=== PATIENT | male | born 1970 | race Caucasian/White ===

== ENCOUNTER 2019-04-22 11:35 | Outpatient (CLI) | payer MEDICAID, SELFPAY ==
[2019-04-22 11:55] LABS: Basophils # 3.5 10^3/uL (0.0-0.1); Eosinophils # 0.6 10^3/uL (0.0-0.8); Hematocrit 41.3 % (42.0-52.0); Hemoglobin 12.6 g/dL (11.7-16.6); Mean Corpuscular HGB Conc 30.5 g/dL (30.0-36.0); Mean Corpuscular Hemoglobin 29.1 pg (28.0-34.0); Mean Corpuscular Volume 95.4 fL (80-94); Mean Platelet Volume 9.7 fL (7.4-10.4); Monocytes # 1.9 10^3/uL (0.2-0.9); Monocytes % 3.3 %; Neutrophils # 28.6 10^3/uL (1.8-7.7); Neutrophils % 49.6 %; Nucleated Red Blood Cells # 0.4 /100WBC; Nucleated Red Blood Cells % 0.7 %; Platelet Count 467 10^3/cmm (130-400); Red Blood Count 4.33 10^6/uL (4.1-5.3); Red Cell Distribution Width 19.1 % (12.1-15.1)
[2019-04-22 12:18] LABS: Slide Review Slide Review Perform
[2019-04-22 12:24] LABS: White Blood Count 57.7 10^3/uL (4.0-10.0)
[2019-04-22 12:26] LABS: Absolute Eosinophils 0.5 10^3/cmm (0.0-0.7); Basophils Absolute 0.6 10^3/cmm (0.0-0.2); Eosinophils 1 %; Lymphocytes 4 %; Monocytes Absolute 0.6 10^3/cmm (0.1-0.6); Segmented Neutrophils 33 %; Total Cells Counted 100 (0-100)
[2019-04-22 12:27] LABS: Platelet Estimate Increased (Normal)
== END 2019-04-22 11:36 | disposition home or self-care (01) ==
LOC: LAB 11:37
PROVIDERS: Family Provider Internal Medicine; PCP Internal Medicine; Visit Provider Nurse Practitioner Family
DX: D72.829 Elevated white blood cell count, unspecified (principal)
CPT/HCPCS: 85007; 85025

== ENCOUNTER 2019-04-27 14:59 | Outpatient (CLI) | payer MEDICAID, SELFPAY ==
--- NOTE | 2019-04-27 21:30 | ONC CON_ITS ---
Dr. Zamora New Patient Note Patient: Pradip Obrien Unit #: [id number]: 1970 Dicatated By: Fabricio Zamora M.D.Date of Visit: Apr 27, 2019 Onc MED New Patient/Consult Referring Physician: Dr. GAL SINGH M.D. Chief Complaint: Leukocytosis and suspected chronic myeloid leukemia. History of Present Illness: This is a 48 year-old man with suspected chronic myeloid leukemia. He has multiple medical illnesses including obesity, hypertension, hyperlipidemia, and type 2 diabetes. He has not required medication for the diabetes since undergoing a gastric sleeve procedure in 2014. He also has coronary artery disease, and he suffered an acute non-ST elevation myocardial infarction in April 2018. He has been treated medically. He had undergone radioactive iodine ablation for Graves' disease at age 18, and he has had subsequent hypothyroidism. He was treated for pancreatitis in 2012, and he also has a history of gout. He had recently been to Dr. Singh's office to establish primary care. His initial laboratory studies, from 04/20/2019, showed significantly elevated white blood cell count at 60,000 with hemoglobin 13.5 g and platelet count 520,000. He then had a repeat CBC here on 04/22/2019. It showed similar findings with hemoglobin 12.6 g, white blood cell count 57,700, and platelet count 467,000. The differential included 33% segs, 26% bands, 15% metamyelocytes, 19% myelocytes, 4% lymphocytes, 1% monocytes, 1% eosinophils, and 1% basophils. I reviewed that blood smear, and it did not appear to show any blasts. 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 His ECOG score is 1. His appetite is not particularly good, but his weight is stable. He has not had fever. He has had occasionally night sweating. He sometimes has shortness of breath. He has had a nonproductive cough for years. He has not been having chest pain. He loose stools most of the time. He has no other GI or complaints. He has pain in his right knee, significant enough to limit his activity. He has had episodes of gout in his left foot. He does not complain of headache. He sometimes has dizziness. He has some tingling in his feet, consistent with neuropathy. Past Medical History: His medical history includes chronic obstructive pulmonary disease, coronary artery disease, depression, gout, hyperlipidemia, hypertension, hypothyroidism, obesity, peripheral neuropathy, and type II diabetes. He had an acute non-ST elevation myocardial infarction in April 2018. He was treated for pancreatitis in 2012, and he underwent radioactive iodine ablation for Graves Disease in 1989. Past Surgical History: His surgical/procedural history includes cholecystectomy, arthroscopic right knee surgery in 2017, and gastric sleeve procedure in 2014. Medications: Allopurinol 1 Tablet (of 300 mg) Oral daily, amLODIPine Besylate 1 Tablet (of 10 mg) Oral daily, Clopidogrel Bisulfate 1 Tablet (of 75 mg) Oral daily, Gabapentin 1 Tablet (of 600 mg) Oral t.i.d., Levothyroxine Sodium 1 Tablet (of 200 mcg) Oral daily, Lisinopril 1 Tablet (of 40 mg) Oral daily, Metoprolol Tartrate 1 Tablet (of 50 mg) Oral b.i.d., Multivitamin 1 Tablet Oral daily, Nitroglycerin Tablet, sublingual Sublingual PRN, Sertraline HCl 1 Tablet (of 50 mg) Oral daily, Simvastatin 1 Tablet (of 40 mg) Oral daily Allergies: No Known Allergies. Social History: Mr. Obrien is single and he is unemployed. He has a history of smoking since age 18, previously in the range of 1 pack of cigarettes daily. He is now smoking less than a pack per day. He does not drink alcohol. Family History: He does not know anything about his father. Mother is still living at age 78. She has dementia, and she has had a stroke. he has 1 sister who is in good health. His maternal grandmother had some type of leukemia or bone cancer. Three maternal aunts had cancer, one with lung cancer, one with colon cancer, and one with breast cancer. Review Of Symptoms: Constitutional - Patient energy level is overall pretty good. He is able to perform all daily activities. He takes care of this mother. Appetite comes and goes and weight is stable. No fever, chills, hot flashes. He has occasional night sweats. ECOG score is 1, Eyes - He has some visual difficulties, ENMT - He has chronic sinus congestion/drainage. No mouth sores. No sore throat or difficulty swallowing, Endocrine - Patient had previous radioactive iodine ablation for Graves Disease with subsequent hypothyroidism, Hematologic/Lymphatic - No abnormal bruising or bleeding, Respiratory - He sometimes has shortness of breath. No cough. No pleuritic pain or hemoptysis, Cardiovascular - No angina pain. No palpitations, Gastrointestinal - No nausea or vomiting. No heartburn or acid reflux. No constipation and no diarrhea, but he does tend to have loose stools. No blood in the stool or black stools, Genitourinary (M) - No dysuria or hematuria. No urinary frequency. No urgency or incontinence, Musculoskeletal - He has pain in his right knee which limits his activity. He has had gout in his left foot, Integumentary - No skin complications, Neurologic - No headache. He has occasional dizziness. He has neuropathy in his feet, Psychiatric - He has some anxiety and depression which is well controlled with medications. He wakes up 1-2 times a night. Vital Signs: Performed on Apr 27, 2019 15:39: 0, 53.65 (HIGH), 2.42 sq.m, 65.00 in, 97 %, 60 /min, 24 /min, 146/74 mm(hg) (HIGH), 97.8 F (LOW), and 322.4 lbs (HIGH). Physical Examination: Constitutional - He is very obese, and he has limited mobility. He does not appear acutely ill, Eyes - Sclerae nonicteric. Conjunctivae clear, ENMT - No lesions noted in the oral cavity, Neck - No mass or thyromegaly, Hematologic/Lymphatic - No cervical, clavicular, or axillary adenopathy, Respiratory - Lungs are clear with somewhat limited air movement bilaterally, Cardiovascular - Heart rhythm is regular. There is no murmur, gallop, or rub noted, Abdomen - Soft and non-tender. Exam is limited due to his body habitus. There were does not appear enlarged. I am not able to palpate the spleen. There is no abdominal mass or ascites noted and there is no inguinal adenopathy, Back/Spine - No spine or CVA tenderness noted, Extremities - No edema. Dorsalis pedis pulses are palpable bilaterally, Integumentary - No rashes. No suspicious skin lesions noted, Neurologic - No focal neurologic deficits noted. Impression: 1. Patient with leukocytosis, predominantly granulocytes with left shift, but without apparent blasts. He also has mildly elevated platelet count. The findings are consistent with chronic myeloid leukemia. He does not appear to be overtly symptomatic. 2. He had undergone radioactive iodine ablation for Graves' disease at age 18 with subsequent hypothyroidism. His recent TSH level was found to be markedly elevated. His other medical illnesses include: 3. Obesity, for which he underwent a gastric sleeve procedure in 2014. 4. Hypertension. 5. Hyperlipidemia. 6. Type 2 diabetes, not requiring medication since the gastric sleeve procedure. 7. Coronary artery disease with acute non-ST elevation myocardial infarction in April 2018. 8. COPD. 9. He has mild peripheral neuropathy. 10. History of gout. 11. He has a history of pancreatitis in 2012. Plan: The laboratory findings were reviewed with the patient. We discussed the clinical implications. The probability is very high that he has chronic myeloid leukemia, which is now very treatable. He will need additional laboratory studies, which I will schedule to be done early next week. These will include CBC, comprehensive metabolic profile, LDH level, uric acid level, a FISH study for BCR/abl, and comprehensive hepatitis profile (per NCCN guidelines). Assuming the FISH study is positive, he will then need a quantitative PCR for BCR/abl and he will need to undergo bone marrow aspiration/biopsy. He would then start treatment with a tyrosine kinase inhibitor, most likely nilotinib. Signed By: Fabricio Zamora M.D. <<Signature on File>>
== END 2019-04-27 15:00 | disposition home or self-care (01) ==
PROVIDERS: Family Provider Internal Medicine; PCP Internal Medicine; Referring Provider Internal Medicine; Visit Provider Internal Medicine Medical Oncology
DX: D72.829 Elevated white blood cell count, unspecified (principal); E66.9 Obesity, unspecified; I10 Essential (primary) hypertension; E78.5 Hyperlipidemia, unspecified; I25.10 Atherosclerotic heart disease of native coronary artery without angina pectoris; I25.2 Old myocardial infarction; E89.0 Postprocedural hypothyroidism; E11.42 Type 2 diabetes mellitus with diabetic polyneuropathy; J44.9 Chronic obstructive pulmonary disease, unspecified; F17.210 Nicotine dependence, cigarettes, uncomplicated; Z79.02 Long term (current) use of antithrombotics/antiplatelets; Z79.899 Other long term (current) drug therapy; Z98.84 Bariatric surgery status; Z92.3 Personal history of irradiation
CPT/HCPCS: 99205

== ENCOUNTER 2019-05-01 12:31 | Outpatient (CLI) | payer MEDICAID, SELFPAY ==
[2019-05-01 13:24] LABS: Basophils # 3.3 10^3/uL (0.0-0.1); Basophils % 5.6 %; Eosinophils # 0.5 10^3/uL (0.0-0.8); Eosinophils % 0.9 %; Hematocrit 38.9 % (42.0-52.0); Lymphocytes # 4.5 10^3/uL (0.8-4.8); Lymphocytes % 7.7 %; Mean Corpuscular HGB Conc 30.8 g/dL (30.0-36.0); Mean Corpuscular Hemoglobin 30.6 pg (28.0-34.0); Mean Corpuscular Volume 99.2 fL (80-94); Mean Platelet Volume 10.1 fL (7.4-10.4); Monocytes % 3.5 %; Neutrophils # 29.6 10^3/uL (1.8-7.7); Neutrophils % 50.4 %; Nucleated Red Blood Cells # 0.8 /100WBC; Nucleated Red Blood Cells % 1.3 %; Platelet Count 416 10^3/cmm (130-400); Red Blood Count 3.92 10^6/uL (4.1-5.3); Red Cell Distribution Width 19.2 % (12.1-15.1)
[2019-05-01 13:42] LABS: Alanine Aminotransferase 27 U/L (0-41); Albumin Level 4.4 g/dL (3.5-5.2); Alkaline Phosphatase 124 IU/L (40-130); Anion Gap 12.6 (5-19); Aspartate Amino Transferase 26 U/L (0-40); Blood Urea Nitrogen 16 mg/dL (6-20); Calcium 9.4 mg/dL (8.5-10.5); Carbon Dioxide 26 mmol/L (22-29); Chloride 106 mmol/L (98-107); Globulin 3.8 g/dL (1.3-4.6); Glomerular Filtration Rate 49.7 mL/min (90-130); Glucose 111 mg/dL (65-115); Lactate Dehydrogenase 368 U/L (135-225); Osmolality Calculated 287 mOsm/kg (285-295); Potassium 4.6 mmol/L (3.5-5.1); Sodium 140 mmol/L (136-145); Total Bilirubin 0.4 mg/dL (0.15-1.2); Total Protein 8.2 g/dL (6.6-8.7); Uric Acid 7.5 mg/dL (3.4-7.0)
[2019-05-01 13:58] LABS: Hepatitis A Antibody IgM. Non-Reactive (Nonreactive); Hepatitis B Surface AB. 3.5 (0-8.5); Hepatitis B Surface Antigen. Non-Reactive (Nonreactive); Hepatitis C Virus Antibody Non-Reactive (Nonreactive)
[2019-05-01 14:28] LABS: White Blood Count 58.7 10^3/uL (4.0-10.0)
[2019-05-01 14:30] LABS: Slide Review Slide Review Perform
[2019-05-01 14:51] LABS: Absolute Eosinophils 1.1 10^3/cmm (0.0-0.7); Absolute Segmented Neutrophil 42.2 10/cmm (1.6-7.1); Eosinophils 2 %; Lymphocytes 16 %; Platelet Estimate Increased (Normal); Segmented Neutrophils 72 %; Total Cells Counted 100 (0-100)
[2019-05-01 14:52] LABS: Poikilocytosis Trace
[2019-05-01 14:53] LABS: Anisocytosis Trace; LAB Peripheral Smear Sent for Review; Toxic Granulation 1+
[2019-06-02 12:03] LABS: Miscellaneous Test See Scanned Lab Rpt
== END 2019-05-01 12:32 | disposition home or self-care (01) ==
LOC: ONCMED 12:32
PROVIDERS: Family Provider Internal Medicine; PCP Internal Medicine; Visit Provider Internal Medicine Medical Oncology
DX: C92.10 Chronic myeloid leukemia, BCR/ABL-positive, not having achieved remission (principal)
CPT/HCPCS: 80053; 83615; 84550; 85007; 85025; 86705; 86706; 86709; 86803; 87340

== ENCOUNTER 2019-06-23 09:28 | Outpatient (CLI) | payer MEDICAID, SELFPAY ==
[2019-06-23 09:58] LABS: Hematocrit 37.4 % (42.0-52.0); Hemoglobin 11.3 g/dL (11.7-16.6); Mean Corpuscular HGB Conc 30.2 g/dL (30.0-36.0); Mean Corpuscular Hemoglobin 28.3 pg (28.0-34.0); Mean Corpuscular Volume 93.5 fL (80-94); Mean Platelet Volume 9.4 fL (7.4-10.4); Nucleated Red Blood Cells # 0.3 /100WBC; Nucleated Red Blood Cells % 0.7 %; Platelet Count 287 10^3/cmm (130-400); Red Cell Distribution Width 19.5 % (12.1-15.1)
[2019-06-23 10:38] LABS: Thyroid Stimulating Hormone 8.39 uIU/mL (0.27-4.20)
[2019-06-23 11:22] LABS: Free T4 Free Thyroxine 1.22 ng/dL (0.82-1.77)
[2019-06-23 11:53] LABS: Slide Review Slide Review Perform; White Blood Count 45.3 10^3/uL (4.0-10.0)
[2019-06-23 11:55] LABS: Absolute Eosinophils 0.4 10^3/cmm (0.0-0.7); Absolute Segmented Neutrophil 17.2 10/cmm (1.6-7.1); Band Neutrophils Absolute 13.6 10^3/cmm (0.0-1.2); Basophils Absolute 1.4 10^3/cmm (0.0-0.2); Eosinophils 1 %; Lymphocytes 18 %; Monocytes Absolute 0.5 10^3/cmm (0.1-0.6); Segmented Neutrophils 38 %; Total Cells Counted 100 (0-100)
[2019-06-23 11:56] LABS: Anisocytosis Trace; Platelet Estimate Normal (Normal); Polychromasia Trace
== END 2019-06-23 09:29 | disposition home or self-care (01) ==
LOC: ONCMED 09:28
PROVIDERS: PCP Internal Medicine; Visit Provider Internal Medicine Medical Oncology
DX: D72.829 Elevated white blood cell count, unspecified (principal); E03.9 Hypothyroidism, unspecified
CPT/HCPCS: 36415; 84439; 84443; 85007; 85025; 93005

== ENCOUNTER 2019-06-30 08:56 | Outpatient (CLI) | payer MEDICAID, SELFPAY ==
[2019-06-30 09:46] LABS: Hematocrit 34.9 % (42.0-52.0); Hemoglobin 10.6 g/dL (11.7-16.6); Mean Corpuscular HGB Conc 30.4 g/dL (30.0-36.0); Mean Corpuscular Hemoglobin 28.3 pg (28.0-34.0); Mean Corpuscular Volume 93.1 fL (80-94); Mean Platelet Volume 9.8 fL (7.4-10.4); Nucleated Red Blood Cells # 0.2 /100WBC; Nucleated Red Blood Cells % 1.4 %; Platelet Count 278 10^3/cmm (130-400); Red Blood Count 3.75 10^6/uL (4.1-5.3); Red Cell Distribution Width 19.4 % (12.1-15.1); White Blood Count 17.1 10^3/uL (4.0-10.0)
[2019-06-30 10:08] LABS: Alanine Aminotransferase 16 U/L (0-41); Albumin Level 3.5 g/dL (3.5-5.2); Alkaline Phosphatase 117 IU/L (40-130); Anion Gap 15.5 (5-19); Aspartate Amino Transferase 14 U/L (0-40); Blood Urea Nitrogen 9 mg/dL (6-20); Carbon Dioxide 20 mmol/L (22-29); Chloride 107 mmol/L (98-107); Globulin 3.7 g/dL (1.3-4.6); Glomerular Filtration Rate 58.7 mL/min (90-130); Glucose 157 mg/dL (65-115); Lipase 61 U/L (13-60); Osmolality Calculated 285 mOsm/kg (285-295); Potassium 4.5 mmol/L (3.5-5.1); Sodium 138 mmol/L (136-145); Total Bilirubin 0.4 mg/dL (0.15-1.2); Total Protein 7.2 g/dL (6.6-8.7)
[2019-06-30 10:43] LABS: Slide Review Slide Review Perform
[2019-06-30 10:45] LABS: Absolute Eosinophils 0.1 10^3/cmm (0.0-0.7); Absolute Segmented Neutrophil 8.3 10/cmm (1.6-7.1); Band Neutrophils Absolute 1.7 10^3/cmm (0.0-1.2); Eosinophils 1 %; Lymphocytes 18 %; Monocytes Absolute 1.2 10^3/cmm (0.1-0.6); Platelet Estimate Normal (Normal); Segmented Neutrophils 49 %; Total Cells Counted 100 (0-100)
[2019-06-30 10:46] LABS: Polychromasia 1+
--- NOTE | 2019-07-01 17:11 | ONC FU_ITS ---
[facility] Patient Note Patient: Pradip Obrien Unit #: [id number]: 1970 Dictated By: Iva CopeDate of Visit: June 30, 2019 Onc MED Follow-Up/Prog Note Chief Complaint: Leukocytosis and suspected chronic myeloid leukemia. History of Present Illness: Mr Obrien is a 48 year-old man with suspected chronic myeloid leukemia. He has multiple medical illnesses including obesity, hypertension, hyperlipidemia, and type 2 diabetes. He has not required medication for the diabetes since undergoing a gastric sleeve procedure in 2014. He also has coronary artery disease, and he suffered an acute non-ST elevation myocardial infarction in April 2018. He has been treated medically. He had undergone radioactive iodine ablation for Graves' disease at age 18, and he has had subsequent hypothyroidism. He was treated for pancreatitis in 2012, and he also has a history of gout. Mr Obrien presented to Dr. Singh's office to establish primary care in early April 2019. His initial laboratory studies, from 04/20/2019, showed significantly elevated white blood cell count at 60,000 with hemoglobin 13.5 g and platelet count 520,000. He then had a repeat CBC here on 04/22/2019. It showed similar findings with hemoglobin 12.6 g, white blood cell count 57,700, and platelet count 467,000. The differential included 33% segs, 26% bands, 15% metamyelocytes, 19% myelocytes, 4% lymphocytes, 1% monocytes, 1% eosinophils, and 1% basophils. Dr Zamora reviewed that blood smear, and reported it did not appear to show any blasts. Mr. Obrien was seen by Dr. Zamora in mid April 2019. At that time additional laboratory tests were requested to include CBC, CMP LDH, hepatitis profile, CML panel???BCR/ABL, quant PCR, baseline EKG along with a bone marrow biopsy aspiration of flow cytometry. It was requested at that time that we pursue insurance coverage/patient assistance for Tasigna 300 mg orally twice daily. Mr. Arteaga had BCR/ABL per FISH on 05/01/2019. It was reported as positive for BCR/ABL 1 fusion. The report also stated there was translocation of the ABL 1 gene on the chromosome 9 with the BCR gene on chromosome 22 and this was detected 94% of nuclei counted. This translocation is usually considered diagnostic for chronic myeloid leukemia. Mr. Arteaga was informed of his laboratory results and instructed that he could proceed to the Tasigna. It was still in the process of being worked with insurance approval. He follow a did get approval and coverage for the Tasigna.. He did start the medication on 06/16/2019. He is tolerating it well at this trime. Mr. Arteaga is here today for follow-up. He has now been on the nilotinib (Tasigna). He states he feels good. He is appetite is fair. He denies have occasional queasiness after taking the medication on empty stomach and has not been taking any antiemetics as he does not think he has any. He states is really not been bad enough that he wants to take any medication for the nausea/queasiness. He denies any fever or chills. He denies any shortness of breath orthopnea. He has had no vomiting. He denies any diarrhea or constipation. He continues to do all of his ADLs without assistance. He does help care for his elderly mother. He denies any chest pain or palpitations.. He denies any neuropathy symptoms. He denies any lower extremity edema or leg cramps. He states he really does feel good. His ECOG is 0. Past Medical History: Chronic obstructive pulmonary disease Coronary artery disease Depression Gout Hyperlipidemia Hypertension Hypothyroidism Obesity Peripheral neuropathy Type II diabetes Non-ST elevation myocardial infarction in 2018 Pancreatitis in 2012 Graves Disease in 1989 Past Surgical History: Cholecystectomy Arthroscopic right knee surgery in 2018 Gastric sleeve procedure in 2014 Allergies: No Known Allergies. Medications: Allopurinol 1 Tablet (of 300 mg) Oral daily amLODIPine Besylate 1 Tablet (of 10 mg) Oral daily Clopidogrel Bisulfate 1 Tablet (of 75 mg) Oral daily Gabapentin 1 Tablet (of 600 mg) Oral t.i.d. Levothyroxine Sodium 1 Tablet (of 200 mcg) Oral daily Lisinopril 1 Tablet (of 40 mg) Oral daily Metoprolol Tartrate 1 Tablet (of 50 mg) Oral b.i.d. Multivitamin 1 Tablet Oral daily Nitroglycerin Tablet, sublingual Sublingual PRN Sertraline HCl 1 Tablet (of 50 mg) Oral daily Simvastatin 1 Tablet (of 40 mg) Oral daily Family History: Mr. Obrien's mother is alive: heart disease, and hyperlipidemia, and hypertension, and kidney disease. He does not know anything about his father. Mother is still living at age 78. She has dementia, and she has had a stroke. he has 1 sister who is in good health. His maternal grandmother had some type of leukemia or bone cancer. Three maternal aunts had cancer, one with lung cancer, one with colon cancer, and one with breast cancer. Social History: Mr. Obrien is single and he is unemployed. He is a daily smoker who has smoked 0.5 packs/day for 31 years. He has no history of drinking. He has indicated exposure to the following products: cigarettes. He has a history of smoking since age 18, previously in the range of 1 pack of cigarettes daily. He is now smoking less than a pack per day. He does not drink alcohol. Review Of Symptoms: Constitutional Denies fevers, chills, night sweats, excessive fatigue or weight loss. Allergic/Immunologic No reactions. Eyes Denies significant visual changes. No diplopia. No amaurosis. ENMT Denies changes in hearing, sore throat, mouth sores, difficulty or changes in swallowing ability, and/or sinus drainage. Hematologic/Lymphatic Denies easy bruising or bleeding. The patient denies any tender or palpable lymph nodes. Respiratory Denies dyspnea on exertion, chest pain, cough or hemoptysis. Denies orthopnea. Cardiovascular Denies anginal chest pain, palpitations or orthopnea. Gastrointestinal Denies nausea, vomiting, diarrhea, GI bleeding, or constipation. Denies change in bowel habits and/or stool color, no heartburn or early satiety. Genitourinary (M) Denies hematuria, dysuria, increased frequency, urgency, hesitancy or incontinence. Musculoskeletal Denies joint pain, swelling or redness. No decreased range of motion. Integumentary Denies chronic rashes, inflammation, ulcerations or skin changes. Neurologic Denies headache, blurred vision, and no areas of focal weakness or numbness. Normal gait. No sensory problems. Psychiatric Denies insomnia, depression, reji or mood swings. Vital Signs: Performed on June 30, 2019 10:58 Height - 65.00 in Weight - 315.4 lbs (LOW) BSA - 2.40 sq.m BMI - 52.49 (HIGH) Temperature - 97.4 F (LOW) Pulse - 76 /min Respiration - 17 /min BP - 134/78 mm(hg) O2 Sat - 97 % Pain - 0,1 - No physically strenuous activity, but ambulatory and able to carry out light or sedentary work (e.g. office work, light house work). (ECOG) Physical Examination: Constitutional Alert, oriented, no acute distress. Skin pink, warm and dry. Head Normocephalic; atraumatic. Eyes Conjunctivae and sclerae are clear and without icterus. Pupils are reactive and equal. ENMT No oral exudates, ulcers, masses, thrush or mucositis. Oropharynx clear. Tongue normal. Respiratory Lungs are clear to auscultation without rhonchi or wheezing. Cardiovascular Regular rate and rhythm of heart without murmurs,clicks, gallops or rubs. Abdomen Non-tender, non-distended, no masses or ascites. Good bowel sounds noted in all quads. No guarding or rebound tenderness. No pulsatile masses. Back/Spine Non-tender to palpation. Extremities No visible deformities, no cyanosis, clubbing or edema. Musculoskeletal No tenderness or swelling, normal range of motion without obvious weakness. Integumentary No rashes or lesions. Neurologic No sensory or motor deficits, normal cerebellar function, normal gait. Psychiatric Alert and oriented times three. Coherent speech. Verbalizes understanding of our discussions today. Laboratory:Test performed on June 30, 2019 09:33 Sodium 138 mmol/L Potassium 4.5 mmol/L Chloride 107 mmol/L CO2 20 mmol/L Anion Gap 15.5 BUN 9 mg/dL Creatinine 1.3 mg/dL Cr Clearance (Est) 139.09 mL/min eGFR 58.7 mL/min Glucose 157 mg/dL Calcium 9.0 mg/dL Protein, Total 7.2 g/dL Albumin 3.5 g/dL Globulin 3.7 g/dL Bilirubin, Total 0.4 mg/dL ALT (SGPT) 16 U/L AST (SGOT) 14 U/L Alkaline Phosphatase 117 IU/L WBC 17.1 10 3/uL Manual Bands % 10.0 % RBC 3.75 10 6/uL HGB 10.6 g/dL Manual Lymphs % 18 % HCT 34.9 % Manual Monos % 7.0 % MCV 93.1 fL MCH 28.3 pg MCHC 30.4 g/dL Metamyelocytes % 14.0 % RDW 19.4 % Myelocytes % 1.0 % Platelet Count 278 10 3/cmm MPV 9.8 fL CBC Slide Review Slide Review Perform Polychromasia 1+ Manual Bands Abs 1.7 10 3/cmm Manual Monocytes Abs 1.2 10 3/cmm Manual Eosinophils Abs 0.1 10 3/cmm Test performed on June 23, 2019 09:45 T4, Free 1.22 ng/dL TSH 8.39 uIU/mL Manual Basos % 3.0 % Anisocytosis Trace Manual Basophils Abs 1.4 10 3/cmm Test performed on May 01, 2019 13:00 LDH (Total) 368 U/L Uric Acid 7.5 mg/dL Neutrophils 29.6 10 3/uL Promyelocytes % 1.0 % Lymphocytes 4.5 10 3/uL Monocytes 2.0 10 3/uL Eosinophils 0.5 10 3/uL Basophils 3.3 10 3/uL Neutrophil % 50.4 % Lymphocyte % 7.7 % Monocyte % 3.5 % Toxic Granulation 1+ Eosinophil % 0.9 % Basophils % 5.6 % Poikilocytosis Trace Impression: 1. Patient with leukocytosis, predominantly granulocytes with left shift, but without apparent blasts. He also has mildly elevated platelet count. The findings are consistent with chronic myeloid leukemia. He does not appear to be overtly symptomatic. 2. He had undergone radioactive iodine ablation for Graves' disease at age 18 with subsequent hypothyroidism. His recent TSH level was found to be markedly elevated. His other medical illnesses include: 3. Obesity, for which he underwent a gastric sleeve procedure in 2014. 4. Hypertension. 5. Hyperlipidemia. 6. Type 2 diabetes, not requiring medication since the gastric sleeve procedure. 7. Coronary artery disease with acute non-ST elevation myocardial infarction in April 2018. 8. COPD. 9. He has mild peripheral neuropathy. 10. History of gout. 11. He has a history of pancreatitis in 2013. Dr Zamora discussed the laboratory findings with the patient at his visit in April 2019. He discussed the clinical implications. At that time Dr Zamora felt that the probability was very high that he has chronic myeloid leukemia, which is very treatable. Additional laboratory studies, included CBC, comprehensive metabolic profile, LDH level, uric acid level, a FISH study for BCR/abl, and comprehensive hepatitis profile (per NCCN guidelines). Assuming the FISH study is positive, he will then need a quantitative PCR for BCR/abl and he will need to undergo bone marrow aspiration/biopsy. He would then start treatment with a tyrosine kinase inhibitor, most likely nilotinib. Mr. Obrien did have positive BCR ABL per FISH. He was advised to pursue nilotinib. His current dose is 150 mg 2 tablets twice daily. He began the nilotinib on June 16, 2019.. Plan: 1. Proceed with to [employer] 300 mg twice daily. 2. We may add Compazine or ondansetron if he would like to help with the queasiness that he has intermittently . He states he does not want to try it just yet but will try taking it with just a small snack and see if that helps with the queasiness. 3. June 30, 2019 labs were reviewed in detail and discussed with Mr. Arteaga and a copy was given to him. WBC is 17.1 hemoglobin 10.5 platelets 278,000. His white count on May 01, 2019 was 58.7. Last week it was 45.3. 4. His baseline EKG from June 23, 2019 reported a QTC of 439 ms. Per today's EKG his QTC is 420 ms. according to the nilotinib package insert, the goal is to keep the QTC less than 480 ms. 5. Plan to continue weekly CBC with a CMP. Have asked for magnesium and follow-up. We will plan to see him back in 2 weeks with labs as above. 6. Mr. Obrien was instructed to contact us in the interim should questions or problems arise. Signed By: Iva Cope-, AOCNP Fabricio Zamora MD <<Signature on File>>
== END 2019-06-30 08:57 | disposition home or self-care (01) ==
LOC: ONCMED 08:57
PROVIDERS: Internal Medicine Medical Oncology; PCP Internal Medicine; Visit Provider Nurse Practitioner
DX: C92.10 Chronic myeloid leukemia, BCR/ABL-positive, not having achieved remission (principal); E05.00 Thyrotoxicosis with diffuse goiter without thyrotoxic crisis or storm; E89.0 Postprocedural hypothyroidism; E66.9 Obesity, unspecified; I10 Essential (primary) hypertension; E78.5 Hyperlipidemia, unspecified; E11.9 Type 2 diabetes mellitus without complications; I25.10 Atherosclerotic heart disease of native coronary artery without angina pectoris; I25.2 Old myocardial infarction; F17.210 Nicotine dependence, cigarettes, uncomplicated; J44.9 Chronic obstructive pulmonary disease, unspecified; G62.9 Polyneuropathy, unspecified; Z51.81 Encounter for therapeutic drug level monitoring; Z79.899 Other long term (current) drug therapy; Z68.43 Body mass index [BMI] 50.0-59.9, adult; Z98.84 Bariatric surgery status
CPT/HCPCS: 80053; 83690; 85007; 85025; 93005; 99214

== ENCOUNTER 2019-07-17 11:46 | Outpatient (CLI) | payer MEDICAID, SELFPAY ==
[2019-07-17 12:21] LABS: Basophils # 0.1 10^3/uL (0.0-0.1); Basophils % 1.4 %; Eosinophils # 0.1 10^3/uL (0.0-0.8); Eosinophils % 1.4 %; Hematocrit 39.3 % (42.0-52.0); Hemoglobin 11.6 g/dL (11.7-16.6); Lymphocytes # 1.5 10^3/uL (0.8-4.8); Lymphocytes % 23.2 %; Mean Corpuscular HGB Conc 29.5 g/dL (30.0-36.0); Mean Corpuscular Hemoglobin 27.9 pg (28.0-34.0); Mean Corpuscular Volume 94.5 fL (80-94); Mean Platelet Volume 9.5 fL (7.4-10.4); Monocytes # 0.3 10^3/uL (0.2-0.9); Monocytes % 4.6 %; Neutrophils # 4.3 10^3/uL (1.8-7.7); Neutrophils % 68.9 %; Nucleated Red Blood Cells % 0 %; Platelet Count 255 10^3/cmm (130-400); Red Blood Count 4.16 10^6/uL (4.1-5.3); White Blood Count 6.3 10^3/uL (4.0-10.0)
[2019-07-17 12:34] LABS: Alanine Aminotransferase 15 U/L (0-41); Albumin Level 3.7 g/dL (3.5-5.2); Alkaline Phosphatase 124 IU/L (40-130); Anion Gap 12.4 (5-19); Aspartate Amino Transferase 14 U/L (0-40); Blood Urea Nitrogen 10 mg/dL (6-20); Calcium 8.6 mg/dL (8.5-10.5); Carbon Dioxide 21 mmol/L (22-29); Chloride 105 mmol/L (98-107); Globulin 3.3 g/dL (1.3-4.6); Glomerular Filtration Rate 71.1 mL/min (90-130); Glucose 192 mg/dL (65-115); Magnesium 2.1 mg/dL (1.7-2.3); Osmolality Calculated 279 mOsm/kg (285-295); Potassium 4.4 mmol/L (3.5-5.1); Sodium 134 mmol/L (136-145); Total Bilirubin 0.6 mg/dL (0.15-1.2)
[2019-07-17 14:28] LABS: Lactate Dehydrogenase 121 U/L (135-225)
--- NOTE | 2019-07-21 17:39 | ONC FU_ITS ---
Dr. Zamora Patient Follow-Up Note Patient: Pradip Obrien Unit #: [id number]: 1970 Dicatated By: Fabricio Zamora M.D.Date of Visit:Jul 17, 2019 Onc Med Follow-up/Prog Note Chief Complaint: Chronic myeloid leukemia. History of Present Illness: This is a 48 year-old man with suspected chronic myeloid leukemia. He has multiple medical illnesses including obesity, hypertension, hyperlipidemia, and type 2 diabetes. He has not required medication for the diabetes since undergoing a gastric sleeve procedure in 2014. He also has coronary artery disease, and he suffered an acute non-ST elevation myocardial infarction in April 2018. He has been treated medically. He had undergone radioactive iodine ablation for Graves' disease at age 18, and he has had subsequent hypothyroidism. He was treated for pancreatitis in 2012, and he also has a history of gout. He had seen Dr. Singh to establish primary care. His initial laboratory studies, from 04/20/2019, showed significantly elevated white blood cell count at 60,000 with hemoglobin 13.5 g and platelet count 520,000. He then had a repeat CBC here on 04/22/2019. It showed similar findings with hemoglobin 12.6 g, white blood cell count 57,700, and platelet count 467,000. The differential included 33% segs, 26% bands, 15% metamyelocytes, 19% myelocytes, 4% lymphocytes, 1% monocytes, 1% eosinophils, and 1% basophils. I reviewed that blood smear, and it did not appear to show any blasts. A FISH study on 05/01/2019 confirmed the presence of the BCR/abl translocation and 94% of the nuclei counted, consistent with chronic myeloid leukemia. There was a delay in getting treatment started due to insurance issues. He eventually did begin treatment with nilotinib 300 mg twice daily on 06/16/2019. He is seen for a follow-up visit. He is feeling good generally. He says he sometimes feels sluggish, but he pretty much has normal activity. ECOG score is 0. He is not very hungry, and he generally eats just 1 meal a day. His weight, though, is stable. He has not had fever. He does have some night sweating. He sometimes has shortness of breath. He has just occasional cough. He does not complain of chest pain. He has no GI or complaints. He has some pain in his feet, attributed to chronic gout pain. He has tingling in his feet, consistent with neuropathy. Medications: Allopurinol 1 Tablet (of 300 mg) Oral daily, amLODIPine Besylate 1 Tablet (of 10 mg) Oral daily, Clopidogrel Bisulfate 1 Tablet (of 75 mg) Oral daily, Gabapentin 1 Tablet (of 600 mg) Oral t.i.d., Levothyroxine Sodium 1 Tablet (of 200 mcg) Oral daily, Lisinopril 1 Tablet (of 40 mg) Oral daily, Metoprolol Tartrate 1 Tablet (of 50 mg) Oral b.i.d., Multivitamin 1 Tablet Oral daily, Nitroglycerin Tablet, sublingual Sublingual PRN, Sertraline HCl 1 Tablet (of 50 mg) Oral daily, Simvastatin 1 Tablet (of 40 mg) Oral daily Allergies: No Known Allergies. Review of Systems: Constitutional - He generally feels good. His energy varies day to day. He continues to do all his normal activity. His appetite is has decreased and weight is stable. No fever or chills. He has occasional night sweats, this is chronic for him. No hot flashes. ECOG score is 0, ENMT - No sinus congestion/drainage. No mouth sores. No sore throat or difficulty swallowing, Hematologic/Lymphatic - No abnormal bruising or bleeding, Respiratory - He has intermittent shortness of breath with activity. This is not new. He has an occasional cough. No pleuritic pain or hemoptysis, Cardiovascular - No angina pain. No palpitations, Gastrointestinal - No nausea or vomiting. No heartburn or acid reflux. No diarrhea or constipation. No blood in the stool or black stools, Genitourinary (M) - No dysuria or hematuria. No urinary frequency. No urgency or incontinence, Musculoskeletal - He has unchanged gout pain in his feet, Integumentary - No skin complications, Neurologic - No headache or dizziness. He has has neuropathy in his feet. No other focal neurologic symptoms, Psychiatric - His anxiety is adequately managed with sertraline. He sometimes has difficulty sleeping. Vital Signs: Performed on Jul 17, 2019 13:33 Height - 65.00 in Weight - 316.2 lbs (HIGH) BSA - 2.40 sq.m BMI - 52.62 (HIGH) Temperature - 97.9 F (LOW) Pulse - 65 /min Respiration - 24 /min BP - 124/76 mm(hg) O2 Sat - 99 % Pain - 0 Physical Examination: Constitutional - He looks pretty good generally, Eyes - Sclerae nonicteric. Conjunctivae clear, ENMT - No lesions noted in the oral cavity, Hematologic/Lymphatic - No cervical, clavicular, or axillary adenopathy, Respiratory - Lungs are clear with somewhat limited air movement bilaterally, Cardiovascular - Heart rhythm is regular. There is no murmur, gallop, or rub noted, Abdomen - Distended. Liver and spleen do not appear enlarged. There is no abdominal mass or ascites noted and there is no inguinal adenopathy, Extremities - No edema, Integumentary - No skin eruption, Neurologic - No focal neurologic deficits noted. Lab/Imaging: Test performed on Jul 17, 2019 11:57 LDH (Total) 121 U/L Magnesium 2.1 mg/dL Sodium 134 mmol/L Potassium 4.4 mmol/L Chloride 105 mmol/L CO2 21 mmol/L Anion Gap 12.4 BUN 10 mg/dL Creatinine 1.1 mg/dL Cr Clearance (Est) 164.80 mL/min eGFR 71.1 mL/min Glucose 192 mg/dL Calcium 8.6 mg/dL Protein, Total 7.0 g/dL Albumin 3.7 g/dL Globulin 3.3 g/dL Bilirubin, Total 0.6 mg/dL ALT (SGPT) 15 U/L AST (SGOT) 14 U/L Alkaline Phosphatase 124 IU/L WBC 6.3 10 3/uL RBC 4.16 10 6/uL HGB 11.6 g/dL HCT 39.3 % MCV 94.5 fL MCH 27.9 pg MCHC 29.5 g/dL RDW 19.0 % Platelet Count 255 10 3/cmm MPV 9.5 fL Neutrophils 4.3 10 3/uL Lymphocytes 1.5 10 3/uL Monocytes 0.3 10 3/uL Eosinophils 0.1 10 3/uL Basophils 0.1 10 3/uL Neutrophil % 68.9 % Lymphocyte % 23.2 % Monocyte % 4.6 % Eosinophil % 1.4 % Basophils % 1.4 % Impression: 1. Patient with leukocytosis, predominantly granulocytes with left shift, but without apparent blasts. He also had mildly elevated platelet count. A FISH study on 05/01/2019 confirmed the presence of the BCR/abl translocation and 94% of the nuclei counted, consistent with chronic myeloid leukemia. 2. He had undergone radioactive iodine ablation for Graves' disease at age 18 with subsequent hypothyroidism. His recent TSH level was found to be markedly elevated. His other medical illnesses include: 3. Obesity, for which he underwent a gastric sleeve procedure in 2014. 4. Hypertension. 5. Hyperlipidemia. 6. Type 2 diabetes, not requiring medication since the gastric sleeve procedure. 7. Coronary artery disease with acute non-ST elevation myocardial infarction in April 2018. 8. COPD. 9. He has mild peripheral neuropathy. 10. History of gout. 11. He has a history of pancreatitis in 2012. He began treatment with nilotinib 300 mg bid on 06/16/2019. Thus far he has tolerated it well, and he appears to be showing a good response. Plan: He will continue nilotinib 300 mg twice daily. I will need to continue to monitor his EKG, as he had a borderline prolonged QT interval. He will be scheduled for a followup visit with a quantitative PCR in 2 months. Signed By: Fabricio Zamora M.D. <<Signature on File>>
== END 2019-07-17 11:47 | disposition home or self-care (01) ==
LOC: ONCMED 11:49
PROVIDERS: PCP Internal Medicine; Visit Provider Internal Medicine Medical Oncology
DX: C92.10 Chronic myeloid leukemia, BCR/ABL-positive, not having achieved remission (principal); R94.31 Abnormal electrocardiogram [ECG] [EKG]; E66.9 Obesity, unspecified; I10 Essential (primary) hypertension; E78.5 Hyperlipidemia, unspecified; I25.10 Atherosclerotic heart disease of native coronary artery without angina pectoris; I25.2 Old myocardial infarction; J44.9 Chronic obstructive pulmonary disease, unspecified; E11.42 Type 2 diabetes mellitus with diabetic polyneuropathy; E89.0 Postprocedural hypothyroidism; Z79.899 Other long term (current) drug therapy
CPT/HCPCS: 36415; 80053; 83615; 83735; 85025; 99214

== ENCOUNTER 2019-08-17 09:53 | Outpatient (CLI) | payer MEDICAID, SELFPAY ==
[2019-08-17 10:53] LABS: Alanine Aminotransferase 19 U/L (0-41); Albumin Level 3.9 g/dL (3.5-5.2); Alkaline Phosphatase 105 IU/L (40-130); Anion Gap 13.6 (5-19); Aspartate Amino Transferase 20 U/L (0-40); Blood Urea Nitrogen 9 mg/dL (6-20); Calcium 9.2 mg/dL (8.5-10.5); Carbon Dioxide 25 mmol/L (22-29); Chloride 103 mmol/L (98-107); Globulin 3.2 g/dL (1.3-4.6); Glomerular Filtration Rate 71.1 mL/min (90-130); Glucose 141 mg/dL (65-115); Osmolality Calculated 282 mOsm/kg (285-295); Potassium 4.6 mmol/L (3.5-5.1); Sodium 137 mmol/L (136-145); Total Bilirubin 0.4 mg/dL (0.15-1.2); Total Protein 7.1 g/dL (6.6-8.7)
[2019-08-17 10:55] LABS: Basophils # 0.1 10^3/uL (0.0-0.1); Basophils % 2.3 %; Eosinophils # 0.5 10^3/uL (0.0-0.8); Eosinophils % 7.5 %; Hematocrit 42.1 % (42.0-52.0); Hemoglobin 12.8 g/dL (11.7-16.6); Lymphocytes # 1.2 10^3/uL (0.8-4.8); Lymphocytes % 19.2 %; Mean Corpuscular HGB Conc 30.4 g/dL (30.0-36.0); Mean Corpuscular Hemoglobin 26.7 pg (28.0-34.0); Mean Corpuscular Volume 87.7 fL (80-94); Mean Platelet Volume 10.2 fL (7.4-10.4); Monocytes # 0.4 10^3/uL (0.2-0.9); Neutrophils # 3.8 10^3/uL (1.8-7.7); Neutrophils % 63.7 %; Nucleated Red Blood Cells % 0 %; Platelet Count 192 10^3/cmm (130-400); Red Cell Distribution Width 15.9 % (12.1-15.1)
== END 2019-08-17 09:54 | disposition home or self-care (01) ==
LOC: ONCMED 09:56
PROVIDERS: PCP Internal Medicine; Visit Provider Internal Medicine Medical Oncology
DX: C92.10 Chronic myeloid leukemia, BCR/ABL-positive, not having achieved remission (principal); D72.829 Elevated white blood cell count, unspecified
CPT/HCPCS: 80053; 85025

== ENCOUNTER 2019-09-18 10:12 | Outpatient (CLI) | payer MEDICAID, SELFPAY ==
[2019-09-18 10:55] LABS: Basophils # 0.1 10^3/uL (0.0-0.1); Basophils % 1.4 %; Eosinophils # 0.3 10^3/uL (0.0-0.8); Eosinophils % 4.1 %; Hematocrit 43.6 % (42.0-52.0); Hemoglobin 13.2 g/dL (11.7-16.6); Lymphocytes # 1.6 10^3/uL (0.8-4.8); Lymphocytes % 25.9 %; Mean Corpuscular HGB Conc 30.3 g/dL (30.0-36.0); Mean Corpuscular Hemoglobin 25.2 pg (28.0-34.0); Mean Corpuscular Volume 83.2 fL (80-94); Mean Platelet Volume 10.5 fL (7.4-10.4); Monocytes # 0.5 10^3/uL (0.2-0.9); Monocytes % 7.1 %; Neutrophils # 3.85 10^3/uL (1.8-7.7); Neutrophils % 61.2 %; Nucleated Red Blood Cells % 0 %; Platelet Count 186 10^3/cmm (130-400); Red Blood Count 5.24 10^6/uL (4.1-5.3); Red Cell Distribution Width 15.3 % (12.1-15.1); White Blood Count 6.3 10^3/uL (4.0-10.0)
[2019-09-18 11:18] LABS: Estmated Average Glucose 197; Hemoglobin A1C 8.5 % (4.0-6.0)
[2019-09-18 11:28] LABS: Alanine Aminotransferase 26 U/L (0-41); Alkaline Phosphatase 134 IU/L (40-130); Anion Gap 10.6 (5-19); Aspartate Amino Transferase 20 U/L (0-40); Blood Urea Nitrogen 8 mg/dL (6-20); Calcium 8.9 mg/dL (8.5-10.5); Carbon Dioxide 25 mmol/L (22-29); Chloride 102 mmol/L (98-107); Free T4 Free Thyroxine 1.21 ng/dL (0.82-1.77); Globulin 3.6 g/dL (1.3-4.6); Glomerular Filtration Rate 71.1 mL/min (90-130); Glucose 247 mg/dL (65-115); Lactate Dehydrogenase 113 U/L (135-225); Osmolality Calculated 280 mOsm/kg (285-295); Potassium 4.6 mmol/L (3.5-5.1); Sodium 133 mmol/L (136-145); Thyroid Stimulating Hormone 1.04 uIU/mL (0.27-4.20); Total Bilirubin 0.4 mg/dL (0.15-1.2); Total Protein 7.6 g/dL (6.6-8.7)
[2019-09-28 11:40] LABS: BCR ABL1 (IS) 1.116 %; P190 BCR ALB1 Not Detected; P210 BCR ALB1 Detected; Prior Results Not Given
== END 2019-09-18 10:13 | disposition home or self-care (01) ==
PROVIDERS: Absent Provider Internal Medicine; PCP Internal Medicine; Visit Provider Internal Medicine Medical Oncology
DX: E03.9 Hypothyroidism, unspecified (principal); R73.09 Other abnormal glucose; C92.10 Chronic myeloid leukemia, BCR/ABL-positive, not having achieved remission; D72.829 Elevated white blood cell count, unspecified
CPT/HCPCS: 80053; 81206; 83036; 83615; 84439; 84443; 85025

== ENCOUNTER 2019-09-25 15:43 | Outpatient (CLI) | payer MEDICAID, SELFPAY ==
--- NOTE | 2019-09-29 16:51 | ONC FU_ITS ---
Dr. Zamora Patient Follow-Up Note Patient: Pradip Obrien Unit #: [id number]: [id number] Dicatated By: Fabricio Zamora M.D.Date of Visit:Sep 25, 2019 Onc Med Follow-up/Prog Note Chief Complaint: Chronic myeloid leukemia. History of Present Illness: This is a 48 year-old man with suspected chronic myeloid leukemia. He has multiple medical illnesses including obesity, hypertension, hyperlipidemia, and type 2 diabetes. He has not required medication for the diabetes since undergoing a gastric sleeve procedure in 2014. He also has coronary artery disease, and he suffered an acute non-ST elevation myocardial infarction in April 2018. He has been treated medically. He had undergone radioactive iodine ablation for Graves' disease at age 18, and he has had subsequent hypothyroidism. He was treated for pancreatitis in 2012, and he also has a history of gout. He had seen Dr. Singh to establish primary care. His initial laboratory studies, from 04/20/2019, showed significantly elevated white blood cell count at 60,000 with hemoglobin 13.5 g and platelet count 520,000. He then had a repeat CBC here on 04/22/2019. It showed similar findings with hemoglobin 12.6 g, white blood cell count 57,700, and platelet count 467,000. The differential included 33% segs, 26% bands, 15% metamyelocytes, 19% myelocytes, 4% lymphocytes, 1% monocytes, 1% eosinophils, and 1% basophils. I reviewed that blood smear, and it did not appear to show any blasts. A FISH study on 05/01/2019 confirmed the presence of the BCR/abl translocation and 94% of the nuclei counted, consistent with chronic myeloid leukemia. There was a delay in getting treatment started due to insurance issues. He eventually did begin treatment with nilotinib 300 mg twice daily on 06/16/2019. He is seen for a follow-up visit. He has been feeling pretty good generally, though he says he has been more tired than normal. Appetite is not very good. He is eating just 1 meal a day, but his weight is stable. He has not had fever. He is now having just occasional episodes of night sweating. He has had no mouth sores. He sometimes has shortness of breath. He says he always has cough. It is sometimes productive. He says his chest always feels rattly. He recently started using a pro-air inhaler. He has not had chest pain. He has no GI or complaints other than he has noticed that his urine has a different color. He has been having pain occasionally in the upper back between the shoulder blades. He says it feels like a little prick, and it does not last long. He also has some pain through his knuckles. He does not complain of headache or dizziness. He says he has tingling in his feet all the time. Medications: Allopurinol 1 Tablet (of 300 mg) Oral daily, amLODIPine Besylate 1 Tablet (of 10 mg) Oral daily, Clopidogrel Bisulfate 1 Tablet (of 75 mg) Oral daily, Gabapentin 1 Tablet (of 600 mg) Oral t.i.d., Levothyroxine Sodium 1 Tablet (of 200 mcg) Oral daily, Lisinopril 1 Tablet (of 40 mg) Oral daily, Metoprolol Tartrate 1 Tablet (of 50 mg) Oral b.i.d., Multivitamin 1 Tablet Oral daily, Nitroglycerin Tablet, sublingual Sublingual PRN, ProAir HFA 1 Puff(s) (of 108 (90 base) mcg/act) Aerosol, solution Inhalation daily PRN, Sertraline HCl 1 Tablet (of 50 mg) Oral daily, Simvastatin 1 Tablet (of 40 mg) Oral daily Allergies: No Known Allergies. Review of Systems: Constitutional - He has been playing more tired than normal. Appetite is now good. He is eating only 1 meal a day, but his weight is the same. He has not had fever. He now is having just occasional episodes of sweating at night. ECOG score is 1, ENMT - No sinus congestion/drainage. No mouth sores. No sore throat or difficulty swallowing, Hematologic/Lymphatic - No abnormal bruising or bleeding, Respiratory - He has some shortness of breath. No cough. He always has cough. It is sometimes productive. He says his chest always sounds rattly. No pleuritic pain or hemoptysis, Cardiovascular - No angina pain. No palpitations, Gastrointestinal - No nausea or vomiting. No heartburn or acid reflux. No diarrhea or constipation. No blood in the stool or black stools, Genitourinary (M) - No dysuria or hematuria. No urinary frequency. No urgency or incontinence, Musculoskeletal - He has been having some pain in his knuckles. He has no other joint or bone pain, Integumentary - No skin rash, Neurologic - No headache or dizziness. He has tingling in his feet all the time. He has no other focal neurologic symptoms, Psychiatric - No anxiety. He sometimes has depression, but it is adequately managed with his medication. No insomnia. Vital Signs: Performed on Sep 25, 2019 15:49 Height - 65.00 in Weight - 318.0 lbs (HIGH) BSA - 2.41 sq.m BMI - 52.92 (HIGH) Temperature - 98.8 F Pulse - 78 /min Respiration - 24 /min BP - 170/78 mm(hg) (HIGH) O2 Sat - 99 % Pain - 4 Physical Examination: Constitutional - He looks pretty good generally, Eyes - Sclerae nonicteric. Conjunctivae clear, ENMT - No lesions noted in the oral cavity, Hematologic/Lymphatic - No cervical, clavicular, or axillary adenopathy, Respiratory - Lungs are clear with some decrease in air movement bilaterally, Cardiovascular - Heart rhythm is regular. There is no murmur, gallop, or rub noted, Abdomen - Distended. Liver and spleen do not appear enlarged. There is no abdominal mass or ascites noted and there is no inguinal adenopathy, Extremities - No edema, Integumentary - No skin eruption, Neurologic - No focal neurologic deficits noted. Lab/Imaging: Test performed on Sep 18, 2019 10:28 LDH (Total) 113 U/L Sodium 133 mmol/L T4, Free 1.21 ng/dL TSH 1.04 uIU/mL Potassium 4.6 mmol/L Chloride 102 mmol/L CO2 25 mmol/L Anion Gap 10.6 BUN 8 mg/dL Creatinine 1.1 mg/dL Cr Clearance (Est) 164.8000 mL/min eGFR 71.1 mL/min Glucose 247 mg/dL Calcium 8.9 mg/dL Protein, Total 7.6 g/dL Albumin 4.0 g/dL Globulin 3.6 g/dL Bilirubin, Total 0.4 mg/dL ALT (SGPT) 26 U/L AST (SGOT) 20 U/L Alkaline Phosphatase 134 IU/L Hemoglobin A1C % 8.5 % WBC 6.3 10 3/uL RBC 5.24 10 6/uL HGB 13.2 g/dL HCT 43.6 % MCV 83.2 fL MCH 25.2 pg MCHC 30.3 g/dL RDW 15.3 % Platelet Count 186 10 3/cmm MPV 10.5 fL Neutrophils 3.85 10 3/uL Lymphocytes 1.6 10 3/uL Monocytes 0.5 10 3/uL Eosinophils 0.3 10 3/uL Basophils 0.1 10 3/uL Neutrophil % 61.2 % Lymphocyte % 25.9 % Monocyte % 7.1 % Eosinophil % 4.1 % Basophils % 1.4 % NRBC % 0 % Impression: 1. Patient with leukocytosis, predominantly granulocytes with left shift, but without apparent blasts. He also had mildly elevated platelet count. A FISH study on 05/01/2019 confirmed the presence of the BCR/abl translocation and 94% of the nuclei counted, consistent with chronic myeloid leukemia. 2. He had undergone radioactive iodine ablation for Graves' disease at age 18 with subsequent hypothyroidism. His recent TSH level was found to be markedly elevated. His other medical illnesses include: 3. Obesity, for which he underwent a gastric sleeve procedure in 2014. 4. Hypertension. 5. Hyperlipidemia. 6. Type 2 diabetes, not requiring medication since the gastric sleeve procedure. 7. Coronary artery disease with acute non-ST elevation myocardial infarction in April 2018. 8. COPD. 9. He has mild peripheral neuropathy. 10. History of gout. 11. He has a history of pancreatitis in 2012. He began treatment with nilotinib 300 mg bid on 06/16/2019. The result of his 3-month quantitative PCR study is pending, but he has been showing a very good clinical response. He is having some fatigue on the medication. He is also having some mild musculoskeletal pain and other minor symptoms. Overall, he does appear to be tolerating it with acceptable toxicity. His repeat EKG does not show any prolongation of the QT interval. Plan: He will continue nilotinib 300 mg twice daily. As long as he is showing adequate response on his PSR study, I will just plan a follow-up visit in 3 months. In the meantime he will be scheduled for pulmonary function studies for further evaluation of his respiratory symptoms. He will have further evaluation as indicated. Signed By: Fabricio Zamora M.D. <<Signature on File>>
== END 2019-09-25 15:44 | disposition home or self-care (01) ==
LOC: ONCMED 15:45
PROVIDERS: PCP Internal Medicine; Visit Provider Internal Medicine Medical Oncology
DX: C92.10 Chronic myeloid leukemia, BCR/ABL-positive, not having achieved remission (principal); D72.829 Elevated white blood cell count, unspecified; E66.9 Obesity, unspecified; I10 Essential (primary) hypertension; E78.5 Hyperlipidemia, unspecified; E11.9 Type 2 diabetes mellitus without complications; I25.10 Atherosclerotic heart disease of native coronary artery without angina pectoris; J44.9 Chronic obstructive pulmonary disease, unspecified; G62.9 Polyneuropathy, unspecified; M10.9 Gout, unspecified
CPT/HCPCS: 99214

== ENCOUNTER → 2019-10-13 09:54 | Outpatient (BNVA) | payer MEDICAID, SELFPAY | PROVIDERS: PCP Internal Medicine; Visit Provider Internal Medicine | DX: Z20.828 Contact with and (suspected) exposure to other viral communicable diseases (principal) | CPT/HCPCS: 87635 ==

== ENCOUNTER 2019-10-17 06:46 | Outpatient (CLI) | payer MEDICAID, SELFPAY ==
--- NOTE | 2019-10-17 11:26 | PFTS_ITS ---
Date of Study:10/17/19 Date of Dictation: MECHANICS: Forced vital capacity (FVC) is reduced. Forced expiratory volume in one second (FEV1) is reduced. FEV1/FVC is normal. FLOW VOLUME LOOP: Narrow. LUNG VOLUMES: Total lung capacity (TLC) is reduced. Residual volume (RV) is normal. DIFFUSING CAPACITY FOR CARBON MONOXIDE: Normal. INTERPRETATION: The pulmonary function tests are consistent with mild restriction. There is no significant postbronchodilator response. Reduced total lung capacity support the diagnosis of restrictive lung disease. The patient has preserved inspiratory capacity with severely reduced expiratory reserve volume. This is consistent with extrapulmonary restriction likely secondary to obesity. Gas exchange (DLCO) is normal. MTDD
== END 2019-10-17 06:47 | disposition home or self-care (01) ==
LOC: RT 06:47
PROVIDERS: PCP Internal Medicine; Visit Provider Internal Medicine Medical Oncology
DX: R06.02 Shortness of breath (principal)
CPT/HCPCS: 94060; 94726; 94729; J7611

== ENCOUNTER 2019-11-20 10:14 | Outpatient (CLI) | payer OTHER, SELFPAY ==
--- NOTE | 2019-11-20 10:19 | XR_ITS ---
WS: [id number] XR knee RT 1-2V [id number] REASON FOR EXAM: RIGHT KNEE PAIN FINDINGS: Narrowing of the patellofemoral joint space with marginal osteophytes from the patella. The lateral knee joint space is within normal limits. There is moderate narrowing of the medial knee joint space. There is complex subchondral abnormality in the articular medial femoral condyle with an area of lucency and sclerosis. There are marginal ost eophytes from the medial femoral condyle and medial tibial plateau. 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 Changes in the medial knee joint space as above. The abnormalities in the media l femoral condyle are chronic in appearance and likely due to previous osteocho ndral lesion or fracture. Less likely aseptic necrosis. Probably resultant high -grade chondromalacia. No definite acute abnormality identified.
== END 2019-11-20 10:15 | disposition home or self-care (01) ==
LOC: RAD 10:16
PROVIDERS: PCP Internal Medicine; Visit Provider Dermatology
DX: M25.561 Pain in right knee (principal); M22.41 Chondromalacia patellae, right knee; M12.861 Other specific arthropathies, not elsewhere classified, right knee
CPT/HCPCS: 73560

== ENCOUNTER 2020-01-24 14:27 | Outpatient (CLI) | payer MEDICAID, SELFPAY ==
[2020-01-24 15:21] LABS: Basophils # 0.1 10^3/uL (0.0-0.1); Basophils % 1.2 %; Eosinophils # 0.3 10^3/uL (0.0-0.8); Eosinophils % 3.2 %; Hematocrit 39.6 % (42.0-52.0); Hemoglobin 12.8 g/dL (11.7-16.6); Lymphocytes # 2.5 10^3/uL (0.8-4.8); Lymphocytes % 25.8 %; Mean Corpuscular HGB Conc 32.3 g/dL (30.0-36.0); Mean Corpuscular Hemoglobin 26.8 pg (28.0-34.0); Mean Platelet Volume 10.6 fL (7.4-10.4); Monocytes # 0.6 10^3/uL (0.2-0.9); Monocytes % 5.9 %; Neutrophils # 6.02 10^3/uL (1.8-7.7); Neutrophils % 63.5 %; Nucleated Red Blood Cells % 0 %; Platelet Count 169 10^3/cmm (130-400); Red Blood Count 4.77 10^6/uL (4.1-5.3); Red Cell Distribution Width 17.9 % (12.1-15.1); White Blood Count 9.5 10^3/uL (4.0-10.0)
[2020-01-24 15:51] LABS: Alanine Aminotransferase 37 U/L (0-41); Albumin Level 3.9 g/dL (3.5-5.2); Alkaline Phosphatase 141 IU/L (40-130); Anion Gap 14.7 (5-19); Aspartate Amino Transferase 27 U/L (0-40); Blood Urea Nitrogen 15 mg/dL (6-20); Calcium 8.9 mg/dL (8.5-10.5); Carbon Dioxide 21 mmol/L (22-29); Chloride 101 mmol/L (98-107); Globulin 3.4 g/dL (1.3-4.6); Glomerular Filtration Rate 64.1 mL/min (90-130); Glucose 231 mg/dL (65-115); Lactate Dehydrogenase 117 U/L (135-225); Osmolality Calculated 282 mOsm/kg (285-295); Potassium 4.7 mmol/L (3.5-5.1); Sodium 132 mmol/L (136-145); Total Bilirubin 0.5 mg/dL (0.15-1.2); Total Protein 7.3 g/dL (6.6-8.7)
--- NOTE | 2020-01-27 13:36 | ONC FU_ITS ---
Dr. Zamora Patient Follow-Up Note Patient: Pradip Obrien Unit #: [id number]: [id number] Dicatated By: Fabricio Zamora M.D.Date of Visit:Jan 24, 2020 Onc Med Follow-up/Prog Note Chief Complaint: Chronic myeloid leukemia. History of Present Illness: This is a 49 year-old man with [place] chromosome positive chronic myeloid leukemia. He had seen Dr. Singh to establish primary care. His initial laboratory studies, from 04/20/2019, showed significantly elevated white blood cell count at 60,000 with hemoglobin 13.5 g and platelet count 520,000. He then had a repeat CBC here on 04/22/2019. It showed similar findings with hemoglobin 12.6 g, white blood cell count 57,700, and platelet count 467,000. The differential included 33% segs, 26% bands, 15% metamyelocytes, 19% myelocytes, 4% lymphocytes, 1% monocytes, 1% eosinophils, and 1% basophils. I reviewed that blood smear, and it did not appear to show any blasts. A FISH study on 05/01/2019 confirmed the presence of the BCR/abl translocation and 94% of the nuclei counted, consistent with chronic myeloid leukemia. There was a delay in getting treatment started due to insurance issues. He eventually did begin treatment with nilotinib 300 mg twice daily on 06/16/2019. His other medical illnesses include obesity, hypertension, hyperlipidemia, and type 2 diabetes. He has not required medication for the diabetes since undergoing a gastric sleeve procedure in 2014. He also has coronary artery disease, and he suffered an acute non-ST elevation myocardial infarction in April 2018. He has been treated medically. He had undergone radioactive iodine ablation for Graves' disease at age 18, and he has had subsequent hypothyroidism. He was treated for pancreatitis in 2012, and he also has a history of gout. INTERIM HISTORY: As of his follow-up visit in September 2019 his quantitative PCR had decreased to 1.116. He continued nilotinib 300 mg twice daily. He is seen for a follow-up visit. He has been feeling pretty good generally. Lately has been somewhat sluggish, but he is able to do light work. His ECOG score is 1. He has good appetite. He has lost some weight. He does not have fever. He indicates that his night sweating had stopped for a while, but it is now back again. He has some sinus drainage and he has cough productive of white sputum. He is short of breath at times. He does not complain of chest pain. He has no GI or complaints. He has pain in his right knee, but that has been going on for a long time. He has neuropathy in his feet, and recently it has been starting in his hands. Medications: Allopurinol 1 Tablet (of 300 mg) Oral daily, amLODIPine Besylate 1 Tablet (of 10 mg) Oral daily, Clopidogrel Bisulfate 1 Tablet (of 75 mg) Oral daily, Gabapentin 1 Tablet (of 600 mg) Oral t.i.d., Levothyroxine Sodium 1 Tablet (of 200 mcg) Oral daily, Lisinopril 1 Tablet (of 40 mg) Oral daily, Metoprolol Tartrate 1 Tablet (of 50 mg) Oral b.i.d., Multivitamin 1 Tablet Oral daily, Nitroglycerin Tablet, sublingual Sublingual PRN, ProAir HFA 1 Puff(s) (of 108 (90 base) mcg/act) Aerosol, solution Inhalation daily PRN, Sertraline HCl 1 Tablet (of 50 mg) Oral daily, Simvastatin 1 Tablet (of 40 mg) Oral daily Allergies: No Known Allergies. Review of Systems: Constitutional - He has been feeling sluggish, but he is able to do light work. His appetite is good. He has lost a little weight. He has not had fever. He is again having night sweating most of the time. ECOG score is 1, ENMT - He has some sinus drainage. No mouth sores. No sore throat or difficulty swallowing, Hematologic/Lymphatic - No abnormal bruising or bleeding, Respiratory - He is short of breath at times. He has cough productive of white sputum. No pleuritic pain or hemoptysis, Cardiovascular - No angina pain. No palpitations, Gastrointestinal - No nausea or vomiting. No heartburn or acid reflux. No diarrhea or constipation. No blood in the stool or black stools, Genitourinary (M) - No dysuria or hematuria. No urinary frequency. No urgency or incontinence, Musculoskeletal - He has pain in his right knee, but that has been going on for a long time, Integumentary - No skin rash, Neurologic - No headache. He occasionally has dizziness. He has neuropathy in his feet, and he says it is now starting in his hands, Psychiatric - He has depression, but is managed adequately with medication. No insomnia. Vital Signs: His weight is 300 pounds. Blood pressure 142/64, pulse 76, respirations 19, temp 97.5 degrees, oxygen saturation 97%. Physical Examination: Constitutional - He looks pretty good generally, Eyes - Sclerae nonicteric. Conjunctivae clear, ENMT - No lesions noted in the oral cavity, Hematologic/Lymphatic - No cervical, clavicular, or axillary adenopathy, Respiratory - Lungs are clear with some decrease in air movement bilaterally, Cardiovascular - Heart rhythm is regular. There is no murmur, gallop, or rub noted, Abdomen - Distended. Liver and spleen do not appear enlarged. There is no abdominal mass or ascites noted and there is no inguinal adenopathy, Extremities - No edema, Neurologic - No focal neurologic deficits noted. Lab/Imaging: Test performed on Jan 24, 2020 15:05 LDH (Total) 117 U/L Sodium 132 mmol/L Potassium 4.7 mmol/L Chloride 101 mmol/L CO2 21 mmol/L Anion Gap 14.7 BUN 15 mg/dL Creatinine 1.2 mg/dL Cr Clearance (Est) 150.2600 mL/min eGFR 64.1 mL/min Glucose 231 mg/dL Osmolality - Calculated 282 mOsm/kg Calcium 8.9 mg/dL Protein, Total 7.3 g/dL Albumin 3.9 g/dL Globulin 3.4 g/dL Bilirubin, Total 0.5 mg/dL ALT (SGPT) 37 U/L AST (SGOT) 27 U/L Alkaline Phosphatase 141 IU/L Test performed on Jan 24, 2020 13:03 WBC 9.5 10 3/uL RBC 4.77 10 6/uL HGB 12.8 g/dL HCT 39.6 % MCV 83.0 fL MCH 26.8 pg MCHC 32.3 g/dL RDW 17.9 % Platelet Count 169 10 3/cmm MPV 10.6 fL Neutrophils 6.02 10 3/uL Lymphocytes 2.5 10 3/uL Monocytes 0.6 10 3/uL Eosinophils 0.3 10 3/uL Basophils 0.1 10 3/uL Neutrophil % 63.5 % Lymphocyte % 25.8 % Monocyte % 5.9 % Eosinophil % 3.2 % Basophils % 1.2 % NRBC % 0 % Impression: 1. Patient with leukocytosis, predominantly granulocytes with left shift, but without apparent blasts. He also had mildly elevated platelet count. A FISH study on 05/01/2019 confirmed the presence of the BCR/abl translocation and 94% of the nuclei counted, consistent with chronic myeloid leukemia. 2. He had undergone radioactive iodine ablation for Graves' disease at age 18 with subsequent hypothyroidism. His recent TSH level was found to be markedly elevated. His other medical illnesses include: 3. Obesity, for which he underwent a gastric sleeve procedure in 2014. 4. Hypertension. 5. Hyperlipidemia. 6. Type 2 diabetes, not requiring medication since the gastric sleeve procedure. 7. Coronary artery disease with acute non-ST elevation myocardial infarction in April 2018. 8. COPD. 9. He has mild peripheral neuropathy. 10. History of gout. 11. He has a history of pancreatitis in 2012. He began treatment with nilotinib 300 mg bid on 06/16/2019. The result of his 3-month quantitative PCR study is pending, but he has been showing a very good clinical response. He is having some fatigue on the medication. He is also having some mild musculoskeletal pain and other minor symptoms. Overall, he does appear to be tolerating it with acceptable toxicity. His repeat EKG did not show any prolongation of the QT interval. As of his follow-up visit in September 2019 his quantitative PCR was down to 1.116 and he continued naloxone of 300 mg twice daily. He has since then been having some fatigue and he has some ongoing problems with neuropathy. However, he does seem to tolerate the nilotinib with no significant adverse effects. His current PCR results are pending.. Plan: If his current quantitative PCR is showing adequate response, he will continue the nilotinib at 300 mg twice daily. I will tentatively plan a follow-up visit in 3 months. Signed By: Fabricio Zamora M.D. <<Signature on File>>
[2020-01-31 14:18] LABS: P210 BCR ALB1 Detected; Prior Results See Report
== END 2020-01-24 14:28 | disposition home or self-care (01) ==
LOC: ONCMED 14:31
PROVIDERS: PCP Internal Medicine; Visit Provider Internal Medicine Medical Oncology
DX: C92.10 Chronic myeloid leukemia, BCR/ABL-positive, not having achieved remission (principal); D72.829 Elevated white blood cell count, unspecified; E03.9 Hypothyroidism, unspecified; E66.9 Obesity, unspecified; E78.5 Hyperlipidemia, unspecified; E11.59 Type 2 diabetes mellitus with other circulatory complications; I25.10 Atherosclerotic heart disease of native coronary artery without angina pectoris; J44.9 Chronic obstructive pulmonary disease, unspecified; E11.42 Type 2 diabetes mellitus with diabetic polyneuropathy; M10.9 Gout, unspecified; Z86.39 Personal history of other endocrine, nutritional and metabolic disease; Z79.899 Other long term (current) drug therapy
CPT/HCPCS: 36415; 80053; 81206; 83615; 85025; 99214

== ENCOUNTER → 2020-01-29 11:04 | Outpatient (BNVA) | payer MEDICAID, SELFPAY | PROVIDERS: PCP Internal Medicine; Referring Provider Internal Medicine; Visit Provider Specialist | DX: R20.0 Anesthesia of skin (principal); R20.2 Paresthesia of skin; G56.22 Lesion of ulnar nerve, left upper limb | CPT/HCPCS: 95910 ==

== ENCOUNTER → 2020-03-06 17:24 | Outpatient (BNVA) | payer MEDICAID, SELFPAY | PROVIDERS: PCP Internal Medicine; Visit Provider Surgery | DX: Z20.822 Contact with and (suspected) exposure to COVID-19 (principal) | CPT/HCPCS: 87635 ==

== ENCOUNTER 2020-03-12 08:19 | Day surgery (SDC) | payer MEDICAID, SELFPAY ==
[2020-03-08 13:39] VITALS: BMI 49.1
[2020-03-12 08:40] VITALS: BP 133/95; PULSE 80; RESP 18; TEMP 36; O2SAT 100
[2020-03-12 08:40] LABS: Glucose Point of Care 130 mg/dL (70-110)
[2020-03-12] MEDS: sodium chloride 0.9% 1,000 ML 30 ML IV (08:44)
--- NOTE | 2020-03-12 08:50 | ANES.PREANE2 ---
Pre-Anesthetic Assessment Pre-Anesthetic Assessment: Height/Weight: Height 1.65 m Weight 133.81 kg Temp Pulse Resp BP Pulse Ox 96.8 F L 80 18 133/95 100 03/12/20 08:40 03/12/20 08:40 03/12/20 08:40 03/12/20 08:40 03/12/20 08:40 Preop Diagnosis: screening colonoscopy Proposed Procedure: Operation Date: 03/12/20 09:30 Proposed Procedures p Colonoscopy 18943 Z12.11(Not Applicable) - Jose Sarkar MD Was Beta Donna taken within 24 hours: N/A Last intake: Intake Last Liquid Date 03/11/20 Last Liquid Time 23:59 Last Solid Date 03/10/20 Last Solid Time 09:00 Social: Social History: Tobacco and No alcohol Exam: Pre-Anes Outpt Exam: alert, oriented x 3 and regular rate & rhythm Airway: Submandibular: WNL Cervical ROM: WNL MP: 2 Dentition: Full Pulmonary: Pulmonary: COPD and Sleep apnea CV/HEM: CV/HEM: CAD, HTN and MS GI: GI: GERD Metabolic: Metabolic: Morbid obesity and Thyroid Musc/skel: Comments: Gout Neuropsych: Neuropsych: Neuropathy Anesthetic Plan: ASA status: 3 Anesthesia: MAC Risk of > 500 ml blood loss (7ml/kg in children): No Meds/Allergies Current Medications: Current Medications Generic Name Dose Route Start Last Admin Trade Name Freq PRN Reason Stop Dose Admin Sodium Chloride 1,000 mls @ 30 ml s/hr 03/12/20 08:15 03/12/20 08:44 Sodium Chloride 0.9% IV 03/13/20 08:14 30 mls/hr .Q24H WILVER Administration PFSH Anesthesia PFSH: Medical History (Updated 02/26/20 @ 10:03 by Jose Sarkar MD) CML (chronic myeloid leukemia) Diabetes Dyslipidemia Gout History of myocardial infarction in adulthood Hypertension Surgical History (Updated 02/26/20 @ 10:00 by Jose Sarkar MD) History of knee surgery History of laparoscopic cholecystectomy S/P laparoscopic sleeve gastrectomy Family History (Updated 02/26/20 @ 09:55 by Emily Spivey RN) Family/Other Cancer colon cancer Denies family history of Anesthesia complication Bleeding disorder Data Anesthesia Other Labs: Laboratory Results - last 48 hr 03/12/20 08:38 POC Glucose 130 H Cardiac Studies: No Data to Display
--- NOTE | 2020-03-12 09:48 | W.PM.OPSUD ---
Surgery/Procedure H&P Update DATE OF PROCEDURE: March 12, 2020 DATE H&P PERFORMED: 02/26/20 H&P UPDATE INFORMATION: I have reviewed H&P completed within last 30 days, I have examined patient prior to procedure and No changes to prior documentation PREOP DIAGNOSIS: screening colonoscopy PLANNED PROCEDURE: Operation Date: 03/12/20 09:30 Proposed Procedures p Colonoscopy 29739 Z12.11(Not Applicable) - Jose Sarkar MD
[2020-03-12 10:16] VITALS: BP 129/69; PULSE 61; RESP 16; TEMP 36.8; O2SAT 98
[2020-03-12 10:30] VITALS: BP 126/85; PULSE 71; RESP 16; O2SAT 98
--- NOTE | 2020-03-12 11:02 | ANE.PACU2 ---
Inpatient post-anesthesia follow up: Airway intact: Yes Vital signs: Temperature 98.2 F Pulse Rate 71 Respiratory Rate 16 Blood Pressure 126/85 Pulse Oximetry 98 Oxygen Delivery Me thod Room Air Oxygen Flow Rate Fraction of Inspir ed Oxygen Hydration adequate: Yes Mental status: Baseline
--- NOTE | 2020-03-12 13:30 | ANE.PACU2 ---
Inpatient post-anesthesia follow up: Airway intact: Yes Vital signs: Temperature 98.2 F Pulse Rate 71 Respiratory Rate 16 Blood Pressure 126/85 Pulse Oximetry 98 Oxygen Delivery Me thod Room Air Oxygen Flow Rate Fraction of Inspir ed Oxygen Hydration adequate: Yes Nausea and vomiting: No Pain level: 1 Mental status: Baseline
== END 2020-03-12 10:46 | disposition home or self-care (01) ==
PROVIDERS: PCP Internal Medicine; Visit Provider Surgery
PROC: 0DJD8ZZ Inspection of Lower Intestinal Tract, Via Natural or Artificial Opening Endoscopic (ICD-10-PCS; CPT 45378; principal; 2020-03-12 09:30)
DX: Z12.11 Encounter for screening for malignant neoplasm of colon (principal); Z79.84 Long term (current) use of oral hypoglycemic drugs; E78.5 Hyperlipidemia, unspecified; I10 Essential (primary) hypertension; I25.2 Old myocardial infarction; K64.8 Other hemorrhoids; D12.5 Benign neoplasm of sigmoid colon; J44.9 Chronic obstructive pulmonary disease, unspecified; G47.30 Sleep apnea, unspecified; I25.10 Atherosclerotic heart disease of native coronary artery without angina pectoris; K21.9 Gastro-esophageal reflux disease without esophagitis; E66.01 Morbid (severe) obesity due to excess calories; Z68.42 Body mass index [BMI] 45.0-49.9, adult; E11.40 Type 2 diabetes mellitus with diabetic neuropathy, unspecified
CPT/HCPCS: 12345; 36416; 45380; 82962; 88305; J2704; J7030

== ENCOUNTER 2020-04-23 13:35 | Outpatient (CLI) | payer MEDICAID, SELFPAY ==
[2020-04-23 14:32] LABS: Basophils # 0.1 10^3/uL (0.0-0.1); Eosinophils # 0.3 10^3/uL (0.0-0.8); Eosinophils % 3.7 %; Hematocrit 38.6 % (42.0-52.0); Hemoglobin 12.1 g/dL (11.7-16.6); Mean Corpuscular HGB Conc 31.3 g/dL (30.0-36.0); Mean Corpuscular Hemoglobin 28.5 pg (28.0-34.0); Mean Corpuscular Volume 90.8 fL (80-94); Mean Platelet Volume 10.4 fL (7.4-10.4); Monocytes # 0.5 10^3/uL (0.2-0.9); Monocytes % 5.2 %; Neutrophils # 5.83 10^3/uL (1.8-7.7); Neutrophils % 66.1 %; Nucleated Red Blood Cells % 0 %; Platelet Count 191 10^3/cmm (130-400); Red Blood Count 4.25 10^6/uL (4.1-5.3); Red Cell Distribution Width 16.5 % (12.1-15.1); White Blood Count 8.8 10^3/uL (4.0-10.0)
[2020-04-23 14:58] LABS: Alanine Aminotransferase 20 U/L (0-41); Albumin Level 3.8 g/dL (3.5-5.2); Alkaline Phosphatase 125 IU/L (40-130); Anion Gap 13.5 (5-19); Aspartate Amino Transferase 19 U/L (0-40); Blood Urea Nitrogen 10 mg/dL (6-20); Calcium 9.1 mg/dL (8.5-10.5); Carbon Dioxide 22 mmol/L (22-29); Chloride 103 mmol/L (98-107); Globulin 3.4 g/dL (1.3-4.6); Glomerular Filtration Rate 79.1 mL/min (90-130); Glucose 287 mg/dL (65-115); Lactate Dehydrogenase 119 U/L (135-225); Osmolality Calculated 288 mOsm/kg (285-295); Potassium 4.5 mmol/L (3.5-5.1); Sodium 134 mmol/L (136-145); Total Bilirubin 0.5 mg/dL (0.15-1.2); Total Protein 7.2 g/dL (6.6-8.7)
--- NOTE | 2020-04-24 07:01 | ONC FU_ITS ---
Dr. Zamora Patient Follow-Up Note Patient: Pradip Obrien Unit #: [id number]: [id number] Dicatated By: Fabricio Zamora M.D.Date of Visit:Apr 23, 2020 Onc Med Follow-up/Prog Note Chief Complaint: Chronic myeloid leukemia. History of Present Illness: This is a 49 year-old man with [place] chromosome positive chronic myeloid leukemia. He had seen Dr. Singh to establish primary care. His initial laboratory studies, from 04/20/2019, showed significantly elevated white blood cell count at 60,000 with hemoglobin 13.5 g and platelet count 520,000. He then had a repeat CBC here on 04/22/2019. It showed similar findings with hemoglobin 12.6 g, white blood cell count 57,700, and platelet count 467,000. The differential included 33% segs, 26% bands, 15% metamyelocytes, 19% myelocytes, 4% lymphocytes, 1% monocytes, 1% eosinophils, and 1% basophils. I reviewed that blood smear, and it did not appear to show any blasts. A FISH study on 05/01/2019 confirmed the presence of the BCR/abl translocation and 94% of the nuclei counted, consistent with chronic myeloid leukemia. There was a delay in getting treatment started due to insurance issues. He eventually did begin treatment with nilotinib 300 mg twice daily on 06/16/2019. His other medical illnesses include obesity, hypertension, hyperlipidemia, and type 2 diabetes. He has not required medication for the diabetes since undergoing a gastric sleeve procedure in 2014. He also has coronary artery disease, and he suffered an acute non-ST elevation myocardial infarction in April 2018. He has been treated medically. He had undergone radioactive iodine ablation for Graves' disease at age 18, and he has had subsequent hypothyroidism. He was treated for pancreatitis in 2012, and he also has a history of gout. INTERIM HISTORY: As of his follow-up visit in September 2019 his quantitative PCR had decreased to 1.116, and as of 01/24/2020 it had further decreased to 0.030%. He continued nilotinib 300 mg twice daily. He is seen for a follow-up visit. He has been feeling pretty good generally, though he does tire easily. ECOG score is 1. He has good appetite. He has not had fever. He does have pretty heavy night sweating at least 2 or 3 times a week. He has some shortness of breath with activity. He reports having nonproductive cough. He does not complain of chest pain. He has no GI or complaints. He does have some joint pain, but not bad. He has occasional sinus headache. He has peripheral neuropathy with numbness in both feet. Medications: Allopurinol 1 Tablet (of 300 mg) Oral daily, amLODIPine Besylate 1 Tablet (of 10 mg) Oral daily, Clopidogrel Bisulfate 1 Tablet (of 75 mg) Oral daily, Gabapentin 1 Tablet (of 600 mg) Oral t.i.d., Levothyroxine Sodium 1 Tablet (of 200 mcg) Oral daily, Lisinopril 1 Tablet (of 40 mg) Oral daily, Metoprolol Tartrate 1 Tablet (of 50 mg) Oral b.i.d., Multivitamin 1 Tablet Oral daily, Nitroglycerin Tablet, sublingual Sublingual PRN, ProAir HFA 1 Puff(s) (of 108 (90 base) mcg/act) Aerosol, solution Inhalation daily PRN, Sertraline HCl 1 Tablet (of 50 mg) Oral daily, Simvastatin 1 Tablet (of 40 mg) Oral daily Allergies: No Known Allergies. Vital Signs: Performed on Apr 23, 2020 15:22 Height - 65.00 in Weight - 303.4 lbs (LOW) BSA - 2.36 sq.m BMI - 50.49 (HIGH) Temperature - 96.6 F (LOW) Pulse - 83 /min Respiration - 18 /min BP - 129/75 mm(hg) O2 Sat - 97 % Pain - 0 Fatigue - 0 Physical Examination: Constitutional - He looks pretty good generally, Eyes - Sclerae nonicteric. Conjunctivae clear, ENMT - No lesions noted in the oral cavity, Hematologic/Lymphatic - No cervical, clavicular, or axillary adenopathy, Respiratory - Lungs are clear with some decrease in air movement bilaterally, Cardiovascular - Heart rhythm is regular. There is no murmur, gallop, or rub noted, Abdomen - Distended. Liver and spleen do not appear enlarged. There is no abdominal mass or ascites noted and there is no inguinal adenopathy, Extremities - No edema, Neurologic - No focal neurologic deficits noted. Lab/Imaging: Test performed on Apr 23, 2020 14:15 LDH (Total) 119 U/L Sodium 134 mmol/L Potassium 4.5 mmol/L Chloride 103 mmol/L CO2 22 mmol/L Anion Gap 13.5 BUN 10 mg/dL Creatinine 1.0 mg/dL Cr Clearance (Est) 180.3100 mL/min eGFR 79.1 mL/min Glucose 287 mg/dL Osmolality - Calculated 288 mOsm/kg Calcium 9.1 mg/dL Protein, Total 7.2 g/dL Albumin 3.8 g/dL Globulin 3.4 g/dL Bilirubin, Total 0.5 mg/dL ALT (SGPT) 20 U/L AST (SGOT) 19 U/L Alkaline Phosphatase 125 IU/L WBC 8.8 10 3/uL RBC 4.25 10 6/uL HGB 12.1 g/dL HCT 38.6 % MCV 90.8 fL MCH 28.5 pg MCHC 31.3 g/dL RDW 16.5 % Platelet Count 191 10 3/cmm MPV 10.4 fL Neutrophils 5.83 10 3/uL Lymphocytes 2.0 10 3/uL Monocytes 0.5 10 3/uL Eosinophils 0.3 10 3/uL Basophils 0.1 10 3/uL Neutrophil % 66.1 % Lymphocyte % 23.0 % Monocyte % 5.2 % Eosinophil % 3.7 % Basophils % 1.0 % NRBC % 0 % Problem List: 1. [place] chromosome positive chronic myeloid leukemia, initially diagnosed in April 2019. 2. He has a history of having undergone radioactive iodine ablation for Graves' disease at age 18 with subsequent hypothyroidism. 3. Obesity, for which he underwent a gastric sleeve procedure in 2014. 4. Hypertension. 5. Hyperlipidemia. 6. Type 2 diabetes, not requiring medication since the gastric sleeve procedure. 7. Coronary artery disease with acute non-ST elevation myocardial infarction in April 2018. 8. COPD. 9. He has mild peripheral neuropathy. 10. History of gout. 11. He has a history of pancreatitis in 2013. Problems Addressed with this Encounter and Plan: Patient with [place] chromosome positive chronic myeloid leukemia, initially diagnosed in April 2019. He began treatment with nilotinib 300 mg bid on 06/16/2019. He has had some fatigue on the medication and he has had mild musculoskeletal pain. Overall, though, he has tolerated it well, and has been showing a very good response by PCR. As of January 2020, the quantitative PCR was down to 0.030%. His current quantitative PCR is pending. In the absence of any evidence of disease progression, he will continue the nilotinib at 300 mg twice daily. He will be scheduled for a follow-up visit in 3 months. Signed By: Fabricio Zamora M.D. <<Signature on File>>
[2020-04-27 23:07] LABS: P190 BCR ALB1 NOT DETECTED; P210 BCR ALB1 NOT DETECTED; Prior Results NG; Source blood
== END 2020-04-23 13:36 | disposition home or self-care (01) ==
LOC: ONCMED 13:38
PROVIDERS: PCP Internal Medicine; Visit Provider Internal Medicine Medical Oncology
DX: C92.10 Chronic myeloid leukemia, BCR/ABL-positive, not having achieved remission (principal); R53.83 Other fatigue; M79.10 Myalgia, unspecified site; T45.1X5A Adverse effect of antineoplastic and immunosuppressive drugs, initial encounter; Z79.899 Other long term (current) drug therapy; E78.5 Hyperlipidemia, unspecified; I10 Essential (primary) hypertension; E11.42 Type 2 diabetes mellitus with diabetic polyneuropathy; I25.10 Atherosclerotic heart disease of native coronary artery without angina pectoris; I25.2 Old myocardial infarction; Z86.39 Personal history of other endocrine, nutritional and metabolic disease; E89.0 Postprocedural hypothyroidism
CPT/HCPCS: 36415; 80053; 81206; 83615; 85025; 99214

== ENCOUNTER 2020-08-05 12:24 | Outpatient (CLI) | payer MEDICAID, SELFPAY ==
[2020-08-05 13:09] LABS: Basophils # 0.1 10^3/uL (0.0-0.1); Basophils % 1.2 %; Eosinophils # 0.4 10^3/uL (0.0-0.8); Eosinophils % 3.9 %; Hematocrit 40.2 % (42.0-52.0); Hemoglobin 12.5 g/dL (11.7-16.6); Lymphocytes # 2.1 10^3/uL (0.8-4.8); Lymphocytes % 22.3 %; Mean Corpuscular HGB Conc 31.1 g/dL (30.0-36.0); Mean Corpuscular Hemoglobin 28.2 pg (28.0-34.0); Mean Corpuscular Volume 90.7 fL (80-94); Mean Platelet Volume 10.1 fL (7.4-10.4); Monocytes # 0.5 10^3/uL (0.2-0.9); Monocytes % 5.2 %; Neutrophils # 6.31 10^3/uL (1.8-7.7); Neutrophils % 66.8 %; Nucleated Red Blood Cells % 0 %; Platelet Count 222 10^3/cmm (130-400); Red Blood Count 4.43 10^6/uL (4.1-5.3); Red Cell Distribution Width 15.4 % (12.1-15.1); White Blood Count 9.5 10^3/uL (4.0-10.0)
[2020-08-05 13:36] LABS: Alanine Aminotransferase 22 U/L (0-41); Albumin Level 3.9 g/dL (3.5-5.2); Alkaline Phosphatase 115 IU/L (40-130); Anion Gap 15.6 (5-19); Aspartate Amino Transferase 22 U/L (0-40); Blood Urea Nitrogen 16 mg/dL (6-20); Carbon Dioxide 19 mmol/L (22-29); Chloride 107 mmol/L (98-107); Globulin 3.6 g/dL (1.3-4.6); Glomerular Filtration Rate 58.4 mL/min (90-130); Glucose 180 mg/dL (65-115); Lactate Dehydrogenase 121 U/L (135-225); Osmolality Calculated 290 mOsm/kg (285-295); Potassium 4.6 mmol/L (3.5-5.1); Sodium 137 mmol/L (136-145); Total Bilirubin 0.4 mg/dL (0.15-1.2); Total Protein 7.5 g/dL (6.6-8.7)
[2020-08-05 14:40] LABS: Lipase 96 U/L (13-60)
--- NOTE | 2020-08-09 10:42 | ONC FU_ITS ---
Dr. Zamora Patient Follow-Up Note Patient: Pradip Obrien Unit #: [id number]: 1970 Dicatated By: Fabricio Zamora M.D.Date of Visit:Aug 05, 2020 Onc Med Follow-up/Prog Note Chief Complaint: Chronic myeloid leukemia. History of Present Illness: This is a 49 year-old man with [place] chromosome positive chronic myeloid leukemia. He had seen Dr. Singh to establish primary care. His initial laboratory studies, from 04/20/2019, showed significantly elevated white blood cell count at 60,000 with hemoglobin 13.5 g and platelet count 520,000. He then had a repeat CBC here on 04/22/2019. It showed similar findings with hemoglobin 12.6 g, white blood cell count 57,700, and platelet count 467,000. The differential included 33% segs, 26% bands, 15% metamyelocytes, 19% myelocytes, 4% lymphocytes, 1% monocytes, 1% eosinophils, and 1% basophils. I reviewed that blood smear, and it did not appear to show any blasts. A FISH study on 05/01/2019 confirmed the presence of the BCR/abl translocation and 94% of the nuclei counted, consistent with chronic myeloid leukemia. There was a delay in getting treatment started due to insurance issues. He eventually did begin treatment with nilotinib 300 mg twice daily on 06/16/2019. His other medical illnesses include obesity, hypertension, hyperlipidemia, and type 2 diabetes. He has not required medication for the diabetes since undergoing a gastric sleeve procedure in 2014. He also has coronary artery disease, and he suffered an acute non-ST elevation myocardial infarction in April 2018. He has been treated medically. He had undergone radioactive iodine ablation for Graves' disease at age 18, and he has had subsequent hypothyroidism. He was treated for pancreatitis in 2012, and he also has a history of gout. INTERIM HISTORY: As of his follow-up visit in September 2019 his quantitative PCR had decreased to 1.116, and as of 01/24/2020 it had further decreased to 0.030%. As of 04/23/2020 it had become undetectable. He continued nilotinib 300 mg twice daily. He is seen for a follow-up visit. He has been feeling pretty good generally, though he says he does feel a little tired. ECOG score is 1. Appetite has not been very good. He eats only 1 meal a day, and he has been losing weight. He has not had fever. He occasionally has sweating at night. He does report having some sinus drainage and cough. He is sometimes short of breath. He uses his inhaler as needed. He does not complain of chest pain. He has been having some postprandial nausea and he has occasional acid reflux. His stools are always runny, but that is chronic. He has no complaints. He has no significant joint or bone pain. He does not complain of headache. He has some difficulty with balance, and he has numbness/tingling in his feet. Medications: Allopurinol 1 Tablet (of 300 mg) Oral daily, amLODIPine Besylate 1 Tablet (of 10 mg) Oral daily, Clopidogrel Bisulfate 1 Tablet (of 75 mg) Oral daily, Gabapentin 1 Tablet (of 600 mg) Oral t.i.d., Levothyroxine Sodium 1 Tablet (of 200 mcg) Oral daily, Lisinopril 1 Tablet (of 40 mg) Oral daily, Metoprolol Tartrate 1 Tablet (of 50 mg) Oral b.i.d., Multivitamin 1 Tablet Oral daily, Nitroglycerin Tablet, sublingual Sublingual PRN, ProAir HFA 1 Puff(s) (of 108 (90 base) mcg/act) Aerosol, solution Inhalation daily PRN, Sertraline HCl 1 Tablet (of 50 mg) Oral daily, Simvastatin 1 Tablet (of 40 mg) Oral daily, Victoza (18 mg/3mL) Subcutaneous daily Allergies: No Known Allergies. Vital Signs: Performed on Aug 05, 2020 14:08 Height - 65.00 in Weight - 289.2 lbs (LOW) BSA - 2.31 sq.m BMI - 48.13 (HIGH) Temperature - 97.0 F (LOW) Pulse - 83 /min Respiration - 18 /min BP - 128/77 mm(hg) O2 Sat - 98 % Pain - 0 Fatigue - 7 Physical Examination: Constitutional - He looks pretty good generally, Eyes - Sclerae nonicteric. Conjunctivae clear, ENMT - No lesions noted in the oral cavity, Hematologic/Lymphatic - No cervical, clavicular, or axillary adenopathy, Respiratory - Lungs sound clear, Cardiovascular - Heart rhythm is regular. There is a II/ systolic murmur. There is no gallop or rub noted, Abdomen - Distended. Liver and spleen do not appear enlarged. There is no abdominal mass or ascites noted and there is no inguinal adenopathy, Extremities - No edema, Neurologic - No focal neurologic deficits noted. Lab/Imaging: Test performed on Aug 05, 2020 14:21 Lipase 96 U/L Test performed on Aug 05, 2020 12:50 LDH (Total) 121 U/L Sodium 137 mmol/L Potassium 4.6 mmol/L Chloride 107 mmol/L CO2 19 mmol/L Anion Gap 15.6 BUN 16 mg/dL Creatinine 1.3 mg/dL Cr Clearance (Est) 126.14 mL/min eGFR 58.4 mL/min Glucose 180 mg/dL Osmolality - Calculated 290 mOsm/kg Calcium 9.0 mg/dL Protein, Total 7.5 g/dL Albumin 3.9 g/dL Globulin 3.6 g/dL Bilirubin, Total 0.4 mg/dL ALT (SGPT) 22 U/L AST (SGOT) 22 U/L Alkaline Phosphatase 115 IU/L WBC 9.5 10 3/uL RBC 4.43 10 6/uL HGB 12.5 g/dL HCT 40.2 % MCV 90.7 fL MCH 28.2 pg MCHC 31.1 g/dL RDW 15.4 % Platelet Count 222 10 3/cmm MPV 10.1 fL Neutrophils 6.31 10 3/uL Lymphocytes 2.1 10 3/uL Monocytes 0.5 10 3/uL Eosinophils 0.4 10 3/uL Basophils 0.1 10 3/uL Neutrophil % 66.8 % Lymphocyte % 22.3 % Monocyte % 5.2 % Eosinophil % 3.9 % Basophils % 1.2 % NRBC % 0 % Problem List: 1. [place] chromosome positive chronic myeloid leukemia, initially diagnosed in April 2019. 2. He has a history of having undergone radioactive iodine ablation for Graves' disease at age 18 with subsequent hypothyroidism. 3. Obesity, for which he underwent a gastric sleeve procedure in 2014. 4. Hypertension. 5. Hyperlipidemia. 6. Type 2 diabetes, not requiring medication since the gastric sleeve procedure. 7. Coronary artery disease with acute non-ST elevation myocardial infarction in April 2018. 8. COPD. 9. He has mild peripheral neuropathy. 10. History of gout. 11. He has a history of pancreatitis in 2013. Problems Addressed with this Encounter and Plan: Patient with [place] chromosome positive chronic myeloid leukemia, initially diagnosed in April 2019. He began treatment with nilotinib 300 mg bid on 06/16/2019. He had a very good response, as during followup there was a consistent decline in the quantitative PCR for BCR/abl. As of April 2020 the quantitative PCR had become undetectable. Overall, he has tolerated the meloxicam pretty well, though he has reported some fatigue with the medication and he also at times has reported some musculoskeletal pain. More recently, he has been having postprandial nausea, and he has been losing weight. His serum lipase is mildly elevated, consistent with some treatment related pancreatitis. His current quantitative PCR is pending. If it remains undetectable, I will reduce the dosage of the naloxone him to 150 mg twice daily. I will tentatively plan a follow-up visit in 3 months. Signed By: Fabricio Zamora M.D. <<Signature on File>>
[2020-08-09 22:57] LABS: P190 BCR ALB1 NOT DETECTED; P210 BCR ALB1 NOT DETECTED; Prior Results NG; Source V
== END 2020-08-05 12:25 | disposition home or self-care (01) ==
PROVIDERS: PCP Internal Medicine; Visit Provider Internal Medicine Medical Oncology
DX: C91.10 Chronic lymphocytic leukemia of B-cell type not having achieved remission (principal); E03.9 Hypothyroidism, unspecified; E66.9 Obesity, unspecified; I10 Essential (primary) hypertension; E78.5 Hyperlipidemia, unspecified; E11.59 Type 2 diabetes mellitus with other circulatory complications; I25.10 Atherosclerotic heart disease of native coronary artery without angina pectoris; I25.2 Old myocardial infarction; J44.9 Chronic obstructive pulmonary disease, unspecified; E11.42 Type 2 diabetes mellitus with diabetic polyneuropathy; M10.9 Gout, unspecified; Z86.39 Personal history of other endocrine, nutritional and metabolic disease; Z79.899 Other long term (current) drug therapy; Z92.21 Personal history of antineoplastic chemotherapy
CPT/HCPCS: 36415; 80053; 81206; 83615; 83690; 85025; 99214

== ENCOUNTER 2020-11-11 11:01 | Outpatient (CLI) | payer MEDICAID, SELFPAY ==
[2020-11-11 11:35] LABS: Basophils # 0.1 10^3/uL (0.0-0.1); Basophils % 1.5 %; Eosinophils # 0.4 10^3/uL (0.0-0.8); Eosinophils % 4.9 %; Hematocrit 40.6 % (42.0-52.0); Hemoglobin 12.5 g/dL (11.7-16.6); Lymphocytes # 2.7 10^3/uL (0.8-4.8); Lymphocytes % 31.5 %; Mean Corpuscular HGB Conc 30.8 g/dL (30.0-36.0); Mean Corpuscular Hemoglobin 28.3 pg (28.0-34.0); Mean Corpuscular Volume 91.9 fl (80-94); Mean Platelet Volume 9.7 fL (7.4-10.4); Monocytes # 0.5 10^3/uL (0.2-0.9); Monocytes % 6.1 %; Neutrophils # 4.65 10^3/uL (1.8-7.7); Neutrophils % 55.4 %; Nucleated Red Blood Cells % 0 %; Platelet Count 245 10^3/cmm (130-400); Red Blood Count 4.42 10^6/uL (4.1-5.3); Red Cell Distribution Width 17.4 % (12.1-15.1); White Blood Count 8.4 10^3/uL (4.0-10.0)
[2020-11-11 11:52] LABS: Alanine Aminotransferase 15 U/L (0-41); Albumin Level 3.9 g/dL (3.5-5.2); Alkaline Phosphatase 105 IU/L (40-130); Anion Gap 16.2 (5-19); Aspartate Amino Transferase 16 U/L (0-40); Blood Urea Nitrogen 30 mg/dL (6-20); Calcium 9.3 mg/dL (8.5-10.5); Carbon Dioxide 15 mmol/L (22-29); Chloride 109 mmol/L (98-107); Globulin 3.8 g/dL (1.3-4.6); Glucose 145 mg/dL (65-115); Osmolality Calculated 289 mOsm/kg (285-295); Potassium 5.2 mmol/L (3.5-5.1); Sodium 135 mmol/L (136-145); Total Bilirubin 0.2 mg/dL (0.15-1.2); Total Protein 7.7 g/dL (6.6-8.7)
--- NOTE | 2020-11-11 16:55 | ONC FU_ITS ---
Dr. Zamora Patient Follow-Up Note Patient: Pradip Obrien Unit #: [id number]: 1970 Dicatated By: Fabricio Zamora M.D.Date of Visit:Nov 11, 2020 Onc Med Follow-up/Prog Note Chief Complaint: Chronic myeloid leukemia. History of Present Illness: This is a 49 year-old man with [place] chromosome positive chronic myeloid leukemia. He had seen Dr. Singh to establish primary care. His initial laboratory studies, from 04/20/2019, showed significantly elevated white blood cell count at 60,000 with hemoglobin 13.5 g and platelet count 520,000. He then had a repeat CBC here on 04/22/2019. It showed similar findings with hemoglobin 12.6 g, white blood cell count 57,700, and platelet count 467,000. The differential included 33% segs, 26% bands, 15% metamyelocytes, 19% myelocytes, 4% lymphocytes, 1% monocytes, 1% eosinophils, and 1% basophils. I reviewed that blood smear, and it did not appear to show any blasts. A FISH study on 05/01/2019 confirmed the presence of the BCR/abl translocation and 94% of the nuclei counted, consistent with chronic myeloid leukemia. There was a delay in getting treatment started due to insurance issues. He eventually did begin treatment with nilotinib 300 mg twice daily on 06/16/2019. During follow-up there was a continued gradual decline in the quantitative PCR for BCR/abl. As of 04/23/2020 it had become undetectable. At that point he continued meloxicam 300 mg twice daily. His other medical illnesses include obesity, hypertension, hyperlipidemia, and type 2 diabetes. He has not required medication for the diabetes since undergoing a gastric sleeve procedure in 2014. He also has coronary artery disease, and he suffered an acute non-ST elevation myocardial infarction in April 2018. He has been treated medically. He had undergone radioactive iodine ablation for Graves' disease at age 18, and he has had subsequent hypothyroidism. He was treated for pancreatitis in 2012, and he also has a history of gout. INTERIM HISTORY: At his follow-up visit on 08/05/2020 he had complained of increased fatigue, and he was also experiencing anorexia and weight loss. His quantitative PCR remained undetectable. I opted to reduce the Dilaudid him dosage to 150 mg twice daily. He is seen for a follow-up visit. He continues to complain that he is tired all the time. He is still doing light work. His ECOG score is 1. Appetite remains poor. He says he eats 1 meal a day. He has continued to lose weight. By our scale he is down another 9 pounds since July. He has not had fever. He has a little night sweating once or twice a week. Recently he has been having pain in his right lower leg/ankle. He says it feels like a hot poker. It comes and goes. It is not associated with activity. He also has been having some pain in the upper back between the shoulder blades. He has not had sore mouth or throat. He is sometimes short of breath. He is using a ProAir inhaler twice a day. He has nonproductive cough. He does not complain of chest pain. He has been having nausea when he eats. He has no acid reflux symptoms. He has no complaints with bowel or bladder function. He does not complain of headache. He does have some orthostatic lightheadedness. He has numbness in his feet. Medications: Allopurinol 1 Tablet (of 300 mg) Oral daily, amLODIPine Besylate 1 Tablet (of 10 mg) Oral daily, Clopidogrel Bisulfate 1 Tablet (of 75 mg) Oral daily, Gabapentin 1 Tablet (of 600 mg) Oral t.i.d., Levothyroxine Sodium 1 Tablet (of 200 mcg) Oral daily, Lisinopril 1 Tablet (of 40 mg) Oral daily, Metoprolol Tartrate 1 Tablet (of 50 mg) Oral b.i.d., Multivitamin 1 Tablet Oral daily, Nitroglycerin Tablet, sublingual Sublingual PRN, ProAir HFA 1 Puff(s) (of 108 (90 base) mcg/act) Aerosol, solution Inhalation daily PRN, Sertraline HCl 1 Tablet (of 50 mg) Oral daily, Simvastatin 1 Tablet (of 40 mg) Oral daily, Victoza (18 mg/3mL) Subcutaneous daily Allergies: No Known Allergies. Vital Signs: Performed on Nov 11, 2020 16:19 Height - 65.00 in Weight - 280 lbs (LOW) BSA - 2.28 sq.m BMI - 46.59 (HIGH) Temperature - 96.8 F (LOW) Pulse - 75 /min Respiration - 18 /min BP - 98/63 mm(hg) O2 Sat - 99 % Pain - 0 Fatigue - 7 Physical Examination: Constitutional - He looks pretty good generally, Eyes - Sclerae nonicteric. Conjunctivae clear, ENMT - No lesions noted in the oral cavity, Hematologic/Lymphatic - No cervical, clavicular, or axillary adenopathy, Respiratory - Lungs sound clear, Cardiovascular - Heart rhythm is regular. There is a II/ systolic murmur. There is no gallop or rub noted, Abdomen - Distended. Liver and spleen do not appear enlarged. There is no abdominal mass or ascites noted and there is no inguinal adenopathy, Extremities - No edema. He has good dorsalis pedis pulses bilaterally, Neurologic - No focal neurologic deficits noted. Lab/Imaging: Test performed on Nov 11, 2020 11:20 Sodium 135 mmol/L Potassium 5.2 mmol/L Chloride 109 mmol/L CO2 15 mmol/L Anion Gap 16.2 BUN 30 mg/dL Creatinine 1.6 mg/dL Cr Clearance (Est) 99.23 mL/min eGFR 46.0 mL/min Glucose 145 mg/dL Osmolality - Calculated 289 mOsm/kg Calcium 9.3 mg/dL Protein, Total 7.7 g/dL Albumin 3.9 g/dL Globulin 3.8 g/dL Bilirubin, Total 0.2 mg/dL ALT (SGPT) 15 U/L AST (SGOT) 16 U/L Alkaline Phosphatase 105 IU/L WBC 8.4 10 3/uL RBC 4.42 10 6/uL HGB 12.5 g/dL HCT 40.6 % MCV 91.9 fl MCH 28.3 pg MCHC 30.8 g/dL RDW 17.4 % Platelet Count 245 10 3/cmm MPV 9.7 fL Neutrophils 4.65 10 3/uL Lymphocytes 2.7 10 3/uL Monocytes 0.5 10 3/uL Eosinophils 0.4 10 3/uL Basophils 0.1 10 3/uL Neutrophil % 55.4 % Lymphocyte % 31.5 % Monocyte % 6.1 % Eosinophil % 4.9 % Basophils % 1.5 % NRBC % 0 % Problem List: 1. [place] chromosome positive chronic myeloid leukemia, initially diagnosed in April 2019. 2. He has a history of having undergone radioactive iodine ablation for Graves' disease at age 18 with subsequent hypothyroidism. 3. Obesity, for which he underwent a gastric sleeve procedure in 2014. 4. Hypertension. 5. Hyperlipidemia. 6. Type 2 diabetes, not requiring medication since the gastric sleeve procedure. 7. Coronary artery disease with acute non-ST elevation myocardial infarction in April 2018. 8. COPD. 9. He has mild peripheral neuropathy. 10. History of gout. 11. He has a history of pancreatitis in 2012. Problems Addressed with this Encounter and Plan: Patient with [place] chromosome positive chronic myeloid leukemia, initially diagnosed in April 2019. He began treatment with nilotinib 300 mg bid on 06/16/2019. He had a very good response, as during followup there was a consistent decline in the quantitative PCR for BCR/abl. As of April 2020 the quantitative PCR had become undetectable. During follow-up he has continued to complain of fatigue, and he also has been having anorexia and weight loss. As of his follow-up visit in July 2020, I had them draw he reducing the nilotinib dosage to 150 mg twice daily. It has not improved his symptoms. There has been some decline in his renal function, and he does have a slightly elevated serum lipase. The clinical significance of the latter finding is uncertain. At this point I will wait for the results of his quantitative PCR study before making any further changes in his CML treatment. In the meantime, since his blood pressure is relatively low, I will have him stop the amlodipine and the lisinopril. He will continue metoprolol 50 mg twice daily. I will recheck a basic metabolic profile in 2 weeks. Signed By: Fabricio Zamora M.D. <<Signature on File>>
[2020-11-11 19:19] LABS: Lipase 190 U/L (13-60)
[2020-11-16 17:58] LABS: P190 BCR ALB1 NOT DETECTED; P210 BCR ALB1 NOT DETECTED; Prior Results NG; Source blood
== END 2020-11-11 11:02 | disposition home or self-care (01) ==
LOC: ONCMED 11:03
PROVIDERS: PCP Internal Medicine; Visit Provider Internal Medicine Medical Oncology
DX: C92.10 Chronic myeloid leukemia, BCR/ABL-positive, not having achieved remission (principal); R03.1 Nonspecific low blood-pressure reading; E78.5 Hyperlipidemia, unspecified; E11.9 Type 2 diabetes mellitus without complications; I25.10 Atherosclerotic heart disease of native coronary artery without angina pectoris; I25.2 Old myocardial infarction; Z79.899 Other long term (current) drug therapy; Z79.890 Hormone replacement therapy
CPT/HCPCS: 36415; 80053; 81206; 83690; 85025; 99214

== ENCOUNTER 2021-02-05 11:53 | Outpatient (CLI) | payer MEDICAID, SELFPAY ==
[2021-02-05 12:28] LABS: Basophils # 0.1 10^3/uL (0.0-0.1); Basophils % 1.1 %; Eosinophils # 0.4 10^3/uL (0.0-0.8); Eosinophils % 5.1 %; Hematocrit 43.7 % (42.0-52.0); Hemoglobin 13.6 g/dL (11.7-16.6); Lymphocytes # 2.2 10^3/uL (0.8-4.8); Lymphocytes % 27.2 %; Mean Corpuscular HGB Conc 31.1 g/dL (30.0-36.0); Mean Corpuscular Hemoglobin 27.6 pg (28.0-34.0); Mean Corpuscular Volume 88.8 fl (80-94); Mean Platelet Volume 9.9 fL (7.4-10.4); Monocytes # 0.5 10^3/uL (0.2-0.9); Monocytes % 5.8 %; Neutrophils # 4.88 10^3/uL (1.8-7.7); Neutrophils % 60.3 %; Nucleated Red Blood Cells % 0 %; Platelet Count 209 10^3/cmm (130-400); Red Blood Count 4.92 10^6/uL (4.1-5.3); Red Cell Distribution Width 14.6 % (12.1-15.1); White Blood Count 8.1 10^3/uL (4.0-10.0)
[2021-02-05 12:49] LABS: Alanine Aminotransferase 19 U/L (0-41); Alkaline Phosphatase 118 IU/L (40-130); Blood Urea Nitrogen 16 mg/dL (6-20); Calcium 8.6 mg/dL (8.5-10.5); Carbon Dioxide 19 mmol/L (22-29); Chloride 103 mmol/L (98-107); Globulin 3.6 g/dL (1.3-4.6); Glomerular Filtration Rate 53.4 mL/min (90-130); Glucose 158 mg/dL (65-115); Osmolality Calculated 284 mOsm/kg (285-295); Sodium 135 mmol/L (136-145); Total Bilirubin 0.2 mg/dL (0.15-1.2); Total Protein 7.6 g/dL (6.6-8.7)
[2021-02-05 12:52] LABS: Anion Gap 17.8 (5-19); Aspartate Amino Transferase 24 U/L (0-40); Lactate Dehydrogenase 194 U/L (135-225); Potassium 4.8 mmol/L (3.5-5.1)
--- NOTE | 2021-02-07 11:26 | ONC FU_ITS ---
Dr. Zamora Patient Follow-Up Note Patient: Pradip Obrien Unit #: [id number]: 1970 Dicatated By: Fabricio Zamora M.D.Date of Visit:Feb 05, 2021 Onc Med Follow-up/Prog Note Chief Complaint: Chronic myeloid leukemia. History of Present Illness: This is a 50 year-old man with [place] chromosome positive chronic myeloid leukemia. He had seen Dr. Singh to establish primary care. His initial laboratory studies, from 04/20/2019, showed significantly elevated white blood cell count at 60,000 with hemoglobin 13.5 g and platelet count 520,000. He then had a repeat CBC here on 04/22/2019. It showed similar findings with hemoglobin 12.6 g, white blood cell count 57,700, and platelet count 467,000. The differential included 33% segs, 26% bands, 15% metamyelocytes, 19% myelocytes, 4% lymphocytes, 1% monocytes, 1% eosinophils, and 1% basophils. I reviewed that blood smear, and it did not appear to show any blasts. A FISH study on 05/01/2019 confirmed the presence of the BCR/abl translocation and 94% of the nuclei counted, consistent with chronic myeloid leukemia. There was a delay in getting treatment started due to insurance issues. He eventually did begin treatment with nilotinib 300 mg twice daily on 06/16/2019. During follow-up there was a continued gradual decline in the quantitative PCR for BCR/abl. As of 04/23/2020 it had become undetectable. At that point he continued meloxicam 300 mg twice daily. His other medical illnesses include obesity, hypertension, hyperlipidemia, and type 2 diabetes. He has not required medication for the diabetes since undergoing a gastric sleeve procedure in 2014. He also has coronary artery disease, and he suffered an acute non-ST elevation myocardial infarction in April 2018. He has been treated medically. He had undergone radioactive iodine ablation for Graves' disease at age 18, and he has had subsequent hypothyroidism. He was treated for pancreatitis in 2012, and he also has a history of gout. INTERIM HISTORY: At his follow-up visit on 08/05/2020 he had complained of increased fatigue, and he was also experiencing anorexia and weight loss. His quantitative PCR remained undetectable. I opted to reduce the nilotinib dosage to 150 mg twice daily. As of his follow-up visit on 11/11/2020 it was further reduced to 150 mg daily. He is seen for a follow-up visit. He has been feeling better generally. He says his energy lately has been better than usual. His appetite has been good. He has not had fever. He is still having some sweating at night. He has not had sore mouth or throat. He has occasional cough productive of clear sputum. He says it sometimes feels like his throat is getting closed. His breathing has otherwise been okay. He does not complain of chest pain. He has no GI/ complaints other than some acid reflux, which he manages adequately with [id number] medication. He has occasional aching in his joints. He does not complain of headache or dizziness. He has some numbness/tingling in his hands. Medications: Allopurinol 1 Tablet (of 300 mg) Oral daily, amLODIPine Besylate 1 Tablet (of 10 mg) Oral daily, Clopidogrel Bisulfate 1 Tablet (of 75 mg) Oral daily, Gabapentin 1 Tablet (of 600 mg) Oral t.i.d., Levothyroxine Sodium 1 Tablet (of 200 mcg) Oral daily, Lisinopril 1 Tablet (of 40 mg) Oral daily, Metoprolol Tartrate 1 Tablet (of 50 mg) Oral b.i.d., Multivitamin 1 Tablet Oral daily, Nitroglycerin Tablet, sublingual Sublingual PRN, ProAir HFA 1 Puff(s) (of 108 (90 base) mcg/act) Aerosol, solution Inhalation daily PRN, Sertraline HCl 1 Tablet (of 50 mg) Oral daily, Simvastatin 1 Tablet (of 40 mg) Oral daily, Victoza (18 mg/3mL) Subcutaneous daily Allergies: No Known Allergies. Vital Signs: Performed on Feb 05, 2021 13:35 Height - 65.00 in Weight - 283.8 lbs (HIGH) BSA - 2.30 sq.m BMI - 47.23 (HIGH) Temperature - 96.6 F (LOW) Pulse - 91 /min Respiration - 16 /min BP - 120/74 mm(hg) O2 Sat - 93 % (LOW) Pain - 0 Fatigue - 3 Physical Examination: Constitutional - He looks pretty good generally, Eyes - Sclerae nonicteric. Conjunctivae clear, ENMT - No lesions noted in the oral cavity, Hematologic/Lymphatic - No cervical, clavicular, or axillary adenopathy, Respiratory - Lungs sound clear, Cardiovascular - Heart rhythm is regular. There is a II/ systolic murmur. There is no gallop or rub noted, Abdomen - Distended. Liver and spleen do not appear enlarged. There is no abdominal mass or ascites noted and there is no inguinal adenopathy, Extremities - No edema, Neurologic - No focal neurologic deficits noted. Lab/Imaging: Test performed on Feb 05, 2021 12:17 LDH (Total) 194 U/L Sodium 135 mmol/L Potassium 4.8 mmol/L Chloride 103 mmol/L CO2 19 mmol/L Anion Gap 17.8 BUN 16 mg/dL Creatinine 1.4 mg/dL Cr Clearance (Est) 113.66 mL/min eGFR 53.4 mL/min Glucose 158 mg/dL Osmolality - Calculated 284 mOsm/kg Calcium 8.6 mg/dL Protein, Total 7.6 g/dL Albumin 4.0 g/dL Globulin 3.6 g/dL Bilirubin, Total 0.2 mg/dL ALT (SGPT) 19 U/L AST (SGOT) 24 U/L Alkaline Phosphatase 118 IU/L WBC 8.1 10 3/uL RBC 4.92 10 6/uL HGB 13.6 g/dL HCT 43.7 % MCV 88.8 fl MCH 27.6 pg MCHC 31.1 g/dL RDW 14.6 % Platelet Count 209 10 3/cmm MPV 9.9 fL Neutrophils 4.88 10 3/uL Lymphocytes 2.2 10 3/uL Monocytes 0.5 10 3/uL Eosinophils 0.4 10 3/uL Basophils 0.1 10 3/uL Neutrophil % 60.3 % Lymphocyte % 27.2 % Monocyte % 5.8 % Eosinophil % 5.1 % Basophils % 1.1 % NRBC % 0 % Problem List: 1. [place] chromosome positive chronic myeloid leukemia, initially diagnosed in April 2019. 2. He has a history of having undergone radioactive iodine ablation for Graves' disease at age 18 with subsequent hypothyroidism. 3. Obesity, for which he underwent a gastric sleeve procedure in 2014. 4. Hypertension. 5. Hyperlipidemia. 6. Type 2 diabetes, not requiring medication since the gastric sleeve procedure. 7. Coronary artery disease with acute non-ST elevation myocardial infarction in April 2018. 8. COPD. 9. He has mild peripheral neuropathy. 10. History of gout. 11. He has a history of pancreatitis in 2012. Problems Addressed with this Encounter and Plan: Patient with [place] chromosome positive chronic myeloid leukemia, initially diagnosed in April 2019. He began treatment with nilotinib 300 mg bid on 06/16/2019. He had a very good response, as during followup there was a consistent decline in the quantitative PCR for BCR/abl. As of April 2020 the quantitative PCR had become undetectable. During follow-up he hds continued to complain of fatigue, and he also was having anorexia and weight loss. As of his follow-up visit in July 2020, I had him reduce the nilotinib dosage to 150 mg twice daily. As of his follow-up visit in October 2020, the quantitative PCR remained undetectable, and the nilotinib dosage was further reduced to 150 mg daily. Since then he has been feeling better generally. As long as the PCR remains undetectable, he will continue treatment with naloxone about 150 mg daily. I will tentatively plan a follow-up visit in 3 months. Signed By: Fabricio Zamora M.D. <<Signature on File>>
[2021-02-08 17:48] LABS: CMV DNA By PCR NOT DETECTED; CMV DNA, QN PCR NOT DETECTED Log IU/mL; SOURCE blood
== END 2021-02-05 11:54 | disposition home or self-care (01) ==
PROVIDERS: PCP Internal Medicine; Visit Provider Internal Medicine Medical Oncology
DX: Z51.81 Encounter for therapeutic drug level monitoring (principal); C92.10 Chronic myeloid leukemia, BCR/ABL-positive, not having achieved remission; E03.9 Hypothyroidism, unspecified; Z98.84 Bariatric surgery status; I10 Essential (primary) hypertension; E78.5 Hyperlipidemia, unspecified; Z86.39 Personal history of other endocrine, nutritional and metabolic disease; I25.10 Atherosclerotic heart disease of native coronary artery without angina pectoris; J44.9 Chronic obstructive pulmonary disease, unspecified; M10.9 Gout, unspecified
CPT/HCPCS: 36415; 80053; 83615; 85025; 87496; 99214

== ENCOUNTER 2021-07-18 08:41 | Oncology outpatient (recurring) (ONCR) | payer MEDICAID, SELFPAY | END 2021-08-14 23:59 | disposition home or self-care (01) | LOC: ONCMED 08:43 | PROVIDERS: PCP Internal Medicine; Referring Provider Internal Medicine; Visit Provider Nurse Practitioner Family | DX: C92.10 Chronic myeloid leukemia, BCR/ABL-positive, not having achieved remission (principal); F17.210 Nicotine dependence, cigarettes, uncomplicated; Z79.899 Other long term (current) drug therapy | CPT/HCPCS: 99214 ==

== ENCOUNTER 2021-10-21 07:29 | Outpatient (CLI) | payer MEDICAID, SELFPAY ==
--- NOTE | 2021-10-21 | ECG_ITS ---
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 Interpretive Statements NAME OF STUDY: LEXISCAN SESTAMIBI STRESS TEST INDICATION: [Chest Pain, ] Procedure: At the baseline, the blood pressure was 119/87 mmHg with a heart rate of 62 bpm. The electrocardiogram showed normal sinus rhythm, normal axis with normal ST and T's. The Lexiscan was infused over a period of 20 seconds. A total of 0.4 mg of Lexiscan was infused. The stress phase was continued for a total of 5 minutes. Heart rate was at the end of stress phase was 72 bpm and a blood pressure of 97/66 mmHg. The EKG at the peak infusion revealed since normal sinus rhythm with no significant ST-T wave changes. Sestamibi was injected 20 seconds after the Lexiscan infusion. Blood pressure at the end of recovery phase was 97/66 mmHg with a heart rate of 71 bpm. Conclusion: 1. Normal EKG response to Lexiscan infusion 2. No Lexiscan induced chest pain or cardiac arrhythmia. 3. Normal blood pressure and heart rate response. 4. Sestamibi/sestamibi perfusion scan pending; see separate report. Electronically Signed On 11-03-2021 18:38:38 CDT by Efra Mcmullen M.D. [email or web address]
[2021-10-21 07:46] VITALS: BMI 47.9
--- NOTE | 2021-10-21 07:46 | NMCV_ITS ---
NM marlene perf SPECT r/s* [id number] Pradip Obrien Age: 50 Gender: M : 1970 Exam Date: 10/21/2021 08:54 Ordering Phys: Angelic Singh MD Technologist: DAVID Caraballo Exam Location: [facility] Indications: CHEST PAIN STRESS TEST Please see separate stress test report in [facility] for full findings IMAGE PROTOCOL Rest/Stress 1 Lexiscan Day Radiopharmaceutical Dose (mCi) Administration Site Administered by Rest: Tc-99m 10.7 IV DAVID Gomez Sestamibi Stress:Tc-99m 33.0 IV DAVID Gomez Sestamibi Rest: 21-Oct-2021 60 Discovery 630 Stress: 21-Oct-2021 30 Discovery 630 0.4mg Lexiscan. Images obtained in supine and prone position. SPECT RESULTS Technical Quality: Excellent Raw Data Analysis: Normal Image Corrections: No attenuation or motion correction applied Summed Stress Score: 6 Summed Rest Score: 13 Summed Difference Score: 0 PERFUSION FINDINGS There is a large in size fixed perfusion defect in apical, apical inferior and inferior wall. This is consistent with large sized prior infarct in RCA and LAD territory with no significant ischemia FUNCTIONAL RESULTS (calculated via Gated SPECT) Stress Image LV EF (%): 68 Stress EDV (mL):124 TID: 0.77 Stress ESV (mL):40 FUNCTIONAL FINDINGS: There is normal left ventricular systolic function. IMPRESSIONS 1. Abnormal myocardial perfusion imaging with large sized prior infarct seen in LAD and RCA territory. No significant ischemia seen. 2. LV systolic function is normal. Efra Mcmullen MD (Electronically Signed) Final Date: 22 October 2021 21:51 S
[2021-10-21 09:19] VITALS: BP 137/82; PULSE 99
[2021-10-21] MEDS: regadenoson 0.4 Mg/5 ml Syringe IVP (09:26)
== END 2021-10-21 07:30 | disposition home or self-care (01) ==
LOC: CDL 07:31
PROVIDERS: PCP Internal Medicine; Visit Provider Internal Medicine
DX: R07.9 Chest pain, unspecified (principal); R06.02 Shortness of breath
CPT/HCPCS: 78452; 93017; A9500; J2785

== ENCOUNTER 2021-10-27 09:35 | Oncology outpatient (recurring) (ONCR) | payer MEDICAID, SELFPAY ==
[2021-10-27 10:02] LABS: Basophils # 0.1 10^3/uL (0.0-0.1); Basophils % 1.5 %; Eosinophils # 0.3 10^3/uL (0.0-0.8); Eosinophils % 4.5 %; Hemoglobin 12.4 g/dL (11.7-16.6); Lymphocytes # 2.1 10^3/uL (0.8-4.8); Lymphocytes % 31.8 %; Mean Corpuscular HGB Conc 31.8 g/dL (30.0-36.0); Mean Corpuscular Hemoglobin 30.1 pg (28.0-34.0); Mean Corpuscular Volume 94.7 fl (80-94); Monocytes # 0.4 10^3/uL (0.2-0.9); Monocytes % 6.4 %; Neutrophils # 3.73 10^3/uL (1.8-7.7); Neutrophils % 55.5 %; Nucleated Red Blood Cells % 0 %; Platelet Count 178 10^3/cmm (130-400); Red Blood Count 4.12 10^6/uL (4.1-5.3); Red Cell Distribution Width 14.9 % (12.1-15.1); White Blood Count 6.7 10^3/uL (4.0-10.0)
[2021-10-27 10:32] LABS: Alanine Aminotransferase 22 U/L (0-41); Albumin Level 3.8 g/dL (3.5-5.2); Alkaline Phosphatase 111 U/L (40-130); Anion Gap 13.5 (5-19); Aspartate Amino Transferase 20 U/L (0-40); Blood Urea Nitrogen 15 mg/dL (6-20); Calcium 8.8 mg/dL (8.5-10.5); Carbon Dioxide 22 mmol/L (22-29); Chloride 106 mmol/L (98-107); Globulin 3.2 g/dL (1.3-4.6); Glomerular Filtration Rate 49.3 mL/min (90-130); Glucose 147 mg/dL (65-115); Lactate Dehydrogenase 117 U/L (135-225); Osmolality Calculated 288 mOsm/kg (285-295); Potassium 4.5 mmol/L (3.5-5.1); Sodium 137 mmol/L (136-145); Total Bilirubin 0.3 mg/dL (0.15-1.2)
[2021-11-01 22:32] LABS: BCR ABL1 (IS) 0.662 (0.000); P190 BCR ALB1 NOT DETECTED; P210 BCR ALB1 DETECTED; Prior Results NG; Source blood
== END 2021-11-14 23:59 | disposition home or self-care (01) ==
PROVIDERS: Nurse Practitioner; PCP Internal Medicine; Referring Provider Internal Medicine; Visit Provider Nurse Practitioner Family
DX: C92.10 Chronic myeloid leukemia, BCR/ABL-positive, not having achieved remission (principal); F17.210 Nicotine dependence, cigarettes, uncomplicated; Z79.899 Other long term (current) drug therapy
CPT/HCPCS: 36415; 80053; 81206; 83615; 83883; 84155; 84165; 85025; 99214

== ENCOUNTER 2022-04-30 16:05 | Outpatient (CLI) | payer MEDICAID, SELFPAY ==
--- NOTE | 2022-04-30 | CT_ITS ---
WS: [id number] CT CHEST WITH INTRAVENOUS CONTRAST HISTORY: PULMONARY NODULE TECHNIQUE: Contiguous 5 mm axial imaging performed on the thorax. Coronal and sagittal reformats are submitted. All CT scans at [facility] use at least one of these dose optimization techniques: automated exposure control; mA and/or kV adjustment per patient size (includes targeted exams where dose is matched to clinical indication); or iterative reconstruction. CONTRAST: Omnipaque 350; 100 mL IV. DLP: 676.01 mGy.cm COMPARISON: 10/31/2013 Lungs and central airway: Well aerated lungs. There are numerous bilateral peripheral pleural and sub pleural nodules which are less than a centimeter. These nodules are cysts stable since 2013 with no s ignificant interval change. No pneumonia. Pleura: Normal. No pleural effusion. Heart and pericardium: Normal size heart with no pericardial effusion. Mediastinum and ailyn: No mediastinum or hilar adenopathy. Vessels: Normal size aortic and pulmonary artery. No coronary artery calcifications. Bovine arch. Chest wall and lower neck: No soft tissue masses. Upper abdomen: Prior cholecystectomy. Hepatic steatosis. Small hiatal hernia. Surgical changes from p rior gastric sleeve most likely. Mild adrenal thickening with no mass. Spleen is incompletely include d on this examination of the chest but appears prominent. Mild splenomegaly was also noted on the CT of 01/07/2013. Osseous structures: No destructive process. CT/CT chest w con* [id number] IMPRESSION: 1. Long-term stability subpleural and pleural-based nodules. No mass or pneumo enriqueta. 2. Prior cholecystectomy. 3. No adenopathy.
[2022-04-30] MEDS: iohexol 350 mg/mL 500 mL Btl (per mL) IV (16:50)
== END 2022-04-30 16:06 | disposition home or self-care (01) ==
LOC: RAD 16:07
PROVIDERS: PCP Internal Medicine; Visit Provider Internal Medicine
DX: R91.1 Solitary pulmonary nodule (principal)
CPT/HCPCS: 71260; Q9967

== ENCOUNTER 2022-05-06 13:46 | Oncology outpatient (recurring) (ONCR) | payer MEDICAID, SELFPAY ==
[2022-05-06 14:19] LABS: Basophils # 0.1 10^3/uL (0.0-0.1); Basophils % 1.5 %; Eosinophils # 0.3 10^3/uL (0.0-0.8); Eosinophils % 4.8 %; Hematocrit 42.7 % (42.0-52.0); Hemoglobin 13.4 g/dL (11.7-16.6); Lymphocytes # 1.9 10^3/uL (0.8-4.8); Lymphocytes % 28.9 %; Mean Corpuscular HGB Conc 31.4 g/dL (30.0-36.0); Mean Corpuscular Hemoglobin 28.6 pg (28.0-34.0); Monocytes # 0.4 10^3/uL (0.2-0.9); Monocytes % 6.8 %; Neutrophils # 3.71 10^3/uL (1.8-7.7); Neutrophils % 57.2 %; Nucleated Red Blood Cells % 0 %; Platelet Count 166 10^3/cmm (130-400); Red Blood Count 4.69 10^6/uL (4.1-5.3); White Blood Count 6.5 10^3/uL (4.0-10.0)
[2022-05-06 14:36] LABS: Alanine Aminotransferase 22 U/L (0-41); Albumin Level 4.1 g/dL (3.5-5.2); Alkaline Phosphatase 99 U/L (40-130); Anion Gap 14.8 (5-19); Aspartate Amino Transferase 29 U/L (0-40); Blood Urea Nitrogen 17 mg/dL (6-20); Calcium 8.7 mg/dL (8.5-10.5); Carbon Dioxide 19 mmol/L (22-29); Chloride 108 mmol/L (98-107); Globulin 3.1 g/dL (1.3-4.6); Glomerular Filtration Rate 49.1 mL/min (90-130); Glucose 159 mg/dL (65-115); Osmolality Calculated 289 mOsm/kg (285-295); Potassium 4.8 mmol/L (3.5-5.1); Sodium 137 mmol/L (136-145); Total Bilirubin 0.2 mg/dL (0.15-1.2); Total Protein 7.2 g/dL (6.6-8.7)
[2022-05-11 16:30] LABS: BCR ABL1 (IS) 3.986 (0.000); P210 BCR ALB1 DETECTED; Prior Results NG; Source Peripheral blood
== END 2022-05-15 23:59 | disposition home or self-care (01) ==
PROVIDERS: PCP Internal Medicine; Visit Provider Nurse Practitioner Family
DX: C92.10 Chronic myeloid leukemia, BCR/ABL-positive, not having achieved remission (principal); F17.210 Nicotine dependence, cigarettes, uncomplicated; Z79.899 Other long term (current) drug therapy
CPT/HCPCS: 80053; 81206; 85025; 99214

== ENCOUNTER 2022-05-20 14:13 | Oncology outpatient (recurring) (ONCR) | payer MEDICAID, SELFPAY | END 2022-06-14 23:59 | disposition home or self-care (01) | PROVIDERS: PCP Internal Medicine; Visit Provider Nurse Practitioner Family | DX: C92.10 Chronic myeloid leukemia, BCR/ABL-positive, not having achieved remission (principal); F17.210 Nicotine dependence, cigarettes, uncomplicated; Z79.899 Other long term (current) drug therapy | CPT/HCPCS: 99214 ==

== ENCOUNTER 2022-06-18 13:23 | Oncology outpatient (recurring) (ONCR) | payer MEDICAID, SELFPAY ==
[2022-06-18 14:30] LABS: Basophils # 0.1 10^3/uL (0.0-0.1); Basophils % 1.4 %; Eosinophils # 0.3 10^3/uL (0.0-0.8); Hematocrit 42.5 % (42.0-52.0); Hemoglobin 13.2 g/dL (11.7-16.6); Lymphocytes # 2.1 10^3/uL (0.8-4.8); Lymphocytes % 31.4 %; Mean Corpuscular HGB Conc 31.1 g/dL (30.0-36.0); Mean Corpuscular Hemoglobin 28.6 pg (28.0-34.0); Mean Corpuscular Volume 92.2 fl (80-94); Mean Platelet Volume 9.7 fL (7.4-10.4); Monocytes # 0.5 10^3/uL (0.2-0.9); Monocytes % 6.9 %; Neutrophils # 3.64 10^3/uL (1.8-7.7); Neutrophils % 54.7 %; Nucleated Red Blood Cells % 0 %; Platelet Count 158 10^3/cmm (130-400); Red Blood Count 4.61 10^6/uL (4.1-5.3); Red Cell Distribution Width 15.9 % (12.1-15.1); White Blood Count 6.7 10^3/uL (4.0-10.0)
[2022-06-18 14:42] LABS: Alanine Aminotransferase 27 U/L (0-41); Albumin Level 4.2 g/dL (3.5-5.2); Alkaline Phosphatase 117 U/L (40-130); Anion Gap 13.5 (5-19); Aspartate Amino Transferase 23 U/L (0-40); Blood Urea Nitrogen 19 mg/dL (6-20); Calcium 8.8 mg/dL (8.5-10.5); Carbon Dioxide 24 mmol/L (22-29); Chloride 106 mmol/L (98-107); Globulin 3.3 g/dL (1.3-4.6); Glomerular Filtration Rate 42.5 mL/min (90-130); Glucose 113 mg/dL (65-115); Osmolality Calculated 289 mOsm/kg (285-295); Potassium 5.5 mmol/L (3.5-5.1); Sodium 138 mmol/L (136-145); Total Bilirubin 0.3 mg/dL (0.15-1.2); Total Protein 7.5 g/dL (6.6-8.7)
[2022-06-24 19:38] LABS: BCR ABL1 (IS) 2.203 (0.000); P210 BCR ALB1 DETECTED; Prior Results NG; Source Peripheral blood
== END 2022-07-15 23:59 | disposition home or self-care (01) ==
PROVIDERS: Internal Medicine Medical Oncology; PCP Internal Medicine; Visit Provider Nurse Practitioner Family
DX: C92.10 Chronic myeloid leukemia, BCR/ABL-positive, not having achieved remission (principal); F17.210 Nicotine dependence, cigarettes, uncomplicated; Z79.899 Other long term (current) drug therapy; R97.8 Other abnormal tumor markers
CPT/HCPCS: 36415; 80053; 81206; 85025

== ENCOUNTER 2022-08-11 12:44 | Oncology outpatient (recurring) (ONCR) | payer MEDICAID, SELFPAY ==
[2022-08-11 12:48] VITALS: BP 143/84; PULSE 70; RESP 16; TEMP 36.2; O2SAT 98
[2022-08-11 13:03] LABS: Basophils # 0.1 10^3/uL (0.0-0.1); Basophils % 1.4 %; Eosinophils # 0.4 10^3/uL (0.0-0.8); Hematocrit 43.5 % (42.0-52.0); Hemoglobin 13.4 g/dL (11.7-16.6); Lymphocytes # 1.9 10^3/uL (0.8-4.8); Lymphocytes % 25.6 %; Mean Corpuscular HGB Conc 30.8 g/dL (30.0-36.0); Mean Corpuscular Hemoglobin 27.7 pg (28.0-34.0); Mean Corpuscular Volume 89.9 fl (80-94); Mean Platelet Volume 9.4 fL (7.4-10.4); Monocytes # 0.4 10^3/uL (0.2-0.9); Monocytes % 5.9 %; Neutrophils # 4.48 10^3/uL (1.8-7.7); Neutrophils % 61.7 %; Nucleated Red Blood Cells % 0 %; Platelet Count 174 10^3/cmm (130-400); Red Blood Count 4.84 10^6/uL (4.1-5.3); Red Cell Distribution Width 14.5 % (12.1-15.1); White Blood Count 7.3 10^3/uL (4.0-10.0)
[2022-08-11 13:26] LABS: Alanine Aminotransferase 20 U/L (0-41); Alkaline Phosphatase 139 U/L (40-130); Anion Gap 15.6 (5-19); Aspartate Amino Transferase 23 U/L (0-40); Blood Urea Nitrogen 10 mg/dL (6-20); Calcium 9.2 mg/dL (8.5-10.5); Carbon Dioxide 25 mmol/L (22-29); Chloride 102 mmol/L (98-107); Globulin 3.3 g/dL (1.3-4.6); Glomerular Filtration Rate 63.6 mL/min (90-130); Glucose 125 mg/dL (65-115); Osmolality Calculated 287 mOsm/kg (285-295); Potassium 4.6 mmol/L (3.5-5.1); Sodium 138 mmol/L (136-145); Total Bilirubin 0.4 mg/dL (0.15-1.2); Total Protein 7.3 g/dL (6.6-8.7)
[2022-08-14 17:53] LABS: BCR ABL1 (IS) 1.168 (0.000); P210 BCR ALB1 DETECTED; Prior Results NG
== END 2022-08-14 23:59 | disposition home or self-care (01) ==
LOC: ONCMED 12:45
PROVIDERS: PCP Internal Medicine; Visit Provider Nurse Practitioner Family
DX: C92.10 Chronic myeloid leukemia, BCR/ABL-positive, not having achieved remission (principal); F17.210 Nicotine dependence, cigarettes, uncomplicated; Z79.899 Other long term (current) drug therapy
CPT/HCPCS: 36415; 80053; 81206; 85025; 99214

== ENCOUNTER 2022-10-27 09:26 | Outpatient (CLI) | payer MEDICAID, SELFPAY ==
--- NOTE | 2022-10-27 09:34 | CT_ITS ---
WS: [id number] LDCT LUNG CANCER SCREENING HISTORY: HX OF TOBACCO USE TECHNIQUE: Axial imaging performed from the apices to 1 cm below the costophrenic angles. Coronal and sagittal reformats are submitted with axial MIP series. All CT scans at [facility] use at least one of these dose optimization techniques: automated exposure control; mA and/or kV adjustment per patient size (includes targeted exams where dose is matched to clinical indication); or iterativ e reconstruction. DLP: 244.39 mGy.cm DIvol: Mean CTDIvol: 6.10 (mGy) COMPARISON: None available. Diagnostic quality: Satisfactory Lungs: There are numerous 2 to 5 mm pleural and subpleural nodules scattered throughout both lungs. T hese nodules have been present since 2013. Some of the nodules are better visualized today due to sma ller slice thickness. No new mass or nodule identified. No pneumonia. No endobronchial lesions. Heart: Normal size heart. There is a very small pericardial effusion which has slightly increased in size since 04/30/2022.. Other findings: Normal size aorta. Pulmonary arteries equal size to the aorta. No mediastinal or ailyn r adenopathy. Bilateral gynecomastia. Hepatic steatosis. Prior cholecystectomy. Surgical clips adjace nt to the stomach. Suspect prior gastric surgery. The entire spleen is not been included but does gabriella ear large. The liver is also enlarged. IMPRESSION: CT/CT lung screening [id number] LUNG-RADS: 2-Benign Appearance or Behavior FOLLOW UP: 12 Month: Continue annual screening with LDCT OTHER FINDINGS (S MODIFIER): None.
== END 2022-10-27 09:27 | disposition home or self-care (01) ==
LOC: RAD 09:26
PROVIDERS: PCP Internal Medicine; Visit Provider Internal Medicine
DX: Z12.2 Encounter for screening for malignant neoplasm of respiratory organs (principal); Z87.891 Personal history of nicotine dependence
CPT/HCPCS: 71271

== ENCOUNTER 2022-11-12 13:35 | Oncology outpatient (recurring) (ONCR) | payer MEDICAID, SELFPAY ==
[2022-11-12 14:05] VITALS: BP 116/77; PULSE 74; RESP 16; TEMP 36.4; O2SAT 96
[2022-11-12 14:14] LABS: Basophils # 0.3 10^3/uL (0.0-0.1); Basophils % 3.1 %; Eosinophils # 0.3 10^3/uL (0.0-0.8); Eosinophils % 3.3 %; Lymphocytes # 2.1 10^3/uL (0.8-4.8); Lymphocytes % 24.1 %; Mean Corpuscular HGB Conc 31.2 g/dL (30-55); Mean Corpuscular Hemoglobin 27.1 pg (27-33); Mean Platelet Volume 9.8 fL (7.4-10.4); Monocytes # 0.5 10^3/uL (0.2-0.9); Monocytes % 5.7 %; Neutrophils # 5.33 10^3/uL (1.8-7.7); Neutrophils % 61.1 %; Nucleated Red Blood Cells % 0 %; Platelet Count 190 10^3/cmm (157-399); Red Blood Count 4.83 10^6/uL (3.85-5.65); Red Cell Distribution Width 16.8 % (12.1-15.1); White Blood Count 8.73 10^3/uL (3.29-11.43)
[2022-11-12 14:28] LABS: Alanine Aminotransferase 27 U/L (0-41); Albumin Level 4.1 g/dL (3.5-5.2); Alkaline Phosphatase 141 U/L (40-130); Aspartate Amino Transferase 28 U/L (0-40); Blood Urea Nitrogen 18 mg/dL (6-20); Calcium 9.5 mg/dL (8.5-10.5); Carbon Dioxide 25 mmol/L (22-29); Chloride 101 mmol/L (98-107); Globulin 3.3 g/dL (1.3-4.6); Glomerular Filtration Rate 53.2 mL/min (90-130); Glucose 140 mg/dL (65-115); Osmolality Calculated 288 mOsm/kg (285-295); Sodium 137 mmol/L (136-145); Total Bilirubin 0.5 mg/dL (0.15-1.2); Total Protein 7.4 g/dL (6.6-8.7)
[2022-11-12 14:31] LABS: Anion Gap 15.9 (5-19); Lactate Dehydrogenase 165 U/L (135-225); Potassium 4.9 mmol/L (3.5-5.1)
[2022-11-18 17:18] LABS: P210 BCR ALB1 DETECTED; P210 BCR ALB1 Yes Test Yes; Prior Results NG; Source blood
== END 2022-11-14 23:59 | disposition home or self-care (01) ==
LOC: ONCMED 13:36
PROVIDERS: PCP Internal Medicine; Visit Provider Nurse Practitioner Family
DX: C92.10 Chronic myeloid leukemia, BCR/ABL-positive, not having achieved remission (principal)
CPT/HCPCS: 36415; 80053; 81206; 83615; 85025

== ENCOUNTER 2022-11-25 13:45 | Oncology outpatient (recurring) (ONCR) | payer MEDICAID, SELFPAY ==
[2022-11-25 13:59] VITALS: BP 152/92; PULSE 74; RESP 17; TEMP 36.1; O2SAT 96
[2022-12-03 07:25] LABS: Miscellaneous Test See Scanned Lab Rpt
== END 2022-12-15 23:59 | disposition home or self-care (01) ==
PROVIDERS: Internal Medicine Medical Oncology; PCP Internal Medicine; Visit Provider Nurse Practitioner Family
DX: C92.10 Chronic myeloid leukemia, BCR/ABL-positive, not having achieved remission (principal)
CPT/HCPCS: 36415; 81170; 99214

== ENCOUNTER 2022-12-17 15:17 | Outpatient (CLI) | payer MEDICAID, SELFPAY ==
[2022-12-28 18:29] LABS: ABL Kinase Domain Mutation NONE DETECTED; ABL Kinase Domain Possible NONE DETECTED
== END 2022-12-17 15:18 | disposition home or self-care (01) ==
PROVIDERS: PCP Internal Medicine; Visit Provider Internal Medicine Medical Oncology
DX: C92.10 Chronic myeloid leukemia, BCR/ABL-positive, not having achieved remission (principal)
CPT/HCPCS: 36415; 81170

== ENCOUNTER 2023-01-05 13:13 | Oncology outpatient (recurring) (ONCR) | payer MEDICAID, SELFPAY ==
[2023-01-05 13:20] VITALS: BP 132/79; PULSE 84; RESP 20; TEMP 36.3; O2SAT 93
[2023-01-05 13:37] LABS: Basophils # 0.4 10^3/uL (0.0-0.1); Eosinophils # 0.2 10^3/uL (0.0-0.8); Eosinophils % 2.5 %; Hematocrit 41.4 % (37-53); Lymphocytes # 2.2 10^3/uL (0.8-4.8); Mean Corpuscular HGB Conc 31.9 g/dL (30-55); Mean Corpuscular Hemoglobin 28.9 pg (27-33); Mean Corpuscular Volume 90.6 fl (82-101); Mean Platelet Volume 9.1 fL (7.4-10.4); Monocytes # 0.5 10^3/uL (0.2-0.9); Monocytes % 5.5 %; Neutrophils # 5.42 10^3/uL (1.8-7.7); Neutrophils % 59.3 %; Nucleated Red Blood Cells % 0 %; Platelet Count 204 10^3/cmm (157-399); Red Blood Count 4.57 10^6/uL (3.85-5.65); Red Cell Distribution Width 17.7 % (12.1-15.1); White Blood Count 9.14 10^3/uL (3.29-11.43)
[2023-01-05 13:55] LABS: Alanine Aminotransferase 33 U/L (0-41); Albumin Level 4.1 g/dL (3.5-5.2); Alkaline Phosphatase 130 U/L (40-130); Blood Urea Nitrogen 15 mg/dL (6-20); Calcium 9.3 mg/dL (8.5-10.5); Carbon Dioxide 22 mmol/L (22-29); Chloride 106 mmol/L (98-107); Globulin 3.4 g/dL (1.3-4.6); Glomerular Filtration Rate 57.7 mL/min (90-130); Glucose 164 mg/dL (65-115); Osmolality Calculated 292 mOsm/kg (285-295); Sodium 139 mmol/L (136-145); Total Bilirubin 0.4 mg/dL (0.15-1.2); Total Protein 7.5 g/dL (6.6-8.7)
[2023-01-05 13:57] LABS: Anion Gap 15.9 (5-19); Aspartate Amino Transferase 37 U/L (0-40); Lactate Dehydrogenase 240 U/L (135-225); Potassium 4.9 mmol/L (3.5-5.1)
[2023-01-15 12:20] LABS: P210 BCR ALB1 DETECTED; P210 BCR ALB1 Yes Test Yes; Prior Results NG; Source blood
== END 2023-01-14 23:59 | disposition home or self-care (01) ==
LOC: ONCMED 13:13
PROVIDERS: Internal Medicine Medical Oncology; PCP Internal Medicine; Visit Provider Nurse Practitioner Family
DX: C92.10 Chronic myeloid leukemia, BCR/ABL-positive, not having achieved remission (principal); F17.210 Nicotine dependence, cigarettes, uncomplicated; Z79.899 Other long term (current) drug therapy; R97.8 Other abnormal tumor markers
CPT/HCPCS: 36415; 80053; 81206; 83615; 85025; 99214

== ENCOUNTER 2023-01-21 08:21 | Oncology outpatient (recurring) (ONCR) | payer MEDICAID, SELFPAY ==
[2023-01-21 08:50] VITALS: BP 126/80; PULSE 93; RESP 16; TEMP 36.1; O2SAT 96
[2023-01-21 08:59] LABS: Hematocrit 41.4 % (37-53); Mean Corpuscular HGB Conc 30.9 g/dL (30-55); Mean Corpuscular Hemoglobin 29.3 pg (27-33); Mean Corpuscular Volume 94.7 fl (82-101); Mean Platelet Volume 9.5 fL (7.4-10.4); Platelet Count 238 10^3/cmm (157-399); Red Blood Count 4.37 10^6/uL (3.85-5.65); Red Cell Distribution Width 17.2 % (12.1-15.1); White Blood Count 10.92 10^3/uL (3.29-11.43)
[2023-01-21 09:17] LABS: Alanine Aminotransferase 35 U/L (0-41); Albumin Level 4.1 g/dL (3.5-5.2); Alkaline Phosphatase 120 U/L (40-130); Anion Gap 15.6 (5-19); Aspartate Amino Transferase 34 U/L (0-40); Blood Urea Nitrogen 17 mg/dL (6-20); Calcium 9.1 mg/dL (8.5-10.5); Carbon Dioxide 23 mmol/L (22-29); Chloride 103 mmol/L (98-107); Globulin 3.2 g/dL (1.3-4.6); Glomerular Filtration Rate 45.4 mL/min (90-130); Glucose 134 mg/dL (65-115); Osmolality Calculated 288 mOsm/kg (285-295); Potassium 4.6 mmol/L (3.5-5.1); Sodium 137 mmol/L (136-145); Total Bilirubin 0.3 mg/dL (0.15-1.2); Total Protein 7.3 g/dL (6.6-8.7)
[2023-01-21 09:58] LABS: Absolute Eosinophils 0.2 10^3/cmm (0.0-0.7); Absolute Neutrophil 7.2 10^3/cmm (1.4-6.5); Absolute Segmented Neutrophil 7.1 10/cmm (1.6-7.1); Band Neutrophils Absolute 0.1 10^3/cmm (0.0-1.2); Basophils Absolute 0.1 10^3/cmm (0.0-0.2); Eosinophils 2 %; Lymphocytes 21 %; Lymphocytes Absolute 2.6 10^3/cmm (1.2-3.4); Monocytes Absolute 0.3 10^3/cmm (0.1-0.6); Platelet Estimate Normal (Normal); Segmented Neutrophils 65 %; Slide Review Slide Review Perform; Total Cells Counted 100 (0-100)
== END 2023-02-14 23:59 | disposition home or self-care (01) ==
PROVIDERS: PCP Internal Medicine; Visit Provider Nurse Practitioner Family
DX: C92.10 Chronic myeloid leukemia, BCR/ABL-positive, not having achieved remission (principal); F17.210 Nicotine dependence, cigarettes, uncomplicated; Z79.899 Other long term (current) drug therapy; R97.8 Other abnormal tumor markers
CPT/HCPCS: 36415; 80053; 85007; 85025; 99214

== ENCOUNTER 2023-03-17 13:45 | Oncology outpatient (recurring) (ONCR) | payer MEDICAID, SELFPAY ==
[2023-02-17 09:50] VITALS: BP 103/71; PULSE 77; RESP 16; TEMP 36.3; O2SAT 94
[2023-02-17 10:01] LABS: Basophils # 0.1 10^3/uL (0.0-0.1); Eosinophils # 0.4 10^3/uL (0.0-0.8); Eosinophils % 5.5 %; Lymphocytes # 1.7 10^3/uL (0.8-4.8); Lymphocytes % 26.9 %; Mean Corpuscular HGB Conc 31.8 g/dL (30-55); Mean Corpuscular Hemoglobin 29.9 pg (27-33); Mean Corpuscular Volume 94.1 fl (82-101); Mean Platelet Volume 9.8 fL (7.4-10.4); Monocytes # 0.4 10^3/uL (0.2-0.9); Monocytes % 6.6 %; Neutrophils # 3.76 10^3/uL (1.8-7.7); Neutrophils % 58.7 %; Nucleated Red Blood Cells % 0 %; Platelet Count 179 10^3/cmm (157-399); Red Blood Count 4.25 10^6/uL (3.85-5.65); Red Cell Distribution Width 17.4 % (12.1-15.1)
[2023-02-17 10:22] LABS: Alanine Aminotransferase 32 U/L (0-41); Albumin Level 3.9 g/dL (3.5-5.2); Alkaline Phosphatase 164 U/L (40-130); Anion Gap 14.9 (5-19); Aspartate Amino Transferase 25 U/L (0-40); Blood Urea Nitrogen 18 mg/dL (6-20); Carbon Dioxide 19 mmol/L (22-29); Chloride 108 mmol/L (98-107); Globulin 3.4 g/dL (1.3-4.6); Glomerular Filtration Rate 39.7 mL/min (90-130); Glucose 155 mg/dL (65-115); Lactate Dehydrogenase 136 U/L (135-225); Osmolality Calculated 289 mOsm/kg (285-295); Potassium 4.9 mmol/L (3.5-5.1); Sodium 137 mmol/L (136-145); Total Bilirubin 0.4 mg/dL (0.15-1.2); Total Protein 7.3 g/dL (6.6-8.7)
[2023-02-20 17:14] LABS: P210 BCR ALB1 DETECTED; P210 BCR ALB1 Yes Test Yes; Prior Results NG
[2023-03-17 14:01] LABS: Basophils # 0.1 10^3/uL (0.0-0.1); Basophils % 1.2 %; Eosinophils # 0.4 10^3/uL (0.0-0.8); Eosinophils % 5.7 %; Hematocrit 37.3 % (37-53); Lymphocytes # 1.3 10^3/uL (0.8-4.8); Lymphocytes % 19.6 %; Mean Corpuscular HGB Conc 30.6 g/dL (30-55); Mean Corpuscular Hemoglobin 29.4 pg (27-33); Mean Corpuscular Volume 96.1 fl (82-101); Mean Platelet Volume 10.3 fL (7.4-10.4); Monocytes # 0.5 10^3/uL (0.2-0.9); Monocytes % 6.9 %; Neutrophils # 4.39 10^3/uL (1.8-7.7); Neutrophils % 66.3 %; Nucleated Red Blood Cells % 0 %; Platelet Count 150 10^3/cmm (157-399); Red Blood Count 3.88 10^6/uL (3.85-5.65); Red Cell Distribution Width 17.8 % (12.1-15.1); White Blood Count 6.63 10^3/uL (3.29-11.43)
[2023-03-17 14:24] LABS: Alanine Aminotransferase 46 U/L (0-41); Albumin Level 4.1 g/dL (3.5-5.2); Alkaline Phosphatase 161 U/L (40-130); Anion Gap 15.9 (5-19); Aspartate Amino Transferase 42 U/L (0-40); Blood Urea Nitrogen 27 mg/dL (6-20); Calcium 9.5 mg/dL (8.5-10.5); Carbon Dioxide 17 mmol/L (22-29); Chloride 108 mmol/L (98-107); Globulin 3.6 g/dL (1.3-4.6); Glomerular Filtration Rate 31.5 mL/min (90-130); Glucose 100 mg/dL (65-115); Lactate Dehydrogenase 176 U/L (135-225); Osmolality Calculated 285 mOsm/kg (285-295); Potassium 5.9 mmol/L (3.5-5.1); Sodium 135 mmol/L (136-145); Total Bilirubin 0.3 mg/dL (0.15-1.2); Total Protein 7.7 g/dL (6.6-8.7)
[2023-03-24 23:39] LABS: P210 BCR ALB1 DETECTED; P210 BCR ALB1 Yes Test Yes; Prior Results NG; Source blood
== END 2023-03-17 23:59 | disposition home or self-care (01) ==
PROVIDERS: Internal Medicine Medical Oncology; PCP Internal Medicine; Visit Provider Nurse Practitioner Family
DX: Z53.9 Procedure and treatment not carried out, unspecified reason (principal); C92.10 Chronic myeloid leukemia, BCR/ABL-positive, not having achieved remission; F17.210 Nicotine dependence, cigarettes, uncomplicated; R79.89 Other specified abnormal findings of blood chemistry; Z79.899 Other long term (current) drug therapy
CPT/HCPCS: 36415; 80053; 81206; 83615; 84550; 85025; 99214

== ENCOUNTER 2023-03-22 11:03 | Inpatient (IN) | payer MEDICAID, SELFPAY ==
[2023-03-22] VITALS (55 sets, daily range): BP systolic 70–125; BP diastolic 37–72; PULSE 76–96; RESP 13–30; TEMP 35.9–36.6; O2SAT 86–100; BMI 47.9; BMI 49.6
--- NOTE | 2023-03-22 11:13 | XR_ITS ---
WS: [id number] XR chest 1V portable [id number] REASON FOR EXAM: weakness FINDINGS: The chest is not significantly changed compared to 04/25/2018. Minimal tortuosity of the thoracic aorta. Normal heart size. Minimal calcified granulomatous disease bilaterally. No acute/subacute pulmonary parenchymal or pleural abnormality identified. IMPRESSION: No acute chest abnormality.
--- NOTE | 2023-03-22 11:13 | CTR_ITS ---
PROCEDURE INFORMATION: Exam: CT Head Without Contrast Exam date and time: 03/22/2023 11:20 AM Age: 52 years old Clinical indication: Dizziness; Additional info: Dizzy TECHNIQUE: Imaging protocol: Computed tomography of the head without contrast. Radiation optimization: All CT scans at this facility use at least one of these dose optimization techniques: automated exposure control; mA and/or kV adjustment per patient size (includes targeted exams where dose is matched to clinical indication); or iterative reconstruction. COMPARISON: No relevant prior studies available. RADIATION DOSE METRICS: Total DLP (mGy-cm): 1079.28 FINDINGS: Brain: No hemorrhage. Unremarkable white matter. No mass effect. Cerebral ventricles: No ventriculomegaly. Paranasal sinuses: Visualized sinuses are unremarkable. No fluid levels. Mastoid air cells: Visualized mastoid air cells are well aerated. Bones/joints: Unremarkable. No acute fracture. Soft tissues: Unremarkable. CT/CT head wo con* [id number] IMPRESSION: No acute intracranial abnormality.
--- NOTE | 2023-03-22 11:14 | ECG_ITS ---
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 Measurements Intervals [place] Rate: 85 P: 42 IL: 220 QRS: -69 QRSD: 104 T: 70 QT: 367 QTc: 437 Interpretive Statements SINUS RHYTHM WITH FIRST DEGREE AV BLOCK LEFT ANTERIOR FASCICULAR BLOCK [QRS AXIS <= -45, QR IN I, RS IN II] POSSIBLE ANTERIOR MYOCARDIAL INFARCTION , PROBABLY OLD [30 ms Q WAVE IN V3/V4, OR R < 0.2 mV IN V4] Compared to ECG 04/16/2018 07:16:12 First degree AV block now present Left anterior fascicular block now present Myocardial infarct finding now present Poor R-wave progression no longer present Electronically Signed On 03-22-2023 11:44:31 MEDIA STRATEGIST by Efra Mcmullen M.D. [id number]
--- NOTE | 2023-03-22 11:29 | ED_ITS ---
HPI - Weakness 2 General: Chief complaint: ER Hold Stated complaint: weakness Time Seen by Provider: 03/22/23 11:05 Source: patient and EMS Mode of arrival: EMS Limitations: no limitations History of Present Illness: 52-year-old male with a history of CML h e is on immunotherapy states over the last 2 days has been having generalized weakness states he is felt very lightheaded as well had some nausea states had difficulty walking along with dizziness. Patient is hypotensive here EMS states he was hypotensive in route as well he denies any pain or fever. Associated symptoms: Reports nausea; Denies chest pain, chills, fever(s), headache(s) or vomiting Review of Systems 2 Const: Reports: fatigue and malaise; Denies: fever(s) or chills Eyes: Reports: blurry vision; Denies: eye discomfort ENMT: Denies: throat pain or dental pain Card: Denies: chest pain Resp: Denies: dyspnea GI: Reports: nausea; Denies: abdominal pain, vomiting or diarrhea Musc: Denies: neck pain or back pain Skin/Breast: Denies: rash Neuro: Reports: weakness in extremities and difficulty walking; Denies: headache(s) PFSH ED 2 PFSH: Medical History Liver cirrhosis secondary to RANGEL Anxiety Depression PTSD (post-traumatic stress disorder) Psychiatric care Gout Dyslipidemia CML (chronic myeloid leukemia) History of myocardial infarction in adulthood Hypertension Diabetes Surgical History Status post colonoscopy with polypectomy (03/12/20) Status post colonoscopy with polypectomy x4 and internal hemorrhoids Pathology: Serrated adenoma Recommend follow-up colonoscopy in 5 years S/P laparoscopic sleeve gastrectomy History of laparoscopic cholecystectomy History of knee surgery Family History Family/Other Cancer colon cancer Lung disease Grandmother Cancer Mother Hyperlipidemia Hypertension Stroke Other Dementia Denies family history of Diabetes CAD (coronary artery disease) Clotting disorder Psychiatric illness Chronic kidney disease (CKD) Suicide Anesthesia complication Bleeding disorder Social History Smoking and tobacco/nicotine status: current every day tobacco/nicotine user cigarettes Packs smoked per day: 0.50 Years cigarettes smoked: 33 Quit status (tobacco/nicotine): has tried quititng Number of times tried to quit tobacco: 4 Second hand smoke exposure: No Alcohol intake: former Year of sobriety/quit date alcohol: 2011 Substance/Drug Use: never Physical Exam 2 Const: COMMON NORMALS: patient oriented x3 GENERAL APPEARANCE: ill appearing HENMT: COMMON NORMALS: normocephalic and atraumatic HEAD & SCALP: n ormocephalic and atraumatic Eye: COMMON NORMALS: Equal, round and reactive pupils present and EOMs intact bilaterally PUPIL: Yes Equal, round and reactive pupils present Neck/C-Spine: COMMON NORMALS: full ROM and supple Chest: COMMONS NORMALS: normal inspection of the chest and normal palpation of entire chest wall Resp: COMMON NORMALS: normal respiratory effort, No retractions, No use of accessory muscles and clear to auscultation bilaterally AUSCULTATION: clear to auscultation bilaterally Cardio: COMMON NORMALS: regular rate, regular rhythm and No murmurs present (Cardio) RATE: regular rate RHYTHM: regular rhythm GI: COMMON NORMALS: Normal to inspection, nondistended, normoactive bowel sounds present, Soft to palpation, non-tender and no masses PALPATION: Yes Soft to palpation Extremity: COMMON NORMALS: normal to inspection and full ROM Neuro: COMMON NORMALS: patient oriented x3, moves all extremities and no focal motor deficits Psych: COMMON NORMALS: mental status grossly normal, Normal thought process present and cooperative THOUGHT PROCESS: Normal thought process present Skin: COMMON NORMALS: no rashes or lesions noted and no wounds GENERAL SKIN EXAM: no rashes or lesions noted Course 2 Vital Signs: Vital signs: Vital Signs Temperature 98 F 03/22/23 11:07 Pulse Rate 87 03/22/23 11:07 Blood Pressure 81/37 03/22/23 11:07 Pulse Oximetry 97 03/22/23 11:07 Oxygen Delivery Me thod Room Air 03/22/23 11:07 MDM - Weakness Medical Decision Making Patient presents with generalized weakness is likely from dehydration he does have acute kidney injury with an elevated creatinine from his baseline he had been making urine he did been hypotensive here likely due to dehydration has no signs of infection no signs of sepsis I spoke to the hospitalist will admit at this time. Medical Records I reviewed the patient's medical records. Lab Data I reviewed the patient's lab results. 03/22/23 10:55 03/22/23 10:[address] 03/22/23 11:13 IMPRESSION: No acute intracranial abnormality. Laboratory Results WBC 8.31 10^3/uL (3.29-11.43) 03/22/23 10:55 RBC 3.48 10^6/uL (3.85-5.65) L 03/22/23 10:55 Hgb 10.40 g/dL (11.27-16.99) L 03/22/23 10:55 Hct 34.3 % (37-53) L 03/22/23 10:55 MCV 98.6 fl (82-101) 03/22/23 10:55 MCH 29.9 pg (27-33) 03/22/23 10:55 MCHC 30.3 g/dL (30-55) 03/22/23 10:55 RDW 18.4 % (12.1-15.1) H 03/22/23 10:55 Plt Count 155 10^3/cmm (157-399) L 03/22/23 10:55 MPV 10.9 fL (7.4-10.4) H 03/22/23 10:55 Neut % (Auto) 63.8 % 03/22/23 10:55 Lymph % (Auto) 21.5 % 03/22/23 10:55 [place] % (Auto) 7.8 % 03/22/23 10:55 Eos % (Auto) 5.7 % 03/22/23 10:55 Baso % (Auto) 0.8 % 03/22/23 10:55 Neut # (Auto) 5.30 10^3/uL (1.8-7.7) 03/22/23 10:55 Lymph # (Auto) 1.8 10^3/uL (0.8-4.8) 03/22/23 10:55 [place] # (Auto) 0.7 10^3/uL (0.2-0.9) 03/22/23 10:55 Eos # (Auto) 0.5 10^3/uL (0.0-0.8) 03/22/23 10:55 Baso # (Auto) 0.1 10^3/uL (0.0-0.1) 03/22/23 10:55 Nucleated RBC % (auto) 0 % 03/22/23 10:55 Nucleated RBCs # 0.0 /100WBC 03/22/23 10:55 PT 14.50 SECONDS (12.1-14.9) 03/22/23 10:55 INR 1.10 (0.8-1.2) 03/22/23 10:55 Sodium 133 mmol/L (136-145) L 03/22/23 10:55 Potassium 5.4 mmol/L (3.5-5.1) H 03/22/23 10:55 Chloride 105 mmol/L (98-107) 03/22/23 10:55 Carbon Dioxide 11 mmol/L (22-29) L 03/22/23 10:55 Anion Gap 22.4 (5-19) H 03/22/23 10:55 BUN 47 mg/dL (6-20) H 03/22/23 10:55 Creatinine 7.4 mg/dL (0.7-1.2) H* 03/22/23 10:55 GFR Calculation 7.8 mL/min (90-130) L 03/22/23 10:55 Glucose 109 mg/dL (65-115) 03/22/23 10:55 Calculated Osmolality 289 mOsm/kg (285-295) 03/22/23 10:55 Lactic Acid 1.8 mmol/L (0.5-2.2) 03/22/23 10:55 Uric Acid 5.1 mg/dL (3.4-7.0) 03/22/23 10:55 Calcium 8.9 mg/dL (8.5-10.5) 03/22/23 10:55 Magnesium 2.6 mg/dL (1.7-2.3) H 03/22/23 10:55 Total Bilirubin 0.4 mg/dL (0.15-1.2) 03/22/23 10:55 AST 22 U/L (0-40) 03/22/23 10:55 ALT 35 U/L (0-41) 03/22/23 10:55 Alkaline Phosphatase 161 U/L (40-130) H 03/22/23 10:55 Total Protein 7.5 g/dL (6.6-8.7) 03/22/23 10:55 Albumin 3.9 g/dL (3.5-5.2) 03/22/23 10:55 Globulin 3.6 g/dL (1.3-4.6) 03/22/23 10:55 TSH 0.85 uIU/mL (0.27-4.20) 03/22/23 10:55 All radiology interpretation(s) finalized by discharge EKG Data EKG 1: I personally reviewed and interpreted this EKG as follows: EKG interpretation date: 03/22/23 EKG interpretation time: 11:30 Interpretation: nsr hr [address] or t wave abnormalities qrs 104 qtc 409 Critical Care Time 2 Critical Care Time: Critical Care Time: Yes Total Critical Care Time: 40 Attestation: The high probability of a clinically significant, sudden or life threatening deterioration of the patient's renal system(s) required my full and direct attention, intervention and personal management. The critical care time is as shown. 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
[2023-03-22 11:30] LABS: Basophils # 0.1 10^3/uL (0.0-0.1); Basophils % 0.8 %; Eosinophils # 0.5 10^3/uL (0.0-0.8); Eosinophils % 5.7 %; Hematocrit 34.3 % (37-53); Lymphocytes # 1.8 10^3/uL (0.8-4.8); Lymphocytes % 21.5 %; Mean Corpuscular HGB Conc 30.3 g/dL (30-55); Mean Corpuscular Hemoglobin 29.9 pg (27-33); Mean Corpuscular Volume 98.6 fl (82-101); Mean Platelet Volume 10.9 fL (7.4-10.4); Monocytes # 0.7 10^3/uL (0.2-0.9); Monocytes % 7.8 %; Neutrophils % 63.8 %; Nucleated Red Blood Cells % 0 %; Platelet Count 155 10^3/cmm (157-399); Red Blood Count 3.48 10^6/uL (3.85-5.65); Red Cell Distribution Width 18.4 % (12.1-15.1); White Blood Count 8.31 10^3/uL (3.29-11.43)
[2023-03-22 11:49] LABS: Lactic Sepsis W/Reflex 1.8 mmol/L (0.5-2.2)
[2023-03-22] MEDS: sodium chloride 0.9% 1,000 ML 999 ML IV ×2 (11:49→12:38)
[2023-03-22 11:56] LABS: Alanine Aminotransferase 35 U/L (0-41); Albumin Level 3.9 g/dL (3.5-5.2); Alkaline Phosphatase 161 U/L (40-130); Anion Gap 22.4 (5-19); Aspartate Amino Transferase 22 U/L (0-40); Blood Urea Nitrogen 47 mg/dL (6-20); Calcium 8.9 mg/dL (8.5-10.5); Carbon Dioxide 11 mmol/L (22-29); Chloride 105 mmol/L (98-107); Globulin 3.6 g/dL (1.3-4.6); Glomerular Filtration Rate 7.8 mL/min (90-130); Glucose 109 mg/dL (65-115); Magnesium 2.6 mg/dL (1.7-2.3); Osmolality Calculated 289 mOsm/kg (285-295); Potassium 5.4 mmol/L (3.5-5.1); Sodium 133 mmol/L (136-145); Thyroid Stimulating Hormone 0.85 uIU/mL (0.27-4.20); Total Bilirubin 0.4 mg/dL (0.15-1.2); Total Protein 7.5 g/dL (6.6-8.7)
[2023-03-22] MEDS: sodium chloride 0.9% 500 ML 999 ML IV (12:54)
[2023-03-22 13:13] LABS: Glucose Point of Care 223 mg/dL (70-110)
[2023-03-22 13:30] LABS: Uric Acid 5.1 mg/dL (3.4-7.0)
[2023-03-22 13:55] LABS: Add Urine Culture? No; Add Urine Microscopic? YES; Amorphous Sediment Urine 1+ /hpf; Bacteria Urine TRACE /hpf; Bilirubin Urine 2+ (Negative); Blood Urine Neg (Negative); Calcium Oxalate Crystals Urine 15-25 /hpf; Glucose Urine UA Norm (Normal); Ketones Urine Negative (Negative); Leukocyte Esterase Urine Trace (Negative); Nitrate Urine Negative (Negative); Protein Urine Trace (Negative); RBC Urine 0-4 /hpf (0-2); Specific Gravity, Urine 1.025 (1.005-1.030); Squamous Epithelial Cell Urine 0-4 /hpf (0-5); Urine Appearance SL Hazy (CLEAR); Urine Color Amber (Yellow); Urobilinogen Urine 1 mg/dL (Negative); pH Urine 5 (5-7)
[2023-03-22 14:00] LABS: Lactate Dehydrogenase 171 U/L (135-225)
--- NOTE | 2023-03-22 15:47 | P.HP_ITS ---
Providers/Chief Complaint 2 Admitting Physician: Linda Catalan MD Primary Care Provider: Angelic Singh MD Chief Complaint: weakness History of Present Illness Pradip Obrien is a 52 year old male who presented to the emergency room today with significant weakness. He had not been feeling well for couple of days with general weakness and some dizziness with position changes. He had also had some nausea and general malaise. Today he was trying to get up off of the toilet when he became dizzy and lightheaded. He slipped, did not sustain any injury but was unable to get up without significant help. With his recent symptoms and worsening today he presented to the emergency room for further evaluation. He does have CML and is followed by Dr. Zamora. He is on immunotherapy with bosutinib. Last appointment with Dr. Zamora was last week. At that time he was found to have increasing creatinine at 2.2. He followed up with Dr. Singh the following day who stopped his spironolactone and lisinopril. he had been having diarrhea, 5-6 times a day of loose watery stools for some time now. Some element of diarrhea preceded his start of the immunotherapy. He had had diarrhea with other treatments previously. He has also had antibiotics for tooth infection within the last couple of months. When he saw Dr. Jonas last week she checked urine and there was no protein noted. Over the last couple of days he has had decreased urine output. He began having some vomiting today. Workup in the emergency room was remarkable for significant increase in BUN and creatinine from 18/1.8 on February 17, to 27/2.2 on March 17 to 47/7.4 today. No reports of any flank or groin pain. Never had similar renal issues before. Other than immunotherapy, antibiotics and recently held antihypertensive agents no other medication changes recently. Not known to have prostate issues. Given degree of acute renal failure and associated hypotension he is being admitted for further evaluation and treatment. He has already received a couple liters of IV fluid. Review of Systems 2 General: Reports: Other (ROS as per HPI or as otherwise noted here) Const: Denies: fever(s) Card: Reports: lightheadedness and pre-syncope; Denies: chest pain Resp: Reports: dyspnea GI: Denies: hematochezia : Reports: oliguria; Denies: flank pain, difficulty urinating or hematuria Musc: Reports: other ( Denies any injury with events today) Neuro: Reports: weakness in extremities Ranjith/Lymph: Denies: easy bruising or easy bleeding Medications/Allergies Home Medications Medication Instructions Recorded Confirmed Last Taken Type clopidogrel 75 mg tablet 75 mg PO DAILY 01/29/20 03/22/23 03/21/23 History gabapentin 600 mg tablet 600 mg PO TID 01/29/20 03/22/23 03/21/23 History liothyronine 5 mcg tablet 5 mcg PO DAILY 01/29/20 03/22/23 03/21/23 History lisinopril 40 mg tablet 40 mg PO DAILY 01/29/20 03/22/23 03/21/23 History unirah-ohhkmswp-icrcrzg 1 cap PO TID 11/25/21 03/22/23 03/21/23 History 36,000-114,000-180,000 unit capsule,delay rel (Creon) albuterol sulfate 90 mcg/actuation 1 inh inhalation Q4H PRN Shortness 08/11/22 03/22/23 03/21/23 History breath activated powder Of Breath inhaler,sensor (Proair Digihaler) allopurinol 300 mg tablet 300 mg PO DAILY 08/11/22 03/22/23 03/21/23 History dulaglutide 0.75 mg/0.5 mL 0.75 mg SUBCUT .weekly 08/11/22 03/22/23 Unknown History subcutaneous pen injector (Trulicity) bosutinib 500 mg tablet 500 mg PO DAILY #30 tabs 01/06/23 03/22/23 03/21/23 Rx ondansetron HCl 8 mg tablet 8 mg PO Q8H PRN nausea and 01/21/23 03/22/23 Unknown Rx vomiting #30 tabs bupropion HCl 150 mg 24 hr tablet, 150 mg PO QAM #30 tabs 02/02/23 03/22/23 03/21/23 Rx extended release (Wellbutrin XL) sertraline 100 mg tablet (Zoloft) 150 mg (1.5 x 100 mg) PO DAILY #45 02/02/23 03/22/23 03/21/23 Rx tabs atorvastatin 20 mg tablet 20 mg PO DAILY 03/17/23 03/22/23 03/21/23 History spironolactone 25 mg tablet 25 mg PO DAILY 03/17/23 03/22/23 03/21/23 History amlodipine 5 mg tablet 5 mg PO DAILY 03/22/23 03/22/23 03/21/23 History amoxicillin 500 mg capsule 500 mg PO TID 03/22/23 03/22/23 03/21/23 History levothyroxine 175 mcg tablet 175 mcg PO DAILY 03/22/23 03/22/23 03/21/23 History metoprolol tartrate 50 mg tablet 50 mg PO BID 03/22/23 03/22/23 03/21/23 History trazodone 100 mg tablet 200 mg PO BEDTIME insomnia 03/22/23 03/22/23 03/21/23 History Allergies Allergy/AdvReac Type Severity Reaction Status Date / Time No Known Allergies Allergy Verified 03/22/23 11:16 PFSH Acute 2 PFSH: Medical History (Updated 03/22/23 @ 21:00 by Linda Catalan MD) History of cardiovascular stress test 10/2021 normal EKG response to lexiscan; abnormal myocardial perfusion imaging with large sized prior infarct seen in LAD and RCA territory. No significant ischemia seen, LV systolic function is normal. Hypothyroidism Liver cirrhosis secondary to RANGEL Anxiety Depression PTSD (post-traumatic stress disorder) Psychiatric care Gout Dyslipidemia CML (chronic myeloid leukemia) History of myocardial infarction in adulthood Hypertension Diabetes Surgical History (Updated 03/22/23 @ 15:56 by Linda Catalan MD) Status post colonoscopy with polypectomy (03/12/20) Status post colonoscopy with polypectomy x4 and internal hemorrhoids Pathology: Serrated adenoma Recommend follow-up colonoscopy ~03/2025 S/P laparoscopic sleeve gastrectomy History of laparoscopic cholecystectomy History of knee surgery Family History Family/Other Cancer colon cancer Lung disease Grandmother Cancer Mother Hyperlipidemia Hypertension Stroke Other Dementia Denies family history of Diabetes CAD (coronary artery disease) Clotting disorder Psychiatric illness Chronic kidney disease (CKD) Suicide Anesthesia complication Bleeding disorder Social History Smoking and tobacco/nicotine status: current every day tobacco/nicotine user cigarettes Packs smoked per day: 0.50 Years cigarettes smoked: 33 Quit status (tobacco/nicotine): has tried quititng Number of times tried to quit tobacco: 4 Second hand smoke exposure: No Alcohol intake: former Year of sobriety/quit date alcohol: 2011 Substance/Drug Use: never Vitals/I&O/Wt Last Vital Signs Temp 98 F 03/22/23 11:07 Pulse 82 03/22/23 14:30 Resp 20 H 03/22/23 14:30 BP 98/55 03/22/23 14:30 Pulse Ox 94 03/22/23 14:30 O2 Del Method Room Air 03/22/23 11:07 03/22/23 03/22/23 03/22/23 06:59 14:59 22:59 Intake Total 2500 / 2500 Balance 2500 / 2500 Weight last 48 hrs Weight 130.635 kg Physical Exam 2 Narrative: Patient is awake and alert, able to provide history. Looks acutely and chronically ill. Normocephalic. Extraocular movements are intact. Nasopharynx is clear. Oropharynx with fair dentition, dry mucous membranes. Neck is large but supple. Lungs are clear to auscultation bilaterally without any rales rhonchi or wheezes noted. Cardiovascular exam reveals a tachycardic but regular rhythm. Heart sounds are slightly distant. Abdomen is soft, nontender with positive bowel sounds. No flank tenderness noted. Beck catheter is in place. Extremities no pitting edema. Hyperkeratotic skin around toenails particular on the left foot. Capillary refill around 2 to 3 seconds. No mottling. Speech is clear. Face symmetric. Does have faint resting tremor noted. Generally weak but strength is equal x 4. Urinary Catheter Management: Beck: Cath Placed During This Visit: yes Urinary Catheter Date of Insertion: 03/22/23 Urinary Catheter Time of Insertion: 13:14 Data 03/22/23 10:55 03/22/23 10:55 Micro: Microbiology 03/21/23 18:30 Occult Blood (FIT) - Final Stool 03/21/23 18:30 Stool Lactoferrin - Final Stool - Stool Aspirate 03/22/23 12:10 Blood Culture - Preliminary Blood SPECIMEN COLLECTED A&P Assessment and plan (1) Generalized weakness: Multifactorial from progressively worsening renal function, continued diarrhea, hypotension, medication side effects, and the like. Acutely worse today due to acute kidney injury and orthostasis leading to lightheadedness/presyncope culminating in visit to the emergency room. (2) Hypotension: Orthostatic, currently feels secondary to combination of volume losses as well as medication effects from antihypertensive agents in the setting of acute kidney injury. Typically has hypertension and is on amlodipine, metoprolol and recently stopped lisinopril and spironolactone. (3) Acute kidney injury: May be prerenal from volume losses given degree of diarrhea reported but could also be related to bosutinib. I am not sure if that yields an ATN picture or leads to kidney injury via another mechanism. Lisinopril and Aldactone were stopped last week. Hypotension has persisted and is another potential and likely contributor to acute kidney injury. Baseline creatinine prior to starting immunotherapy was 1.4, 1.3. At baseline has at least chronic kidney disease stage II, likely 3A. (4) Chronic myeloid leukemia, BCR/ABL-positive, not having achieved remission: Followed by Dr. Zamora who was updated on presentation today. (5) Anemia: Type currently unknown, normocytic, suspect secondary to progressively worsening renal function over the last couple of weeks at least in part. No reports of any gross blood loss. (6) Diabetes: Type II, byy-svihcce-ndebmfjum, with diabetic neuropathy. Chronically on dulaglutide and gabapentin. Also takes chronic pancreatic enzymes. Qualifiers: Diabetes mellitus complication detail: with polyneuropathy Diabetes mellitus complication status: with neurologic complications Diabetes mellitus terminal superintendent insulin use: without mcc use Diabetes mellitus type: type 2 Qualified Code(s): E11.42 - Type 2 diabetes mellitus with diabetic polyneuropathy (7) Hypothyroidism: Chronically on levothyroxine and liothyronine (8) Depression: And anxiety, chronically on bupropion and sertraline plus trazodone Plan Chronically on Plavix Recent dental abscess/infection treated with antibiotics Diarrhea likely due to medication but recent antibiotic use and immunocompromise from CML makes c diff or other stool infection in differential Hyperlipidemia on statin Gout on allopurinol History of smoking Inpatient admission ICU care initially secondary to hypotension and degree of renal failure IV fluids Beck catheter to monitor urine output Serial labs to monitor renal function If not improving with hydration will consult nephrology Renal ultrasound Hold nephrotoxic medications Patient should not resume bosutinib at discharge secondary to symptoms and presentation per discussion with Dr. Zamora Will check TIBC and stool Hemoccult Hold home amlodipine and continue holding lisinopril/Aldactone Decrease home metoprolol to 12.5 mg p.o. twice daily if blood pressure allows Sliding scale insulin for diabetes currently, hold dulaglutide Check hemoglobin A1c and lipid panel Continue home levothyroxine and liothyronine, TSH was 0.85 Continue home bupropion and sertraline plus a decreased dose of trazodone if needed Continue home statin and Plavix Continue home allopurinol Breathing treatments if needed Stool studies ordered VTE prophylaxis: Subcu heparin GI Prophylaxis: PPI Antibiotics: none currently though recently on antibiotics outpatient for dental infection Pending studies: renal ultrasound, stool Hemoccult, C. difficile, ova and parasites, enteric panel, lactoferrin Telemetry: ordered secondary to renal failure and hypotension Bcek: currently in place secondary to acute kidney injury and need to monitor urine output Line(s): PICC line ordered due to difficulty maintaining access Disposition plan: Home with outpatient follow up to Dr. Zamora and nephrology plus primary care provider anticipated. Will not be resuming bosutinib at discharge. Code Status: Full Code Supportive care otherwise Findings, concerns and plans were discussed with patient and his sister and they were given an opportunity to ask questions Attestations 2 Medical Necessity Statement*: Anticipated stay greater than two midnights in this patient with CML who has developed acute kidney injury and has associated hypotension. Currently requiring IV fluids, close monitoring of urine output and serial labs, along with blood pressure monitoring. Has had rapid worsening of his renal function over the last week and without current inpatient care and intervention at significant risk of more significant morbidity and even mortality. Diagnoses Generalized weakness R53.1 Hypotension I95.9 Acute kidney injury N17.9 Chronic myeloid leukemia, BCR/ABL-positive, not having achieved remission C92.10 Anemia D64.9 Type 2 diabetes mellitus with diabetic polyneuropathy, without long-term current use of insulin E11.42 Diabetes mellitus complication detail: with polyneuropathy Diabetes mellitus complication status: with neurologic complications Diabetes mellitus mcc insulin use: without terminal superintendent use Diabetes mellitus type: type 2 Hypothyroidism E03.9 Depression F32.A
[2023-03-22] MEDS: sodium chloride 0.9% 1,000 ML 100 ML IV (16:36)
--- NOTE | 2023-03-22 16:43 | XRR_ITS ---
PROCEDURE INFORMATION: Exam: XR Chest Exam date and time: 03/22/2023 5:24 PM Age: 52 years old Clinical indication: Device placement; Picc; Additional info: Picc line TECHNIQUE: Imaging protocol: Radiologic exam of the chest. Views: 1 view. COMPARISON: CR XR chest 1V portable [id number] 03/22/2023 11:28 AM FINDINGS: Right-sided PICC tip projects over the mid/distal SVC. XR/XR chest 1V portable [id number] IMPRESSION: As above.
[2023-03-22 17:23] LABS: Glucose Point of Care 113 mg/dL (70-110)
[2023-03-22] MEDS: heparin 5,000 unit/mL INJ 1 mL 5000 UNIT SUBCUT (17:38)
[2023-03-22] MEDS: lipase-protease-amylase Capsule 2 EACH PO (17:38)
--- NOTE | 2023-03-22 18:10 | PC.NURSE ---
REceived patient from ER staff at 1600. Patient is alert to person, place, time, and situation, he moved by himself from ER stretcher to ICU bed. BP: 93/56, HR: 99, SPO2: 95% on room air, Temp: 96.7 axillary.
--- NOTE | 2023-03-22 18:12 | PC.NURSE ---
Shift SUmmary: uneventful shift, has only been in ICU for about 2 hours now. total urine output for shift has been 50mL. IV fluids going at 100mL/ hr for rehydration. PICC line inserted into right upper arm.
[2023-03-22 20:55] LABS: Glucose Point of Care 107 mg/dL (70-110)
[2023-03-22] MEDS: gabapentin 300 mg Capsule 600 MG PO (20:57)
[2023-03-22 21:19] LABS: Anion Gap 19.5 (5-19); Blood Urea Nitrogen 47 mg/dL (6-20); Calcium 8.1 mg/dL (8.5-10.5); Carbon Dioxide 11 mmol/L (22-29); Chloride 108 mmol/L (98-107); Glomerular Filtration Rate 7.8 mL/min (90-130); Glucose 107 mg/dL (65-115); Osmolality Calculated 287 mOsm/kg (285-295); Sodium 132 mmol/L (136-145)
[2023-03-22 21:21] LABS: Potassium 6.5 mmol/L (3.5-5.1)
--- NOTE | 2023-03-22 21:29 | PC.NURSE ---
Consulting Nephrology: New order from Dr. Young to consult nephrology stat when scorer helper and K+ came back critical. Order entered. [facility]-nephrology line called and message left @[id number].
--- NOTE | 2023-03-22 21:35 | PM.CONSULT ---
Providers/Reason For Consult Consulting Physician/Specialty*: [facility]/Nephrology Reason for Consult*: CLYDE Attending Physician: Linda Catalan MD Primary Care Provider: Angelic Singh MD History of Present Illness History of Present Illness Pradip Obrien is a 52 year old male Patient is a 52-year-old male with past medical history of CML, liver cirrhosis secondary to RANGEL, anxiety depression, hypertension and diabetes presented to the emergency department due to generalized weakness associated with dizziness and lightheadedness. Patient follows with oncology for CML Dr. Zamora and is on immunotherapy. Patient reports having worsening diarrhea for the last few days with decreased p.o. intake. His last creatinine was 1.8 in February but now presents with severe CLYDE with a creatinine more than 7 has hyperkalemia and severe metabolic acidosis with a bicarbonate of 11. Review of Systems Narrative: negative Medications/Allergies Home Medications Medication Instructions Recorded Confirmed Last Taken Type clopidogrel 75 mg tablet 75 mg PO DAILY 01/29/20 03/22/23 03/21/23 History gabapentin 600 mg tablet 600 mg PO TID 01/29/20 03/22/23 03/21/23 History liothyronine 5 mcg tablet 5 mcg PO DAILY 01/29/20 03/22/23 03/21/23 History lisinopril 40 mg tablet 40 mg PO DAILY 01/29/20 03/22/23 03/21/23 History dabveg-obyntzgu-mxsrowc 1 cap PO TID 11/25/21 03/22/23 03/21/23 History 36,000-114,000-180,000 unit capsule,delay rel (Creon) albuterol sulfate 90 mcg/actuation 1 inh inhalation Q4H PRN Shortness 08/11/22 03/22/23 03/21/23 History breath activated powder Of Breath inhaler,sensor (Proair Digihaler) allopurinol 300 mg tablet 300 mg PO DAILY 08/11/22 03/22/23 03/21/23 History dulaglutide 0.75 mg/0.5 mL 0.75 mg SUBCUT .weekly 08/11/22 03/22/23 Unknown History subcutaneous pen injector (Trulicity) bosutinib 500 mg tablet 500 mg PO DAILY #30 tabs 01/06/23 03/22/23 03/21/23 Rx ondansetron HCl 8 mg tablet 8 mg PO Q8H PRN nausea and 01/21/23 03/22/23 Unknown Rx vomiting #30 tabs bupropion HCl 150 mg 24 hr tablet, 150 mg PO QAM #30 tabs 02/02/23 03/22/23 03/21/23 Rx extended release (Wellbutrin XL) sertraline 100 mg tablet (Zoloft) 150 mg (1.5 x 100 mg) PO DAILY #45 02/02/23 03/22/23 03/21/23 Rx tabs atorvastatin 20 mg tablet 20 mg PO DAILY 03/17/23 03/22/23 03/21/23 History spironolactone 25 mg tablet 25 mg PO DAILY 03/17/23 03/22/23 03/21/23 History amlodipine 5 mg tablet 5 mg PO DAILY 03/22/23 03/22/23 03/21/23 History amoxicillin 500 mg capsule 500 mg PO TID 03/22/23 03/22/23 03/21/23 History levothyroxine 175 mcg tablet 175 mcg PO DAILY 03/22/23 03/22/23 03/21/23 History metoprolol tartrate 50 mg tablet 50 mg PO BID 03/22/23 03/22/23 03/21/23 History trazodone 100 mg tablet 200 mg PO BEDTIME insomnia 03/22/23 03/22/23 03/21/23 History Allergies Allergy/AdvReac Type Severity Reaction Status Date / Time No Known Allergies Allergy Verified 03/22/23 11:16 Current Medications Generic Name Dose Route Start Last Admin Trade Name Freq PRN Reason Stop Dose Admin Lipase/Protease/Amylase 2 each 03/22/23 18:00 03/22/23 17:38 Ukkzky-Nalfcnji-Slfxdyu Capsule PO 2 each TIDWM WILVER Administration Heparin Sodium (Porcine) 5,000 unit 03/22/23 17:15 03/22/23 17:38 Heparin 5,000 Unit/Ml Inj 1 Ml SUBCUT 5,000 unit Q12H WILVER Administration Insulin Human Lispro 0 unit 03/22/23 21:00 03/22/23 20:59 Insulin Lispro 100 Unit/1 Ml SUBCUT Not Given BEDTIME WILVER Protocol Insulin Human Lispro 0 unit 03/22/23 18:00 03/22/23 18:13 Insulin Lispro 100 Unit/1 Ml SUBCUT Not Given TIDWM [facility] Protocol Metoprolol Tartrate 12.5 mg 03/22/23 21:00 03/22/23 20:59 Metoprolol Tartrate 25 Mg Tablet PO Not Given BID [facility] PFSH Acute PFSH: Medical History (Updated 03/22/23 @ 21:00 by Linda Catalan MD) History of cardiovascular stress test 10/2021 normal EKG response to lexiscan; abnormal myocardial perfusion imaging with large sized prior infarct seen in LAD and RCA territory. No significant ischemia seen, LV systolic function is normal. Hypothyroidism Liver cirrhosis secondary to RANGEL Anxiety Depression PTSD (post-traumatic stress disorder) Psychiatric care Gout Dyslipidemia CML (chronic myeloid leukemia) History of myocardial infarction in adulthood Hypertension Diabetes Surgical History (Updated 03/22/23 @ 15:56 by Linda Catalan MD) Status post colonoscopy with polypectomy (03/12/20) Status post colonoscopy with polypectomy x4 and internal hemorrhoids Pathology: Serrated adenoma Recommend follow-up colonoscopy ~03/2025 S/P laparoscopic sleeve gastrectomy History of laparoscopic cholecystectomy History of knee surgery Family History Family/Other Cancer colon cancer Lung disease Grandmother Cancer Mother Hyperlipidemia Hypertension Stroke Other Dementia Denies family history of Diabetes CAD (coronary artery disease) Clotting disorder Psychiatric illness Chronic kidney disease (CKD) Suicide Anesthesia complication Bleeding disorder Social History Smoking and tobacco/nicotine status: current every day tobacco/nicotine user cigarettes Packs smoked per day: 0.50 Years cigarettes smoked: 33 Quit status (tobacco/nicotine): has tried quititng Number of times tried to quit tobacco: 4 Second hand smoke exposure: No Alcohol intake: former Year of sobriety/quit date alcohol: 2011 Substance/Drug Use: never Vitals/I&O/Wt Last Vital Signs Temp 96.7 F L 03/22/23 18:00 Pulse 85 03/22/23 18:05 Resp 16 03/22/23 18:05 BP 86/63 03/22/23 18:05 Pulse Ox 96 03/22/23 18:05 O2 Del Method Room Air 03/22/23 18:00 03/22/23 03/22/23 03/22/23 06:59 14:59 22:59 Intake Total 2500 / 2500 470 / 2970 Output Total 50 / 50 Balance 2500 / 2500 420 / 2920 Weight last 48 hrs Weight 135.369 kg Weight 130.635 kg Physical Exam Narrative: awake , alert no distress no edema on RA Urinary Catheter Management: Beck: Cath Placed During This Visit: yes Reason for Continuing Indwelling Catheter: Accurate Measurement of Urinary Output in Critically Ill Patients Urinary Catheter Date of Insertion: 03/22/23 Urinary Catheter Time of Insertion: 13:14 Data 03/23/23 05:15 03/23/23 05:15 Micro: Microbiology 03/21/23 18:30 Occult Blood (FIT) - Final Stool 03/21/23 18:30 Stool Lactoferrin - Final Stool - Stool Aspirate 03/22/23 12:10 Blood Culture - Preliminary Blood SPECIMEN COLLECTED A&P Assessment and plan (1) Acute kidney injury: Plan 1. Acute on chronic kidney disease: Baseline creatinine mid 1 range. Now has an CLYDE with creatinine above 7 associated with hyperkalemia and metabolic acidosis, likely from prerenal/ATN in the setting of severe diarrhea and poor p.o. intake. -Placed on bicarbonate drip, will follow-up labs -Avoid nephrotoxins and IV contrast studies -No indication for dialysis 2. Severe metabolic acidosis: Likely from GI losses in the setting of severe diarrhea, on bicarbonate drip, follow-up 3. Hyperkalemia, mild, placed on low K diet 4. History of hypertension, stable 5. History of CML, on immunotherapy Patient evaluated using audiovisual cart. Time spent 40 minutes. Consult Attestations Medical Necessity Statement: per mediicne team Coding Level of Care Code [facility] Diagnoses Acute kidney injury N17.9
[2023-03-22] MEDS: sodium polystyrene sulfonate 15 gm/60 mL Btl PO (21:41)
[2023-03-22] MEDS: calcium gluconate 0.9% NaCL 1 GM/50 ML PREMIX IV ×2 (21:43→22:18)
[2023-03-22] MEDS: citric acid-sodium citrate 30 mL UDC 60 ML PO (21:52)
[2023-03-22] MEDS: sodium bicarbonate 8.4% 1 mEq/mL 50mL Syr 100 MEQ IVP (21:53)
[2023-03-22] MEDS: sodium bicarbonate 150 MEQ in dextrose 5% 1,000 ML IV (22:27)
[2023-03-22] MEDS: insulin regular-human 5 UNIT in SYRINGE 1 EACH 999 UNIT IVP (22:28)
[2023-03-22] MEDS: dextrose 50% syringe 50 mL IVP (22:29)
[2023-03-23] VITALS (48 sets, daily range): BP systolic 91–150; BP diastolic 49–115; PULSE 76–94; RESP 13–19; TEMP 36.8–37.4; O2SAT 90–97
[2023-03-23 00:35] LABS: Anion Gap 20.2 (5-19); Blood Urea Nitrogen 46 mg/dL (6-20); Calcium 8.5 mg/dL (8.5-10.5); Carbon Dioxide 14 mmol/L (22-29); Chloride 109 mmol/L (98-107); Glucose 136 mg/dL (65-115); Osmolality Calculated 300 mOsm/kg (285-295); Potassium 5.2 mmol/L (3.5-5.1); Sodium 138 mmol/L (136-145)
--- NOTE | 2023-03-23 01:03 | PC.NURSE ---
Addendum entered by Ary Clemente RN 03/23/23 01:11: Dr. Harmon called unit @0110. New order to give Kayexalate dose order for 0330 NOW. Original Note: K+ 5.2 Called telenephrology line @0056 to report elevated Potassium- No answer, message left.
[2023-03-23] MEDS: sodium polystyrene sulfonate 15 gm/60 mL Btl PO (01:15)
[2023-03-23] MEDS: heparin 5,000 unit/mL INJ 1 mL 5000 UNIT SUBCUT ×2 (05:22→17:32)
[2023-03-23 05:32] LABS: Basophils % 0.5 %; Eosinophils # 0.2 10^3/uL (0.0-0.8); Eosinophils % 3.9 %; Hematocrit 29.1 % (37-53); Lymphocytes % 23.6 %; Mean Corpuscular HGB Conc 30.9 g/dL (30-55); Mean Corpuscular Hemoglobin 29.6 pg (27-33); Mean Corpuscular Volume 95.7 fl (82-101); Mean Platelet Volume 10.7 fL (7.4-10.4); Monocytes # 0.5 10^3/uL (0.2-0.9); Monocytes % 11.1 %; Neutrophils # 2.68 10^3/uL (1.8-7.7); Neutrophils % 60.7 %; Nucleated Red Blood Cells % 0 %; Platelet Count 119 10^3/cmm (157-399); Red Blood Count 3.04 10^6/uL (3.85-5.65); White Blood Count 4.41 10^3/uL (3.29-11.43)
[2023-03-23 05:48] LABS: Chol HDL Ratio 3.08 mg/dL (1.0-5.00); Cholesterol 80 mg/dL (0-200); HDL Cholesterol 26 mg/dL (60-100); Iron 28 ug/dL (59-158); LDL Cholesterol Calculated 26 mg/dL (50-129); Percent Saturation 14.1 % (20-50); Total Iron Binding Capacity 198 mcg/dl; Triglycerides 140 mg/dL (0-150); Unsaturated Iron Binding 170 ug/dL (112-347)
[2023-03-23 05:53] LABS: Estmated Average Glucose 111; Hemoglobin A1C 5.5 % (4.0-6.0)
[2023-03-23 05:55] LABS: Alanine Aminotransferase 32 U/L (0-41); Albumin Level 3.3 g/dL (3.5-5.2); Alkaline Phosphatase 136 U/L (40-130); Anion Gap 19.7 (5-19); Aspartate Amino Transferase 22 U/L (0-40); Blood Urea Nitrogen 45 mg/dL (6-20); Calcium 8.3 mg/dL (8.5-10.5); Carbon Dioxide 16 mmol/L (22-29); Chloride 109 mmol/L (98-107); Globulin 3.2 g/dL (1.3-4.6); Glomerular Filtration Rate 8.1 mL/min (90-130); Glucose 110 mg/dL (65-115); Magnesium 2.3 mg/dL (1.7-2.3); Osmolality Calculated 302 mOsm/kg (285-295); Phosphorus 5.5 mg/dL (2.5-4.5); Potassium 4.7 mmol/L (3.5-5.1); Sodium 140 mmol/L (136-145); Total Bilirubin 0.3 mg/dL (0.15-1.2); Total Protein 6.5 g/dL (6.6-8.7)
[2023-03-23] MEDS: sodium bicarbonate 150 MEQ in dextrose 5% 1,000 ML IV ×2 (06:08→15:22)
[2023-03-23 07:49] LABS: Glucose Point of Care 113 mg/dL (70-110)
[2023-03-23] MEDS: sertraline 100 mg Tablet 150 MG PO (08:11)
[2023-03-23] MEDS: gabapentin 300 mg Capsule PO ×3 (08:11→20:22)
[2023-03-23] MEDS: clopidogrel 75 mg Tablet PO (08:12)
[2023-03-23] MEDS: atorvastatin 40 mg Tablet 20 MG PO (08:12)
[2023-03-23] MEDS: metoprolol tartrate 25 mg Tablet 12.5 MG PO ×2 (08:12→17:32)
[2023-03-23] MEDS: lipase-protease-amylase Capsule 2 EACH PO ×3 (08:13→17:31)
[2023-03-23] MEDS: pantoprazole DR 40 mg Tablet PO (09:11)
[2023-03-23] MEDS: levothyroxine 175 mcg Tablet PO (09:12)
[2023-03-23] MEDS: liothyronine 5 mcg Tablet PO (09:12)
--- NOTE | 2023-03-23 10:10 | P.PN_ITS ---
Subjective 2 Subjective: feels better continues to have diarrhea Medications: Reviewed: Yes Vitals/I&O/Wt Last Vital Signs Temp 99.3 F 03/23/23 08:00 Pulse 88 03/23/23 09:00 Resp 16 03/23/23 08:10 BP 118/72 03/23/23 09:00 Pulse Ox 95 03/23/23 09:00 O2 Del Method Room Air 03/23/23 08:10 03/22/23 03/23/23 03/23/23 22:59 06:59 14:59 Intake Total 620.05 / 3120.05 1625.0 / 4745.05 Output Total 50 / 50 800 / 850 100 / 100 Balance 570.05 / 3070.05 825.0 / 3895.05 -100 / -100 Weight last 48 hrs Weight 136.441 kg Weight 135.369 kg Weight 130.635 kg Physical Exam 2 Narrative: awake , alert no distress no edema on RA Urinary Catheter Management: Beck: Cath Placed During This Visit: yes Reason for Continuing Indwelling Catheter: Accurate Measurement of Urinary Output in Critically Ill Patients Urinary Catheter Date of Insertion: 03/22/23 Urinary Catheter Time of Insertion: 13:14 Data 03/23/23 05:15 03/23/23 05:15 Micro: Microbiology 03/22/23 21:17 Blood Culture - Preliminary Blood SPECIMEN COLLECTED 03/21/23 18:30 Occult Blood (FIT) - Final Stool 03/21/23 18:30 Stool Lactoferrin - Final Stool - Stool Aspirate 03/22/23 12:10 Blood Culture - Preliminary Blood SPECIMEN COLLECTED A&P Assessment and plan (1) Acute kidney injury: Plan 1. Acute on chronic kidney disease: Baseline creatinine mid 1 range. Now has an CLYDE with creatinine above 7 associated with hyperkalemia and metabolic acidosis, likely from prerenal/ATN in the setting of severe diarrhea and poor p.o. intake. -Placed on bicarbonate drip, will follow-up labs -Avoid nephrotoxins and IV contrast studies -No indication for dialysis 2. Severe metabolic acidosis: Likely from GI losses in the setting of severe diarrhea, on bicarbonate drip, improving 3. Hyperkalemia, resolved 4. History of hypertension, stable 5. History of CML, on immunotherapy Patient evaluated using audiovisual cart. Time spent 40 minutes. Attestations 2 Medical Necessity Statement*: per mediicne Coding Level of Care Code Acute Code for [facility] Diagnoses Acute kidney injury N17.9
[2023-03-23 11:48] LABS: Glucose Point of Care 137 mg/dL (70-110)
[2023-03-23 13:45] LABS: Clostridium Difficile PCR NOT DETECTED (NOT DETECTED)
--- NOTE | 2023-03-23 15:06 | PM.PN ---
Subjective Subjective: No new interim events. Continues to have diarrhea 5-6 episodes. He estimates that his diarrhea has worsened over the last 6 weeks since starting tyrosine kinase inhibitors. C. difficile is pending. Urine output 750 cc last 24 hours. Creatinine continues to be at 7. Continues to be on bicarb infusion. Medications: Reviewed: Yes Vitals/I&O/Wt Last Vital Signs Temp 99.3 F 03/23/23 12:00 Pulse 84 03/23/23 12:00 Resp 16 03/23/23 12:00 BP 112/63 03/23/23 12:00 Pulse Ox 95 03/23/23 12:00 O2 Del Method Room Air 03/23/23 12:00 03/23/23 03/23/23 03/23/23 06:59 14:59 22:59 Intake Total 1625.0 / 4745.05 400 / 400 Output Total 800 / 850 400 / 400 Balance 825.0 / 3895.05 0 / 0 Weight last 48 hrs Weight 136.441 kg Weight 135.369 kg Weight 130.635 kg Physical Exam Narrative: General: No acute distress, AO x3 HEENT: PERRLA, pupils bilaterally equal and reactive, pallors not present Chest: Normal vesicular breath sounds, no added sounds, equal good air entry bilaterally CVS: S1-S2 regular, no murmurs, no tachycardia, no gallops, no rubs Abdomen: Soft, nontender, no organomegaly, bowel sounds present Neuro: No focal deficits, no facial deformity, AO x3, power 5/5 in all limbs Urinary Catheter Management: Beck: Cath Placed During This Visit: yes Reason for Continuing Indwelling Catheter: Accurate Measurement of Urinary Output in Critically Ill Patients Urinary Catheter Date of Insertion: 03/22/23 Urinary Catheter Time of Insertion: 13:14 Data 03/23/23 05:15 03/23/23 05:15 Micro: Microbiology 03/22/23 12:10 Blood Culture - Preliminary Blood NEGATIVE TO DATE 03/22/23 21:17 Blood Culture - Preliminary Blood SPECIMEN COLLECTED 03/21/23 18:30 Occult Blood (FIT) - Final Stool 03/21/23 18:30 Stool Lactoferrin - Final Stool - Stool Aspirate A&P Assessment and plan (1) Generalized weakness: Multifactorial from progressively worsening renal function, continued diarrhea, hypotension, medication side effects, and the like. Acutely worse today due to acute kidney injury and orthostasis leading to lightheadedness/presyncope culminating in visit to the emergency room. (2) Hypotension: Orthostatic, currently feels secondary to combination of volume losses as well as medication effects from antihypertensive agents in the setting of acute kidney injury. Typically has hypertension and is on amlodipine, metoprolol and recently stopped lisinopril and spironolactone. (3) Acute kidney injury: May be prerenal from volume losses given degree of diarrhea reported but could also be related to bosutinib. I am not sure if that yields an ATN picture or leads to kidney injury via another mechanism. Lisinopril and Aldactone were stopped last week. Hypotension has persisted and is another potential and likely contributor to acute kidney injury. Baseline creatinine prior to starting immunotherapy was 1.4, 1.3. At baseline has at least chronic kidney disease stage II, likely 3A. (4) Chronic myeloid leukemia, BCR/ABL-positive, not having achieved remission: Followed by Dr. Zamora who was updated on presentation today. (5) Anemia: Type currently unknown, normocytic, suspect secondary to progressively worsening renal function over the last couple of weeks at least in part. No reports of any gross blood loss. (6) Diabetes: Type II, [id number], with diabetic neuropathy. Chronically on dulaglutide and gabapentin. Also takes chronic pancreatic enzymes. Qualifiers: Diabetes mellitus type: type 2 Diabetes mellitus shelter insulin use: without shelter use Diabetes mellitus complication status: with neurologic complications Diabetes mellitus complication detail: with polyneuropathy Qualified Code(s): E11.42 - Type 2 diabetes mellitus with diabetic polyneuropathy (7) Hypothyroidism: Chronically on levothyroxine and liothyronine (8) Depression: And anxiety, chronically on bupropion and sertraline plus trazodone Plan Chronically on Plavix Recent dental abscess/infection treated with antibiotics Diarrhea likely due to medication but recent antibiotic use and immunocompromise from CML makes c diff or other stool infection in differential Hyperlipidemia on statin Gout on allopurinol History of smoking Inpatient admission ICU care initially secondary to hypotension and degree of renal failure IV fluids Beck catheter to monitor urine output Serial labs to monitor renal function If not improving with hydration will consult nephrology Renal ultrasound Hold nephrotoxic medications Patient should not resume bosutinib at discharge secondary to symptoms and presentation per discussion with Dr. Zamora Will check TIBC and stool Hemoccult Hold home amlodipine and continue holding lisinopril/Aldactone Decrease home metoprolol to 12.5 mg p.o. twice daily if blood pressure allows Sliding scale insulin for diabetes currently, hold dulaglutide Check hemoglobin A1c and lipid panel Continue home levothyroxine and liothyronine, TSH was 0.85 Continue home bupropion and sertraline plus a decreased dose of trazodone if needed Continue home statin and Plavix Continue home allopurinol Breathing treatments if needed Stool studies ordered VTE prophylaxis: Subcu heparin GI Prophylaxis: PPI Antibiotics: none currently though recently on antibiotics outpatient for dental infection Pending studies: renal ultrasound, stool Hemoccult, C. difficile, ova and parasites, enteric panel, lactoferrin Telemetry: ordered secondary to renal failure and hypotension Beck: currently in place secondary to acute kidney injury and need to monitor urine output Line(s): PICC line ordered due to difficulty maintaining access Disposition plan: Home with outpatient follow up to Dr. Zamora and nephrology plus primary care provider anticipated. Will not be resuming bosutinib at discharge. Code Status: Full Code Supportive care otherwise Findings, concerns and plans were discussed with patient and his sister and they were given an opportunity to ask questions Plan for today: Continue to trend creatinine. Pending C. difficile. If negative can start trial of loperamide. Urine output now 750 cc. Continue bicarb infusion. No current indication for hemodialysis. Attestations Medical Necessity Statement*: Continued admission for CLYDE, need to trend creatinine, pending stool studies as above. 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
[2023-03-23 16:58] LABS: Glucose Point of Care 123 mg/dL (70-110)
--- NOTE | 2023-03-23 18:41 | PC.NURSE ---
SHift SUmmary: uneventful shift. Patient has rested in bed throughout the day. Plans to get up to recliner after dinner when recliner is available. 2 small bowel movements. total urine output has been 600mL.
[2023-03-23 20:18] LABS: Glucose Point of Care 143 mg/dL (70-110)
[2023-03-23] MEDS: insulin lispro 100 unit/1 mL SUBCUT (20:22)
--- NOTE | 2023-03-23 20:22 | US_ITS ---
WS: [id number] RENAL ULTRASOUND HISTORY: acute renal failure COMPARISON: 06/18/2014 TECHNIQUE: 2-D and color Doppler imaging of the kidney submitted. Right kidney: 10.2 cm x 5.2 cm x 4.8 cm. Cortex: 1.3 cm Normal echogenicity with no hydronephrosis or mass. Left kidney: 10.2 cm x 4.9 cm x 5.0 cm. Cortex: 1.6 cm Normal echogenicity with no hydronephrosis or mass. Aorta: Normal. Urinary Bladder: Nondistended. Beck catheter present. IMPRESSION: Normal renal ultrasound. Similar to the prior study from 2014.
[2023-03-23] MEDS: loperamide 2 mg Capsule 4 MG PO (21:24)
[2023-03-23] MEDS: acetaminophen 325 mg Tablet 650 MG PO (21:26)
[2023-03-24] VITALS (25 sets, daily range): BP systolic 114–157; BP diastolic 60–93; PULSE 69–80; RESP 15–16; TEMP 36.8–37.1; O2SAT 91–98
[2023-03-24] MEDS: sodium bicarbonate 150 MEQ in dextrose 5% 1,000 ML IV ×2 (00:05→08:33)
[2023-03-24] MEDS: heparin 5,000 unit/mL INJ 1 mL 5000 UNIT SUBCUT ×2 (04:42→17:15)
[2023-03-24 05:08] LABS: Eosinophils # 0.3 10^3/uL (0.0-0.8); Eosinophils % 6.9 %; Hematocrit 26.6 % (37-53); Lymphocytes # 1.5 10^3/uL (0.8-4.8); Lymphocytes % 37.1 %; Mean Corpuscular HGB Conc 31.2 g/dL (30-55); Mean Corpuscular Hemoglobin 29.4 pg (27-33); Mean Corpuscular Volume 94.3 fl (82-101); Mean Platelet Volume 10.6 fL (7.4-10.4); Monocytes # 0.4 10^3/uL (0.2-0.9); Monocytes % 9.7 %; Neutrophils # 1.82 10^3/uL (1.8-7.7); Neutrophils % 45.1 %; Nucleated Red Blood Cells % 0 %; Platelet Count 115 10^3/cmm (157-399); Red Blood Count 2.82 10^6/uL (3.85-5.65); Red Cell Distribution Width 17.2 % (12.1-15.1); White Blood Count 4.04 10^3/uL (3.29-11.43)
[2023-03-24 05:35] LABS: Anion Gap 13.9 (5-19); Blood Urea Nitrogen 39 mg/dL (6-20); Calcium 7.5 mg/dL (8.5-10.5); Carbon Dioxide 26 mmol/L (22-29); Chloride 102 mmol/L (98-107); Glomerular Filtration Rate 13.1 mL/min (90-130); Glucose 103 mg/dL (65-115); Osmolality Calculated 296 mOsm/kg (285-295); Potassium 3.9 mmol/L (3.5-5.1); Sodium 138 mmol/L (136-145)
[2023-03-24 07:53] LABS: Glucose Point of Care 100 mg/dL (70-110)
[2023-03-24] MEDS: atorvastatin 40 mg Tablet 20 MG PO (08:15)
[2023-03-24] MEDS: lipase-protease-amylase Capsule 2 EACH PO ×3 (08:19→17:12)
[2023-03-24] MEDS: sertraline 100 mg Tablet 150 MG PO (08:19)
[2023-03-24] MEDS: pantoprazole DR 40 mg Tablet PO (08:23)
[2023-03-24] MEDS: levothyroxine 175 mcg Tablet PO (08:23)
[2023-03-24] MEDS: metoprolol tartrate 25 mg Tablet 12.5 MG PO ×2 (08:24→17:13)
[2023-03-24] MEDS: gabapentin 300 mg Capsule PO ×3 (08:24→21:12)
[2023-03-24] MEDS: clopidogrel 75 mg Tablet PO (08:25)
[2023-03-24] MEDS: liothyronine 5 mcg Tablet PO (08:25)
--- NOTE | 2023-03-24 08:52 | P.PN_ITS ---
Subjective 2 Subjective: doing well Medications: Reviewed: Yes Vitals/I&O/Wt Last Vital Signs Temp 98.4 F 03/24/23 04:00 Pulse 80 03/24/23 08:02 Resp 16 03/24/23 08:02 BP 133/72 03/24/23 08:00 Pulse Ox 96 03/24/23 08:02 O2 Del Method Room Air 03/24/23 08:02 03/23/23 03/24/23 03/24/23 22:59 06:59 14:59 Intake Total 2065 / 3615 1027.5 / 4642.5 997.5 / 997.5 Output Total 200 / 600 850 / 1450 Balance 1865 / 3015 177.5 / 3192.5 997.5 / 997.5 Weight last 48 hrs Weight 145.059 kg Weight 136.441 kg Weight 135.369 kg Weight 130.635 kg Physical Exam 2 Narrative: awake , alert no distress no edema on RA Urinary Catheter Management: Beck: Cath Placed During This Visit: yes Reason for Continuing Indwelling Catheter: Accurate Measurement of Urinary Output in Critically Ill Patients Urinary Catheter Date of Insertion: 03/22/23 Urinary Catheter Time of Insertion: 13:14 Data 03/24/23 04:38 03/24/23 04:38 Micro: Microbiology 03/22/23 21:17 Blood Culture - Preliminary Blood NEGATIVE TO DATE 03/22/23 12:10 Blood Culture - Preliminary Blood NEGATIVE TO DATE A&P Assessment and plan (1) Acute kidney injury: Plan 1. Acute on chronic kidney disease: Baseline creatinine mid 1 range. Now has an CLYDE with creatinine above 7 associated with hyperkalemia and metabolic acidosis, likely from prerenal/ATN in the setting of severe diarrhea and poor p.o. intake. -DC bicarbonate drip, , Cr improving -Avoid nephrotoxins and IV contrast studies -No indication for dialysis 2. Severe metabolic acidosis: Likely from GI losses in the setting of severe diarrhea, on bicarbonate drip, improving 3. Hyperkalemia, resolved 4. History of hypertension, stable 5. History of CML, on immunotherapy Patient evaluated using audiovisual cart. Time spent 20 minutes. Attestations 2 Medical Necessity Statement*: per medicine team Coding Level of Care Code Acute Code for [facility] Diagnoses Acute kidney injury N17.9
[2023-03-24 11:36] LABS: Glucose Point of Care 95 mg/dL (70-110)
--- NOTE | 2023-03-24 13:44 | PM.PN ---
Subjective Subjective: Creatinine improving to 4.7 today. Urine output of 1200 cc. No new complaints today. Off bicarb drip. Bicarb now normal at 26. Diarrhea is resolved today. Restarted loperamide after C. difficile PCR came back negative overnight. Medications: Reviewed: Yes Vitals/I&O/Wt Last Vital Signs Temp 98.4 F 03/24/23 04:00 Pulse 78 03/24/23 10:00 Resp 16 03/24/23 08:02 BP 129/70 03/24/23 10:00 Pulse Ox 95 03/24/23 10:00 O2 Del Method Room Air 03/24/23 08:02 03/23/23 03/24/23 03/24/23 22:59 06:59 14:59 Intake Total 2065 / 3615 1027.5 / 4642.5 997.5 / 997.5 Output Total 200 / 600 850 / 1450 Balance 1865 / 3015 177.5 / 3192.5 997.5 / 997.5 Weight last 48 hrs Weight 145.059 kg Weight 136.441 kg Weight 135.369 kg Physical Exam Narrative: General: No acute distress, AO x3 HEENT: PERRLA, pupils bilaterally equal and reactive, pallors not present Chest: Normal vesicular breath sounds, no added sounds, equal good air entry bilaterally CVS: S1-S2 regular, no murmurs, no tachycardia, no gallops, no rubs Abdomen: Soft, nontender, no organomegaly, bowel sounds present Neuro: No focal deficits, no facial deformity, AO x3, power 5/5 in all limbs Urinary Catheter Management: Beck: Cath Placed During This Visit: yes Reason for Continuing Indwelling Catheter: Accurate Measurement of Urinary Output in Critically Ill Patients Urinary Catheter Date of Insertion: 03/22/23 Urinary Catheter Time of Insertion: 13:14 Data 03/24/23 04:38 03/24/23 04:38 Micro: Microbiology 03/22/23 21:17 Blood Culture - Preliminary Blood NEGATIVE TO DATE 03/22/23 12:10 Blood Culture - Preliminary Blood NEGATIVE TO DATE A&P Assessment and plan (1) Generalized weakness: Multifactorial from progressively worsening renal function, continued diarrhea, hypotension, medication side effects, and the like. Acutely worse today due to acute kidney injury and orthostasis leading to lightheadedness/presyncope culminating in visit to the emergency room. (2) Hypotension: Orthostatic, currently feels secondary to combination of volume losses as well as medication effects from antihypertensive agents in the setting of acute kidney injury. Typically has hypertension and is on amlodipine, metoprolol and recently stopped lisinopril and spironolactone. (3) Acute kidney injury: May be prerenal from volume losses given degree of diarrhea reported but could also be related to bosutinib. I am not sure if that yields an ATN picture or leads to kidney injury via another mechanism. Lisinopril and Aldactone were stopped last week. Hypotension has persisted and is another potential and likely contributor to acute kidney injury. Baseline creatinine prior to starting immunotherapy was 1.4, 1.3. At baseline has at least chronic kidney disease stage II, likely 3A. (4) Chronic myeloid leukemia, BCR/ABL-positive, not having achieved remission: Followed by Dr. Zamora who was updated on presentation today. (5) Anemia: Type currently unknown, normocytic, suspect secondary to progressively worsening renal function over the last couple of weeks at least in part. No reports of any gross blood loss. (6) Diabetes: Type II, [id number], with diabetic neuropathy. Chronically on dulaglutide and gabapentin. Also takes chronic pancreatic enzymes. 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 Diabetes mellitus complication status: with neurologic complications Diabetes mellitus complication detail: with polyneuropathy Qualified Code(s): E11.42 - Type 2 diabetes mellitus with diabetic polyneuropathy (7) Hypothyroidism: Chronically on levothyroxine and liothyronine (8) Depression: And anxiety, chronically on bupropion and sertraline plus trazodone Plan Chronically on Plavix Recent dental abscess/infection treated with antibiotics Diarrhea likely due to medication but recent antibiotic use and immunocompromise from CML makes c diff or other stool infection in differential Hyperlipidemia on statin Gout on allopurinol History of smoking Inpatient admission ICU care initially secondary to hypotension and degree of renal failure IV fluids Beck catheter to monitor urine output Serial labs to monitor renal function If not improving with hydration will consult nephrology Renal ultrasound Hold nephrotoxic medications Patient should not resume bosutinib at discharge secondary to symptoms and presentation per discussion with Dr. Zamora Will check TIBC and stool Hemoccult Hold home amlodipine and continue holding lisinopril/Aldactone Decrease home metoprolol to 12.5 mg p.o. twice daily if blood pressure allows Sliding scale insulin for diabetes currently, hold dulaglutide Check hemoglobin A1c and lipid panel Continue home levothyroxine and liothyronine, TSH was 0.85 Continue home bupropion and sertraline plus a decreased dose of trazodone if needed Continue home statin and Plavix Continue home allopurinol Breathing treatments if needed Stool studies ordered VTE prophylaxis: Subcu heparin GI Prophylaxis: PPI Antibiotics: none currently though recently on antibiotics outpatient for dental infection Pending studies: renal ultrasound, stool Hemoccult, C. difficile, ova and parasites, enteric panel, lactoferrin Telemetry: ordered secondary to renal failure and hypotension Beck: currently in place secondary to acute kidney injury and need to monitor urine output Line(s): PICC line ordered due to difficulty maintaining access Disposition plan: Home with outpatient follow up to Dr. Zamora and nephrology plus primary care provider anticipated. Will not be resuming bosutinib at discharge. Code Status: Full Code Supportive care otherwise Findings, concerns and plans were discussed with patient and his sister and they were given an opportunity to ask questions Plan for today: Continue to trend creatinine. Pending C. difficile. If negative can start trial of loperamide. Urine output now 750 cc. Continue bicarb infusion. No current indication for hemodialysis. Plan for today March 24, 2023. Creatinine is improving today. Bicarb infusion stopped. Bicarb normalized. C. difficile negative. Started loperamide. Diarrhea is resolving today. Continue to trend creatinine over next 24 hours. If continues to improve and has good urine output can likely be discharged home. Will discuss with his primary oncologist if okay with resuming Bositnib at discharge. Wheezing left lung to auscultation today- has a h/o recative airway disease- duoneb inhalation prn . Transfer out of ICU Attestations Medical Necessity Statement*: Monitor cr and urine output next 24 hrs, transfer out of ICU Coding Level of Care Code Acute Code for Chg Fwd Moderate MDM includes number and complexity of problems actively addressed during encounter, amount and/or complexity of data reviewed/ordered and described risk of complication, morbidity or mortality of management as documented Diagnoses Generalized weakness R53.1 Hypotension I95.9 Acute kidney injury N17.9 Chronic myeloid leukemia, BCR/ABL-positive, not having achieved remission C92.10 Anemia D64.9 Type 2 diabetes mellitus with diabetic polyneuropathy, without long-term current use of insulin E11.42 Diabetes mellitus type: type 2 Diabetes mellitus intermediate insulin use: without intermediate use Diabetes mellitus complication status: with neurologic complications Diabetes mellitus complication detail: with polyneuropathy Hypothyroidism E03.9 Depression F32.A
[2023-03-24] MEDS: ipratropium-albuterol 3 mL Neb INHALATION (14:17)
[2023-03-24 16:52] LABS: Glucose Point of Care 95 mg/dL (70-110)
[2023-03-24 20:29] LABS: Glucose Point of Care 106 mg/dL (70-110)
[2023-03-25 04:00] VITALS: BP 127/57; PULSE 75; RESP 16; TEMP 37; O2SAT 91
[2023-03-25 05:39] LABS: Basophils % 0.9 %; Eosinophils # 0.3 10^3/uL (0.0-0.8); Eosinophils % 7.1 %; Hematocrit 28.1 % (37-53); Lymphocytes # 1.3 10^3/uL (0.8-4.8); Lymphocytes % 27.6 %; Mean Corpuscular Volume 93.7 fl (82-101); Mean Platelet Volume 10.8 fL (7.4-10.4); Monocytes # 0.4 10^3/uL (0.2-0.9); Monocytes % 8.8 %; Neutrophils # 2.51 10^3/uL (1.8-7.7); Neutrophils % 55.4 %; Nucleated Red Blood Cells % 0 %; Platelet Count 132 10^3/cmm (157-399); Red Cell Distribution Width 16.6 % (12.1-15.1); White Blood Count 4.53 10^3/uL (3.29-11.43)
[2023-03-25 06:00] LABS: Alanine Aminotransferase 27 U/L (0-41); Albumin Level 3.3 g/dL (3.5-5.2); Alkaline Phosphatase 127 U/L (40-130); Anion Gap 16.5 (5-19); Aspartate Amino Transferase 21 U/L (0-40); Blood Urea Nitrogen 31 mg/dL (6-20); Calcium 7.9 mg/dL (8.5-10.5); Carbon Dioxide 26 mmol/L (22-29); Chloride 101 mmol/L (98-107); Globulin 3.2 g/dL (1.3-4.6); Glomerular Filtration Rate 20.4 mL/min (90-130); Glucose 77 mg/dL (65-115); Osmolality Calculated 293 mOsm/kg (285-295); Potassium 4.5 mmol/L (3.5-5.1); Sodium 139 mmol/L (136-145); Total Bilirubin 0.4 mg/dL (0.15-1.2); Total Protein 6.5 g/dL (6.6-8.7)
[2023-03-25] MEDS: heparin 5,000 unit/mL INJ 1 mL 5000 UNIT SUBCUT (06:19)
[2023-03-25 07:28] LABS: Glucose Point of Care 88 mg/dL (70-110)
[2023-03-25 07:54] VITALS: BP 141/78; PULSE 77; RESP 18; TEMP 36.8; O2SAT 93
[2023-03-25] MEDS: clopidogrel 75 mg Tablet PO (08:05)
[2023-03-25] MEDS: liothyronine 5 mcg Tablet PO (08:06)
[2023-03-25] MEDS: sertraline 100 mg Tablet 150 MG PO (08:06)
[2023-03-25] MEDS: atorvastatin 40 mg Tablet 20 MG PO (08:06)
[2023-03-25] MEDS: gabapentin 300 mg Capsule PO (08:06)
[2023-03-25] MEDS: pantoprazole DR 40 mg Tablet PO (08:07)
[2023-03-25] MEDS: metoprolol tartrate 25 mg Tablet 12.5 MG PO (08:07)
[2023-03-25] MEDS: levothyroxine 175 mcg Tablet PO (08:08)
[2023-03-25] MEDS: lipase-protease-amylase Capsule 2 EACH PO ×2 (08:14→13:02)
[2023-03-25 09:05] VITALS: PULSE 71; RESP 16; O2SAT 96
[2023-03-25 11:38] LABS: Glucose Point of Care 115 mg/dL (70-110)
[2023-03-25 12:00] VITALS: BP 158/90; PULSE 74; RESP 16; TEMP 36.9; O2SAT 93
--- NOTE | 2023-03-25 14:00 | PM.DCS ---
Discharge Providers Date of Admission: 03/22/23 12:46 Date of Discharge: March 25, 2023 Attending Provider at Admission: Linda Catalan MD Attending Provider at Discharge: Sanjana Weldon MD Primary Care Provider: Angelic Mojica MD Diagnoses at Discharge Discharge Diagnosis (1) Generalized weakness: Status: Acute (2) Hypotension: Status: Acute (3) Acute kidney injury: Status: Acute (4) Chronic myeloid leukemia, BCR/ABL-positive, not having achieved remission: Status: Acute (5) Anemia: Status: Acute (6) Diabetes: Status: Acute Qualifiers: Diabetes mellitus type: type 2 Diabetes mellitus senior care insulin use: without senior care use Diabetes mellitus complication status: with neurologic complications Diabetes mellitus complication detail: with polyneuropathy Qualified Code(s): E11.42 - Type 2 diabetes mellitus with diabetic polyneuropathy (7) Hypothyroidism: Status: Acute (8) Depression: Status: Chronic Reason for Visit Reason for Visit: weakness Brief History: Taken from H&P: Pradip Obrien is a 52 year old male who presented to the emergency room today with significant weakness. He had not been feeling well for couple of days with general weakness and some dizziness with position changes. He had also had some nausea and general malaise. Today he was trying to get up off of the toilet when he became dizzy and lightheaded. He slipped, did not sustain any injury but was unable to get up without significant help. With his recent symptoms and worsening today he presented to the emergency room for further evaluation. He does have CML and is followed by Dr. Zamora. He is on immunotherapy with bosutinib. Last appointment with Dr. Zamora was last week. At that time he was found to have increasing creatinine at 2.2. He followed up with Dr. Mojica the following day who stopped his spironolactone and lisinopril. he had been having diarrhea, 5-6 times a day of loose watery stools for some time now. Some element of diarrhea preceded his start of the immunotherapy. He had had diarrhea with other treatments previously. Hospital Course Hospital Course Mr. Arteaga was admitted to the hospital in view of acute kidney injury. His creatinine was found to be at 7.4 and he was anuric. His baseline creatinine is between 1.3-1.4. He also had evidence of metabolic acidosis and hyperkalemia related to this acute kidney injury. Nephrology was consulted. Overall impression was that of prerenal CLYDE likely related to volume loss from severe diarrhea and hypotension. He had orthostatic hypotension upon admission initially. He received IV hydration, sodium bicarbonate infusion following which metabolic acidosis corrected. His creatinine is currently improved from 7.4-3.2 today. He is making more than 1 L of urine in a 24-hour timeframe. He did not need initiation of dialysis. Hyperkalemia corrected with usual treatment. At the time of discharge, home doses of lisinopril, spironolactone have been discontinued. Metoprolol has been dose adjusted down to 25 mg p.o. twice daily due to orthostatic hypotension. Gabapentin has been reduced from 600 3 times daily to 300 3 times daily due to impaired renal function. This may be titrated up once kidney function improves. Patient is no longer taking amoxicillin and this medication is discontinued as well. His extensive diarrhea was thought to be related to Bosutinib. Discussed case with Dr. Zamora. Recommended to discontinue treatment with this medication. He is to follow-up with oncology within 1 week to discuss alternative treatment regimens. His diarrhea is now improved at the time of discharge. He tested negative for C. difficile. Loperamide as needed has been added to his regimen. He is currently passing flatus, has no abdominal discomfort. He is eager to return home. Instructed to get a follow-up creatinine check on Wednesday with primary care physician. Physical Exam Narrative: General: No acute distress, AO x3 HEENT: PERRLA, pupils bilaterally equal and reactive, pallors not present Chest: Normal vesicular breath sounds, no added sounds, equal good air entry bilaterally CVS: S1-S2 regular, no murmurs, no tachycardia, no gallops, no rubs Abdomen: Soft, nontender, no organomegaly, bowel sounds present Neuro: No focal deficits, no facial deformity, AO x3, power 5/5 in all limbs Urinary Catheter Management: Beck: Cath Placed During This Visit: yes, but has since been removed by the nurse Reason for Continuing Indwelling Catheter: Decision to DC Catheter Urinary Catheter Date of Insertion: 03/22/23 Urinary Catheter Time of Insertion: 13:14 Date Urinary Catheter Removed: 03/25/23 Time Urinary Catheter Discontinued: 11:33 Discharge Data Studies Completed and Pending Completed Studies During Hospitalization Category Date Time Status CT head wo con* [id number] Stat Cat Scan 03/22/23 11:13 Completed XR chest 1V portable [id number] Routine Exams 03/22/23 16:43 Completed XR chest 1V portable [id number] Stat Exams 03/22/23 11:13 Completed US renal BI* [id number] Routine Ultrasound 03/23/23 20:22 Completed Pending at discharge Category Date Time Status Blood Culture Stat Lab 03/22/23 21:17 Results OVA and Parasites, Conc and PE Routine Lab 03/22/23 13:49 Received Salmonella / Shigella / Campy Routine Lab 03/22/23 13:49 Received Radiology Impressions Head CT 03/22/23 11:13 IMPRESSION: No acute intracranial abnormality. Chest X-Ray 03/22/23 16:43 IMPRESSION: As above. Laboratory Results WBC 4.53 10^3/uL (3.29-11.43) 03/25/23 05:05 RBC 3.00 10^6/uL (3.85-5.65) L 03/25/23 05:05 Hgb 8.70 g/dL (11.27-16.99) L 03/25/23 05:05 Hct 28.1 % (37-53) L 03/25/23 05:05 MCV 93.7 fl (82-101) 03/25/23 05:05 MCH 29.0 pg (27-33) 03/25/23 05:05 MCHC 31.0 g/dL (30-55) 03/25/23 05:05 RDW 16.6 % (12.1-15.1) H 03/25/23 05:05 Plt Count 132 10^3/cmm (157-399) L 03/25/23 05:05 MPV 10.8 fL (7.4-10.4) H 03/25/23 05:05 Neut % (Auto) 55.4 % 03/25/23 05:05 Lymph % (Auto) 27.6 % 03/25/23 05:05 [place] % (Auto) 8.8 % 03/25/23 05:05 Eos % (Auto) 7.1 % 03/25/23 05:05 Baso % (Auto) 0.9 % 03/25/23 05:05 Neut # (Auto) 2.51 10^3/uL (1.8-7.7) 03/25/23 05:05 Lymph # (Auto) 1.3 10^3/uL (0.8-4.8) 03/25/23 05:05 [place] # (Auto) 0.4 10^3/uL (0.2-0.9) 03/25/23 05:05 Eos # (Auto) 0.3 10^3/uL (0.0-0.8) 03/25/23 05:05 Baso # (Auto) 0.0 10^3/uL (0.0-0.1) 03/25/23 05:05 Nucleated RBC % (auto) 0 % 03/25/23 05:05 Nucleated RBCs # 0.0 /100WBC 03/25/23 05:05 PT 14.50 SECONDS (12.1-14.9) 03/22/23 10:55 INR 1.10 (0.8-1.2) 03/22/23 10:55 Sodium 139 mmol/L (136-145) 03/25/23 05:05 Potassium 4.5 mmol/L (3.5-5.1) 03/25/23 05:05 Chloride 101 mmol/L (98-107) 03/25/23 05:05 Carbon Dioxide 26 mmol/L (22-29) 03/25/23 05:05 Anion Gap 16.5 (5-19) 03/25/23 05:05 BUN 31 mg/dL (6-20) H 03/25/23 05:05 Creatinine 3.2 mg/dL (0.7-1.2) H 03/25/23 05:05 GFR Calculation 20.4 mL/min (90-130) L 03/25/23 05:05 Glucose 77 mg/dL (65-115) 03/25/23 05:05 POC Glucose 115 mg/dL (70-110) H 03/25/23 11:10 Estimat Average Glucose 111 03/23/23 05:15 Hemoglobin A1c 5.5 % (4.0-6.0) 03/23/23 05:15 Calculated Osmolality 293 mOsm/kg (285-295) 03/25/23 05:05 Lactic Acid 1.8 mmol/L (0.5-2.2) 03/22/23 10:55 Uric Acid 5.1 mg/dL (3.4-7.0) 03/22/23 10:55 Calcium 7.9 mg/dL (8.5-10.5) L 03/25/23 05:05 Phosphorus 5.5 mg/dL (2.5-4.5) H 03/23/23 05:15 Magnesium 2.3 mg/dL (1.7-2.3) 03/23/23 05:15 Iron 28 ug/dL (59-158) L 03/23/23 05:15 TIBC 198 mcg/dl 03/23/23 05:15 % Saturation 14.1 % (20-50) L 03/23/23 05:15 Unsat Iron Binding 170 ug/dL (112-347) 03/23/23 05:15 Total Bilirubin 0.4 mg/dL (0.15-1.2) 03/25/23 05:05 AST 21 U/L (0-40) 03/25/23 05:05 ALT 27 U/L (0-41) 03/25/23 05:05 Alkaline Phosphatase 127 U/L (40-130) 03/25/23 05:05 Lactate Dehydrogenase 171 U/L (135-225) 03/22/23 10:55 Total Protein 6.5 g/dL (6.6-8.7) L 03/25/23 05:05 Albumin 3.3 g/dL (3.5-5.2) L 03/25/23 05:05 Globulin 3.2 g/dL (1.3-4.6) 03/25/23 05:05 Triglycerides 140 mg/dL (0-150) 03/23/23 05:15 Cholesterol 80 mg/dL (0-200) 03/23/23 05:15 LDL Cholesterol, Calc 26 mg/dL (50-129) L 03/23/23 05:15 HDL Cholesterol 26 mg/dL (60-100) L 03/23/23 05:15 LDL/HDL Ratio 1.00 RATIO (0.00-3.22) 03/23/23 05:15 Cholesterol/HDL Ratio 3.08 mg/dL (1.0-5.00) 03/23/23 05:15 TSH 0.85 uIU/mL (0.27-4.20) 03/22/23 10:55 Urine Color Angela (Yellow) 03/22/23 13:04 Urine Appearance Sl hazy (CLEAR) A 03/22/23 13:04 Urine pH 5 (5-7) 03/22/23 13:04 Ur Specific [place] 1.025 (1.005-1.030) 03/22/23 13:04 Urine Protein Trace (Negative) 03/22/23 13:04 Urine Glucose (UA) Norm (Normal) 03/22/23 13:04 Urine Ketones Negative (Negative) 03/22/23 13:04 Urine Blood Neg (Negative) 03/22/23 13:04 Urine Nitrate Negative (Negative) 03/22/23 13:04 Urine Bilirubin 2+ (Negative) H 03/22/23 13:04 Urine Urobilinogen 1 mg/dL (Negative) H 03/22/23 13:04 Ur Leukocyte Esterase Trace (Negative) H 03/22/23 13:04 Urine RBC 0-4 /hpf (0-2) H 03/22/23 13:04 Urine WBC 5-10 /hpf (0-5) H 03/22/23 13:04 Ur Squamous Epith Cells 0-4 /hpf (0-5) H 03/22/23 13:04 Calcium Oxalate Crystal 15-25 /hpf H 03/22/23 13:04 Amorphous Sediment 1+ /hpf 03/22/23 13:04 Urine Bacteria Trace /hpf (NONE) 03/22/23 13:04 C. difficile Tox (PCR) Not detected (NOT DETECTED) 03/21/23 18:30 Vitals Last Vital Signs Temp 98.4 F 03/25/23 12:00 Pulse 74 03/25/23 12:00 Resp 16 03/25/23 12:00 BP 158/90 03/25/23 12:00 Pulse Ox 93 03/25/23 12:00 O2 Del Method Room Air 03/25/23 09:05 Discharge Plan Discharge Patient Disposition: Home Condition: Stable Prescriptions: New loperamide 2 mg Capsule 2 mg PO Q8H PRN (Reason: Diarrhea) 30 Days Qty: 30 0RF Continued clopidogrel 75 mg tablet 75 mg PO DAILY liothyronine 5 mcg tablet 5 mcg PO DAILY Proair Digihaler 90 mcg/actuation aero powdr breath act w/sensor 1 inh inhalation Q4H PRN (Reason: Shortness Of Breath) Creon 36,000-114,000- 180,000 unit capsule,delayed release(DR/EC) 1 cap PO TID Rx Instructions: administer with meals and/or snacks Trulicity 0.75 mg/0.5 mL pen injector 0.75 mg SUBCUT .weekly ondansetron HCl 8 mg tablet 8 mg PO Q8H PRN (Reason: nausea and vomiting) Qty: 30 1RF bupropion HCl [Wellbutrin XL] 150 mg tablet extended release 24 hr 150 mg PO QAM Qty: 30 2RF sertraline [Zoloft] 100 mg tablet 150 mg PO DAILY Qty: 45 2RF atorvastatin 20 mg tablet 20 mg PO DAILY levothyroxine 175 mcg tablet 175 mcg PO DAILY amlodipine 5 mg tablet 5 mg PO DAILY trazodone 100 mg tablet 200 mg PO BEDTIME Changed gabapentin 600 mg tablet 300 mg PO TID 30 Days Qty: 30 0RF allopurinol 300 mg tablet 100 mg PO DAILY 30 Days Qty: 0 0RF metoprolol tartrate 50 mg tablet 25 mg PO BID 30 Days Qty: 30 0RF Discontinued lisinopril 40 mg tablet 40 mg PO DAILY spironolactone 25 mg tablet 25 mg PO DAILY bosutinib 500 mg tablet 500 mg PO DAILY Qty: 30 11RF Rx Instructions: must administer with a meal/food amoxicillin 500 mg capsule 500 mg PO TID Discharge Orders: Discharge Order (Routine); Ordered 03/25/23 Ordered By: Sanjana Weldon Other Ambulatory Orders: Comprehensive Metabolic Panel (Routine) Timeframe: [id number] Facility: [facility] - Location: Lab - Main Lab Ordered By: Sanjana Weldon Referrals: Angelic Mojica MD [Primary Care Provider] - 04/01/23 11:15 am (APPOINTMENT WILL BE WITH BARBI MATTA DUE TO DR MOJICA BEING OVER BOOKED ) Fabricio Zamora MD [Hospitalist] - 1 week (to be seen in one week per Dr. Zamora ) Discharge Diet: Usual diet Discharge Activity: Resume usual activity Patient Instructions: Opioid Safety Discharge Attestations Time Spent in Discharge Care*: greater than 30 min Quality Metrics Clinical Quality Measures [ No reported AMI, CVA or VTE this stay] Coding Level of Care Code Acute Code for Chg Fwd Diagnoses Generalized weakness R53.1 Hypotension I95.9 Acute kidney injury N17.9 Chronic myeloid leukemia, BCR/ABL-positive, not having achieved remission C92.10 Anemia D64.9 Type 2 diabetes mellitus with diabetic polyneuropathy, without long-term current use of insulin E11.42 Diabetes mellitus type: type 2 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
--- NOTE | 2023-03-25 15:18 | PM.PN ---
Subjective Subjective: fells well Medications: Reviewed: Yes Vitals/I&O/Wt Last Vital Signs Temp 98.4 F 03/25/23 12:00 Pulse 74 03/25/23 12:00 Resp 16 03/25/23 12:00 BP 158/90 03/25/23 12:00 Pulse Ox 93 03/25/23 12:00 O2 Del Method Room Air 03/25/23 09:05 03/25/23 03/25/23 03/25/23 06:59 14:59 22:59 Intake Total 240 / 240 Output Total 650 / 1150 Balance -650 / 2697.5 240 / 240 Weight last 48 hrs Weight 139.706 kg Weight 145.059 kg Physical Exam Narrative: awake , alert no distress no edema on RA Urinary Catheter Management: Beck: Cath Placed During This Visit: yes, but has since been removed by the nurse Reason for Continuing Indwelling Catheter: Decision to DC Catheter Urinary Catheter Date of Insertion: 03/22/23 Urinary Catheter Time of Insertion: 13:14 Date Urinary Catheter Removed: 03/25/23 Time Urinary Catheter Discontinued: 11:33 Data 03/25/23 05:05 03/25/23 05:05 A&P Assessment and plan (1) Acute kidney injury: Plan 1. Acute on chronic kidney disease: Baseline creatinine mid 1 range. Now has an CLYDE with creatinine above 7 associated with hyperkalemia and metabolic acidosis, likely from prerenal/ATN in the setting of severe diarrhea and poor p.o. intake. -s/p bicarbonate drip, , Cr improving -Avoid nephrotoxins and IV contrast studies 2. Severe metabolic acidosis: Likely from GI losses in the setting of severe diarrhea, improved 4. History of hypertension, stable 5. History of CML, on immunotherapy Patient evaluated using audiovisual cart. Time spent 20 minutes. Attestations Medical Necessity Statement*: per [facility] team Coding Level of Care Code Acute Code for [facility] Fwd Diagnoses Acute kidney injury N17.9
[2023-03-25 15:41] VITALS: BP 158/90; PULSE 74; RESP 16; TEMP 36.9; O2SAT 93
== END 2023-03-25 14:00 | disposition home or self-care (01) | DRG 683 ==
LOC: ER 11:31 → ER IP 13:15 → ICU 14:42 → MEDSURG 03-24 20:12
PROVIDERS: Hospitalist; Internal Medicine; Admitting Provider Hospitalist; Emergency Provider Emergency Medicine; PCP Internal Medicine; Visit Provider Student in an Organized Health Care Education/Training Program
DX: N17.9 Acute kidney failure, unspecified (principal); C92.10 Chronic myeloid leukemia, BCR/ABL-positive, not having achieved remission; E87.20 Acidosis, unspecified; K52.1 Toxic gastroenteritis and colitis; E86.0 Dehydration; I95.1 Orthostatic hypotension; E87.5 Hyperkalemia; K75.81 Nonalcoholic steatohepatitis (NASH); K74.69 Other cirrhosis of liver; F41.9 Anxiety disorder, unspecified; F32.A Depression, unspecified; F43.10 Post-traumatic stress disorder, unspecified; M10.9 Gout, unspecified; E78.5 Hyperlipidemia, unspecified; I25.2 Old myocardial infarction; F17.210 Nicotine dependence, cigarettes, uncomplicated; E03.9 Hypothyroidism, unspecified; I12.9 Hypertensive chronic kidney disease with stage 1 through stage 4 chronic kidney disease, or unspecified chronic kidney disease; E11.22 Type 2 diabetes mellitus with diabetic chronic kidney disease; N18.31 Chronic kidney disease, stage 3a; D63.1 Anemia in chronic kidney disease; T45.1X5A Adverse effect of antineoplastic and immunosuppressive drugs, initial encounter; E11.42 Type 2 diabetes mellitus with diabetic polyneuropathy
CPT/HCPCS: 36415; 36416; 36573; 36592; 51702; 70450; 71045; 76770; 80048; 80053; 80061; 81001; 82274; 82962; 83036; 83540; 83550; 83605; 83615; 83630; 83735; 84100; 84443; 84550; 85025; 85610; 87040; 87045; 87177; 87209; 87427; 87449; 87493; 93005; 94640; 96360; 96361; 96372; 96376; 97165; 97535; 99285; J0610; J1644; J1815; J7030; J7040; J7070; Q3014

== ENCOUNTER 2023-03-31 07:31 | Oncology outpatient (recurring) (ONCR) | payer MEDICAID, SELFPAY ==
[2023-03-31 08:03] LABS: Basophils # 0.1 10^3/uL (0.0-0.1); Basophils % 1.2 %; Eosinophils # 0.4 10^3/uL (0.0-0.8); Eosinophils % 6.3 %; Hematocrit 32.1 % (37-53); Lymphocytes # 1.5 10^3/uL (0.8-4.8); Lymphocytes % 22.6 %; Mean Corpuscular HGB Conc 30.2 g/dL (30-55); Mean Corpuscular Hemoglobin 29.5 pg (27-33); Mean Corpuscular Volume 97.6 fl (82-101); Monocytes # 0.5 10^3/uL (0.2-0.9); Monocytes % 7.6 %; Neutrophils # 3.99 10^3/uL (1.8-7.7); Neutrophils % 61.8 %; Nucleated Red Blood Cells % 0 %; Platelet Count 186 10^3/cmm (157-399); Red Blood Count 3.29 10^6/uL (3.85-5.65); Red Cell Distribution Width 16.1 % (12.1-15.1); White Blood Count 6.46 10^3/uL (3.29-11.43)
[2023-03-31 08:25] LABS: Alanine Aminotransferase 22 U/L (0-41); Albumin Level 3.6 g/dL (3.5-5.2); Alkaline Phosphatase 125 U/L (40-130); Aspartate Amino Transferase 19 U/L (0-40); Blood Urea Nitrogen 11 mg/dL (6-20); Calcium 8.8 mg/dL (8.5-10.5); Carbon Dioxide 22 mmol/L (22-29); Chloride 105 mmol/L (98-107); Globulin 3.7 g/dL (1.3-4.6); Glomerular Filtration Rate 33.2 mL/min (90-130); Glucose 85 mg/dL (65-115); Osmolality Calculated 285 mOsm/kg (285-295); Sodium 138 mmol/L (136-145); Total Bilirubin 0.5 mg/dL (0.15-1.2); Total Protein 7.3 g/dL (6.6-8.7)
[2023-03-31 08:30] LABS: Creatinine Clr Calc Pharmacy 52.4472
== END 2023-04-15 23:59 | disposition home or self-care (01) ==
PROVIDERS: Internal Medicine Medical Oncology; PCP Internal Medicine; Visit Provider Nurse Practitioner Family
DX: C92.10 Chronic myeloid leukemia, BCR/ABL-positive, not having achieved remission (principal); F17.210 Nicotine dependence, cigarettes, uncomplicated; Z79.899 Other long term (current) drug therapy; R97.8 Other abnormal tumor markers
CPT/HCPCS: 36415; 80053; 85025; 99214

== ENCOUNTER 2023-05-13 14:45 | Oncology outpatient (recurring) (ONCR) | payer MEDICAID, SELFPAY ==
[2023-05-06 15:35] LABS: Basophils # 0.1 10^3/uL (0.0-0.1); Basophils % 0.9 %; Eosinophils # 0.3 10^3/uL (0.0-0.8); Hematocrit 41.4 % (37-53); Lymphocytes # 1.2 10^3/uL (0.8-4.8); Lymphocytes % 20.7 %; Mean Corpuscular HGB Conc 30.4 g/dL (30-55); Mean Corpuscular Hemoglobin 28.3 pg (27-33); Mean Corpuscular Volume 92.8 fl (82-101); Mean Platelet Volume 9.7 fL (7.4-10.4); Monocytes # 0.4 10^3/uL (0.2-0.9); Monocytes % 6.2 %; Nucleated Red Blood Cells % 0 %; Platelet Count 185 10^3/cmm (157-399); Red Blood Count 4.46 10^6/uL (3.85-5.65); Red Cell Distribution Width 14.6 % (12.1-15.1); White Blood Count 5.81 10^3/uL (3.29-11.43)
[2023-05-06 16:06] LABS: Alanine Aminotransferase 22 U/L (0-41); Albumin Level 3.9 g/dL (3.5-5.2); Alkaline Phosphatase 146 U/L (40-130); Anion Gap 14.8 (5-19); Aspartate Amino Transferase 23 U/L (0-40); Blood Urea Nitrogen 18 mg/dL (6-20); Calcium 8.8 mg/dL (8.5-10.5); Carbon Dioxide 23 mmol/L (22-29); Chloride 108 mmol/L (98-107); Globulin 3.4 g/dL (1.3-4.6); Glucose 131 mg/dL (65-115); Osmolality Calculated 296 mOsm/kg (285-295); Potassium 4.8 mmol/L (3.5-5.1); Sodium 141 mmol/L (136-145); Total Bilirubin 0.3 mg/dL (0.15-1.2); Total Protein 7.3 g/dL (6.6-8.7)
[2023-05-06 16:07] LABS: Albumin Level 3.9 g/dL (3.5-5.2); Anion Gap 12.7 (5-19); Blood Urea Nitrogen 17 mg/dL (6-20); Calcium 8.8 mg/dL (8.5-10.5); Carbon Dioxide 23 mmol/L (22-29); Chloride 108 mmol/L (98-107); Glucose 126 mg/dL (65-115); Phosphorus 2.4 mg/dL (2.5-4.5); Potassium 4.7 mmol/L (3.5-5.1); Sodium 139 mmol/L (136-145)
[2023-05-06 16:08] LABS: Calcium 8.8 mg/dL (8.5-10.5)
[2023-05-06 16:12] LABS: Parathyroid Hormone 81.5 pg/mL (15-65)
[2023-05-06 16:21] LABS: 25 Hydroxy Vitamin D 47 ng/mL (30-100)
[2023-05-06 16:30] LABS: Urine Creatinine 269 mg/dL (39-259)
[2023-05-06 16:33] LABS: UPRO/UCREAT Ratio 0.17 mg/mg CR; Urine Protein Random 47 mg/dL
[2023-05-13 14:44] LABS: Basophils # 0.1 10^3/uL (0.0-0.1); Eosinophils # 0.4 10^3/uL (0.0-0.8); Eosinophils % 4.5 %; Hematocrit 41.5 % (37-53); Lymphocytes # 2.3 10^3/uL (0.8-4.8); Lymphocytes % 24.8 %; Mean Corpuscular HGB Conc 30.8 g/dL (30-55); Mean Corpuscular Hemoglobin 28.1 pg (27-33); Mean Corpuscular Volume 91.2 fl (82-101); Mean Platelet Volume 9.6 fL (7.4-10.4); Monocytes # 0.6 10^3/uL (0.2-0.9); Monocytes % 6.3 %; Neutrophils % 63.2 %; Nucleated Red Blood Cells % 0 %; Platelet Count 212 10^3/cmm (157-399); Red Blood Count 4.55 10^6/uL (3.85-5.65); Red Cell Distribution Width 14.6 % (12.1-15.1); White Blood Count 9.17 10^3/uL (3.29-11.43)
[2023-05-13 15:01] LABS: Anion Gap 15.1 (5-19); Blood Urea Nitrogen 21 mg/dL (6-20); Calcium 9.1 mg/dL (8.5-10.5); Carbon Dioxide 22 mmol/L (22-29); Chloride 107 mmol/L (98-107); Glomerular Filtration Rate 39.7 mL/min (90-130); Glucose 133 mg/dL (65-115); Osmolality Calculated 293 mOsm/kg (285-295); Potassium 5.1 mmol/L (3.5-5.1); Sodium 139 mmol/L (136-145)
== END 2023-05-16 23:59 | disposition home or self-care (01) ==
PROVIDERS: Internal Medicine; Internal Medicine Medical Oncology; PCP Internal Medicine; Visit Provider Nurse Practitioner Family
DX: Z53.9 Procedure and treatment not carried out, unspecified reason (principal); C92.10 Chronic myeloid leukemia, BCR/ABL-positive, not having achieved remission
CPT/HCPCS: 36415; 80048; 80053; 80069; 82306; 82310; 82570; 83970; 84156; 85025

== ENCOUNTER 2023-06-11 09:00 | Oncology outpatient (recurring) (ONCR) | payer MEDICAID, SELFPAY ==
[2023-05-20 14:28] LABS: Basophils # 0.1 10^3/uL (0.0-0.1); Eosinophils # 0.4 10^3/uL (0.0-0.8); Hematocrit 39.9 % (37-53); Lymphocytes # 1.8 10^3/uL (0.8-4.8); Lymphocytes % 24.9 %; Mean Corpuscular HGB Conc 31.1 g/dL (30-55); Mean Corpuscular Hemoglobin 27.9 pg (27-33); Mean Corpuscular Volume 89.9 fl (82-101); Mean Platelet Volume 9.5 fL (7.4-10.4); Monocytes # 0.4 10^3/uL (0.2-0.9); Monocytes % 5.7 %; Neutrophils # 4.63 10^3/uL (1.8-7.7); Neutrophils % 63.1 %; Nucleated Red Blood Cells % 0 %; Platelet Count 182 10^3/cmm (157-399); Red Blood Count 4.44 10^6/uL (3.85-5.65); Red Cell Distribution Width 14.7 % (12.1-15.1); White Blood Count 7.34 10^3/uL (3.29-11.43)
[2023-05-20 14:46] LABS: Anion Gap 14.5 (5-19); Blood Urea Nitrogen 20 mg/dL (6-20); Calcium 9.2 mg/dL (8.5-10.5); Carbon Dioxide 23 mmol/L (22-29); Chloride 106 mmol/L (98-107); Glucose 141 mg/dL (65-115); Osmolality Calculated 293 mOsm/kg (285-295); Potassium 4.5 mmol/L (3.5-5.1); Sodium 139 mmol/L (136-145)
[2023-05-27 13:23] LABS: Basophils # 0.1 10^3/uL (0.0-0.1); Eosinophils # 0.3 10^3/uL (0.0-0.8); Hematocrit 39.9 % (37-53); Lymphocytes # 1.7 10^3/uL (0.8-4.8); Lymphocytes % 24.6 %; Mean Corpuscular HGB Conc 30.3 g/dL (30-55); Mean Corpuscular Hemoglobin 27.5 pg (27-33); Mean Corpuscular Volume 90.7 fl (82-101); Mean Platelet Volume 9.2 fL (7.4-10.4); Monocytes # 0.4 10^3/uL (0.2-0.9); Monocytes % 5.5 %; Neutrophils # 4.33 10^3/uL (1.8-7.7); Neutrophils % 64.5 %; Nucleated Red Blood Cells % 0 %; Platelet Count 167 10^3/cmm (157-399); Red Cell Distribution Width 14.9 % (12.1-15.1); White Blood Count 6.72 10^3/uL (3.29-11.43)
[2023-05-27 13:39] LABS: Anion Gap 13.8 (5-19); Blood Urea Nitrogen 16 mg/dL (6-20); Calcium 8.9 mg/dL (8.5-10.5); Carbon Dioxide 23 mmol/L (22-29); Chloride 107 mmol/L (98-107); Glucose 113 mg/dL (65-115); Osmolality Calculated 290 mOsm/kg (285-295); Potassium 4.8 mmol/L (3.5-5.1); Sodium 139 mmol/L (136-145)
[2023-06-11 09:02] LABS: Basophils # 0.1 10^3/uL (0.0-0.1); Basophils % 1.1 %; Eosinophils # 0.3 10^3/uL (0.0-0.8); Hematocrit 40.7 % (37-53); Lymphocytes % 27.1 %; Mean Corpuscular HGB Conc 30.7 g/dL (30-55); Mean Corpuscular Hemoglobin 27.8 pg (27-33); Mean Corpuscular Volume 90.6 fl (82-101); Mean Platelet Volume 10.1 fL (7.4-10.4); Monocytes # 0.4 10^3/uL (0.2-0.9); Monocytes % 5.7 %; Neutrophils # 4.58 10^3/uL (1.8-7.7); Neutrophils % 61.8 %; Nucleated Red Blood Cells % 0 %; Platelet Count 196 10^3/cmm (157-399); Red Blood Count 4.49 10^6/uL (3.85-5.65); Red Cell Distribution Width 15.1 % (12.1-15.1); White Blood Count 7.41 10^3/uL (3.29-11.43)
[2023-06-11 09:18] LABS: Alanine Aminotransferase 19 U/L (0-41); Albumin Level 3.8 g/dL (3.5-5.2); Alkaline Phosphatase 154 U/L (40-130); Anion Gap 13.7 (5-19); Aspartate Amino Transferase 18 U/L (0-40); Blood Urea Nitrogen 14 mg/dL (6-20); Calcium 8.4 mg/dL (8.5-10.5); Carbon Dioxide 23 mmol/L (22-29); Chloride 107 mmol/L (98-107); Globulin 3.4 g/dL (1.3-4.6); Glomerular Filtration Rate 42.4 mL/min (90-130); Glucose 147 mg/dL (65-115); Lactate Dehydrogenase 155 U/L (135-225); Osmolality Calculated 291 mOsm/kg (285-295); Potassium 4.7 mmol/L (3.5-5.1); Sodium 139 mmol/L (136-145); Total Bilirubin 0.2 mg/dL (0.15-1.2); Total Protein 7.2 g/dL (6.6-8.7)
[2023-06-17 00:44] LABS: BCR ABL1 (IS) 0.191 (0.000); P210 BCR ALB1 DETECTED; P210 BCR ALB1 Yes Test Yes; Prior Results NG; Source blood
== END 2023-06-15 23:59 | disposition home or self-care (01) ==
PROVIDERS: Internal Medicine; Internal Medicine Medical Oncology; PCP Internal Medicine; Visit Provider Nurse Practitioner Family
DX: Z53.9 Procedure and treatment not carried out, unspecified reason (principal); C92.10 Chronic myeloid leukemia, BCR/ABL-positive, not having achieved remission; F17.210 Nicotine dependence, cigarettes, uncomplicated
CPT/HCPCS: 36415; 80048; 80053; 81206; 83615; 85025; 99214

== ENCOUNTER 2023-07-09 10:00 | Oncology outpatient (recurring) (ONCR) | payer MEDICAID, SELFPAY ==
[2023-06-18 10:07] LABS: Basophils # 0.1 10^3/uL (0.0-0.1); Basophils % 1.1 %; Eosinophils # 0.4 10^3/uL (0.0-0.8); Hematocrit 40.8 % (37-53); Lymphocytes # 2.1 10^3/uL (0.8-4.8); Lymphocytes % 30.1 %; Mean Corpuscular HGB Conc 30.6 g/dL (30-55); Mean Corpuscular Hemoglobin 27.2 pg (27-33); Mean Corpuscular Volume 88.7 fl (82-101); Mean Platelet Volume 9.9 fL (7.4-10.4); Monocytes # 0.5 10^3/uL (0.2-0.9); Monocytes % 6.5 %; Neutrophils # 4.03 10^3/uL (1.8-7.7); Nucleated Red Blood Cells % 0 %; Platelet Count 182 10^3/cmm (157-399); Red Cell Distribution Width 15.1 % (12.1-15.1); White Blood Count 7.07 10^3/uL (3.29-11.43)
[2023-06-18 10:27] LABS: Alanine Aminotransferase 18 U/L (0-41); Albumin Level 3.9 g/dL (3.5-5.2); Alkaline Phosphatase 153 U/L (40-130); Anion Gap 14.3 (5-19); Aspartate Amino Transferase 17 U/L (0-40); Blood Urea Nitrogen 17 mg/dL (6-20); Calcium 8.7 mg/dL (8.5-10.5); Carbon Dioxide 25 mmol/L (22-29); Chloride 107 mmol/L (98-107); Globulin 3.5 g/dL (1.3-4.6); Glomerular Filtration Rate 42.4 mL/min (90-130); Glucose 159 mg/dL (65-115); Osmolality Calculated 299 mOsm/kg (285-295); Potassium 4.3 mmol/L (3.5-5.1); Sodium 142 mmol/L (136-145); Total Bilirubin 0.2 mg/dL (0.15-1.2); Total Protein 7.4 g/dL (6.6-8.7)
[2023-06-25 09:54] LABS: Basophils # 0.1 10^3/uL (0.0-0.1); Basophils % 1.2 %; Eosinophils # 0.4 10^3/uL (0.0-0.8); Hematocrit 39.3 % (37-53); Lymphocytes % 31.1 %; Mean Corpuscular Hemoglobin 27.2 pg (27-33); Mean Corpuscular Volume 87.7 fl (82-101); Mean Platelet Volume 9.5 fL (7.4-10.4); Monocytes # 0.4 10^3/uL (0.2-0.9); Monocytes % 6.7 %; Neutrophils # 3.57 10^3/uL (1.8-7.7); Neutrophils % 54.5 %; Nucleated Red Blood Cells % 0 %; Platelet Count 169 10^3/cmm (157-399); Red Blood Count 4.48 10^6/uL (3.85-5.65); Red Cell Distribution Width 15.4 % (12.1-15.1); White Blood Count 6.55 10^3/uL (3.29-11.43)
[2023-06-25 10:15] LABS: Alanine Aminotransferase 19 U/L (0-41); Albumin Level 3.8 g/dL (3.5-5.2); Alkaline Phosphatase 147 U/L (40-130); Anion Gap 13.5 (5-19); Aspartate Amino Transferase 18 U/L (0-40); Blood Urea Nitrogen 24 mg/dL (6-20); Calcium 8.8 mg/dL (8.5-10.5); Carbon Dioxide 22 mmol/L (22-29); Chloride 108 mmol/L (98-107); Globulin 3.6 g/dL (1.3-4.6); Glucose 109 mg/dL (65-115); Osmolality Calculated 293 mOsm/kg (285-295); Potassium 4.5 mmol/L (3.5-5.1); Sodium 139 mmol/L (136-145); Total Bilirubin 0.3 mg/dL (0.15-1.2); Total Protein 7.4 g/dL (6.6-8.7)
[2023-07-02 10:53] LABS: Basophils # 0.1 10^3/uL (0.0-0.1); Basophils % 1.1 %; Eosinophils # 0.4 10^3/uL (0.0-0.8); Eosinophils % 5.5 %; Hematocrit 38.4 % (37-53); Lymphocytes # 1.5 10^3/uL (0.8-4.8); Lymphocytes % 23.3 %; Mean Corpuscular Hemoglobin 27.1 pg (27-33); Mean Corpuscular Volume 87.5 fl (82-101); Monocytes # 0.4 10^3/uL (0.2-0.9); Monocytes % 6.7 %; Neutrophils # 4.15 10^3/uL (1.8-7.7); Neutrophils % 62.9 %; Nucleated Red Blood Cells % 0 %; Platelet Count 171 10^3/cmm (157-399); Red Blood Count 4.39 10^6/uL (3.85-5.65); Red Cell Distribution Width 15.9 % (12.1-15.1); White Blood Count 6.58 10^3/uL (3.29-11.43)
[2023-07-02 11:09] LABS: Alanine Aminotransferase 19 U/L (0-41); Albumin Level 3.8 g/dL (3.5-5.2); Alkaline Phosphatase 156 U/L (40-130); Anion Gap 15.2 (5-19); Aspartate Amino Transferase 22 U/L (0-40); Blood Urea Nitrogen 15 mg/dL (6-20); Calcium 8.9 mg/dL (8.5-10.5); Carbon Dioxide 19 mmol/L (22-29); Chloride 108 mmol/L (98-107); Globulin 3.4 g/dL (1.3-4.6); Glomerular Filtration Rate 45.4 mL/min (90-130); Glucose 144 mg/dL (65-115); Osmolality Calculated 289 mOsm/kg (285-295); Potassium 4.2 mmol/L (3.5-5.1); Sodium 138 mmol/L (136-145); Total Bilirubin 0.2 mg/dL (0.15-1.2); Total Protein 7.2 g/dL (6.6-8.7)
== END 2023-07-16 23:59 | disposition home or self-care (01) ==
PROVIDERS: PCP Internal Medicine; Visit Provider Nurse Practitioner Family
DX: Z53.9 Procedure and treatment not carried out, unspecified reason (principal)
CPT/HCPCS: 36415; 80053; 85025

== ENCOUNTER 2023-08-04 14:36 | Oncology outpatient (recurring) (ONCR) | payer MEDICAID, SELFPAY ==
[2023-07-26 15:16] LABS: Basophils # 0.1 10^3/uL (0.0-0.1); Eosinophils # 0.3 10^3/uL (0.0-0.8); Eosinophils % 4.6 %; Hematocrit 40.8 % (37-53); Lymphocytes # 1.5 10^3/uL (0.8-4.8); Lymphocytes % 24.6 %; Mean Corpuscular HGB Conc 31.1 g/dL (30-55); Mean Corpuscular Hemoglobin 26.9 pg (27-33); Mean Corpuscular Volume 86.4 fl (82-101); Mean Platelet Volume 10.1 fL (7.4-10.4); Monocytes # 0.3 10^3/uL (0.2-0.9); Monocytes % 5.5 %; Neutrophils # 3.88 10^3/uL (1.8-7.7); Neutrophils % 64.1 %; Nucleated Red Blood Cells % 0 %; Platelet Count 173 10^3/cmm (157-399); Red Blood Count 4.72 10^6/uL (3.85-5.65); Red Cell Distribution Width 17.2 % (12.1-15.1); White Blood Count 6.05 10^3/uL (3.29-11.43)
[2023-07-26 15:36] LABS: Alanine Aminotransferase 20 U/L (0-41); Albumin Level 4.3 g/dL (3.5-5.2); Alkaline Phosphatase 153 U/L (40-130); Anion Gap 12.5 (5-19); Aspartate Amino Transferase 17 U/L (0-40); Blood Urea Nitrogen 17 mg/dL (6-20); Calcium 9.1 mg/dL (8.5-10.5); Carbon Dioxide 22 mmol/L (22-29); Chloride 106 mmol/L (98-107); Globulin 3.5 g/dL (1.3-4.6); Glomerular Filtration Rate 45.4 mL/min (90-130); Glucose 125 mg/dL (65-115); Lactate Dehydrogenase 130 U/L (135-225); Osmolality Calculated 285 mOsm/kg (285-295); Phosphorus 2.6 mg/dL (2.5-4.5); Potassium 4.5 mmol/L (3.5-5.1); Sodium 136 mmol/L (136-145); Total Bilirubin 0.3 mg/dL (0.15-1.2); Total Protein 7.8 g/dL (6.6-8.7)
[2023-07-26 16:07] LABS: Urine Creatinine 325 mg/dL (39-259)
[2023-07-26 16:09] LABS: UPRO/UCREAT Ratio 0.14 mg/mg CR; Urine Protein Random 45 mg/dL
[2023-07-26 19:42] LABS: Parathyroid Hormone 99.5 pg/mL (15-65)
[2023-08-02 10:29] LABS: BCR ABL1 (IS) 0.029 (0.000); P210 BCR ALB1 DETECTED; P210 BCR ALB1 Yes Test Yes; Prior Results BLOOD; Source blood
== END 2023-08-15 23:59 | disposition home or self-care (01) ==
PROVIDERS: Internal Medicine; PCP Internal Medicine; Visit Provider Nurse Practitioner Family
DX: C92.10 Chronic myeloid leukemia, BCR/ABL-positive, not having achieved remission
CPT/HCPCS: 36415; 80053; 80069; 81206; 82310; 82570; 83615; 83970; 84156; 85025; 99214

== ENCOUNTER 2023-10-06 11:46 | Oncology outpatient (recurring) (ONCR) | payer MEDICAID, SELFPAY ==
[2023-10-06 12:30] LABS: Basophils # 0.1 10^3/uL (0.0-0.1); Basophils % 0.8 %; Eosinophils # 0.3 10^3/uL (0.0-0.8); Eosinophils % 5.1 %; Hematocrit 36.2 % (37-53); Lymphocytes # 1.7 10^3/uL (0.8-4.8); Lymphocytes % 26.8 %; Mean Corpuscular HGB Conc 30.7 g/dL (30-55); Mean Corpuscular Hemoglobin 27.5 pg (27-33); Mean Corpuscular Volume 89.6 fl (82-101); Mean Platelet Volume 9.7 fL (7.4-10.4); Monocytes # 0.4 10^3/uL (0.2-0.9); Monocytes % 6.2 %; Neutrophils # 3.83 10^3/uL (1.8-7.7); Neutrophils % 60.9 %; Nucleated Red Blood Cells % 0 %; Platelet Count 143 10^3/cmm (157-399); Red Blood Count 4.04 10^6/uL (3.85-5.65); Red Cell Distribution Width 18.5 % (12.1-15.1); White Blood Count 6.28 10^3/uL (3.29-11.43)
[2023-10-06 12:48] LABS: Alanine Aminotransferase 18 U/L (0-41); Albumin Level 3.9 g/dL (3.5-5.2); Alkaline Phosphatase 153 U/L (40-130); Anion Gap 13.8 (5-19); Aspartate Amino Transferase 17 U/L (0-40); Blood Urea Nitrogen 19 mg/dL (6-20); Calcium 8.5 mg/dL (8.5-10.5); Carbon Dioxide 19 mmol/L (22-29); Chloride 112 mmol/L (98-107); Globulin 3.4 g/dL (1.3-4.6); Glomerular Filtration Rate 42.4 mL/min (90-130); Glucose 107 mg/dL (65-115); Lactate Dehydrogenase 150 U/L (135-225); Osmolality Calculated 291 mOsm/kg (285-295); Potassium 5.8 mmol/L (3.5-5.1); Sodium 139 mmol/L (136-145); Total Bilirubin 0.3 mg/dL (0.15-1.2); Total Protein 7.3 g/dL (6.6-8.7)
[2023-10-11 10:34] LABS: P210 BCR ALB1 NOT DETECTED; P210 BCR ALB1 Yes Test Yes; Prior Results NG; Source blood
== END 2023-10-16 23:55 | disposition home or self-care (01) ==
PROVIDERS: Internal Medicine Medical Oncology; PCP Internal Medicine; Visit Provider Nurse Practitioner Family
DX: Z53.9 Procedure and treatment not carried out, unspecified reason (principal); C92.10 Chronic myeloid leukemia, BCR/ABL-positive, not having achieved remission; N18.32 Chronic kidney disease, stage 3b
CPT/HCPCS: 36415; 80053; 81206; 83615; 85025; 99214

== ENCOUNTER 2023-11-12 08:42 | Oncology outpatient (recurring) (ONCR) | payer MEDICAID, SELFPAY ==
[2023-11-12 09:46] LABS: Basophils # 0.1 10^3/uL (0.0-0.1); Eosinophils # 0.3 10^3/uL (0.0-0.8); Eosinophils % 5.2 %; Hematocrit 41.8 % (37-53); Lymphocytes # 1.7 10^3/uL (0.8-4.8); Lymphocytes % 27.7 %; Mean Corpuscular HGB Conc 30.9 g/dL (30-55); Mean Corpuscular Volume 90.7 fl (82-101); Mean Platelet Volume 9.8 fL (7.4-10.4); Monocytes # 0.5 10^3/uL (0.2-0.9); Monocytes % 7.7 %; Neutrophils # 3.55 10^3/uL (1.8-7.7); Neutrophils % 58.1 %; Nucleated Red Blood Cells % 0 %; Platelet Count 141 10^3/cmm (157-399); Red Blood Count 4.61 10^6/uL (3.85-5.65); Red Cell Distribution Width 16.4 % (12.1-15.1); White Blood Count 6.11 10^3/uL (3.29-11.43)
[2023-11-12 10:11] LABS: Alanine Aminotransferase 18 U/L (0-41); Albumin Level 4.3 g/dL (3.5-5.2); Alkaline Phosphatase 156 U/L (40-130); Aspartate Amino Transferase 17 U/L (0-40); Blood Urea Nitrogen 14 mg/dL (6-20); Calcium 9.2 mg/dL (8.5-10.5); Carbon Dioxide 23 mmol/L (22-29); Chloride 105 mmol/L (98-107); Globulin 3.3 g/dL (1.3-4.6); Glomerular Filtration Rate 39.7 mL/min (90-130); Glucose 103 mg/dL (65-115); Osmolality Calculated 287 mOsm/kg (285-295); Sodium 138 mmol/L (136-145); Total Bilirubin 0.3 mg/dL (0.15-1.2); Total Protein 7.6 g/dL (6.6-8.7)
== END 2023-11-15 23:59 | disposition home or self-care (01) ==
PROVIDERS: Internal Medicine Medical Oncology; PCP Internal Medicine; Visit Provider Nurse Practitioner Family
DX: C92.10 Chronic myeloid leukemia, BCR/ABL-positive, not having achieved remission; F17.210 Nicotine dependence, cigarettes, uncomplicated; Z79.69 Long term (current) use of other immunomodulators and immunosuppressants; I12.9 Hypertensive chronic kidney disease with stage 1 through stage 4 chronic kidney disease, or unspecified chronic kidney disease; E11.22 Type 2 diabetes mellitus with diabetic chronic kidney disease; N18.9 Chronic kidney disease, unspecified; Z79.85 Long-term (current) use of injectable non-insulin antidiabetic drugs; Z79.899 Other long term (current) drug therapy
CPT/HCPCS: 36415; 80053; 85025; 99214

== ENCOUNTER 2023-12-14 14:18 | Oncology outpatient (recurring) (ONCR) | payer OTHER, SELFPAY ==
[2023-12-14 14:42] LABS: Basophils # 0.1 10^3/uL (0.0-0.1); Basophils % 1.2 %; Eosinophils # 0.4 10^3/uL (0.0-0.8); Eosinophils % 5.2 %; Hematocrit 40.7 % (37-53); Lymphocytes # 1.8 10^3/uL (0.8-4.8); Lymphocytes % 26.4 %; Mean Corpuscular Hemoglobin 27.8 pg (27-33); Mean Corpuscular Volume 89.6 fl (82-101); Mean Platelet Volume 10.4 fL (7.4-10.4); Monocytes # 0.5 10^3/uL (0.2-0.9); Monocytes % 6.6 %; Neutrophils # 4.18 10^3/uL (1.8-7.7); Neutrophils % 60.3 %; Nucleated Red Blood Cells % 0 %; Platelet Count 173 10^3/cmm (157-399); Red Blood Count 4.54 10^6/uL (3.85-5.65); Red Cell Distribution Width 15.8 % (12.1-15.1); White Blood Count 6.93 10^3/uL (3.29-11.43)
[2023-12-14 15:01] LABS: Alanine Aminotransferase 19 U/L (0-41); Albumin Level 4.1 g/dL (3.5-5.2); Alkaline Phosphatase 162 U/L (40-130); Aspartate Amino Transferase 21 U/L (0-40); Blood Urea Nitrogen 14 mg/dL (6-20); Calcium 8.6 mg/dL (8.5-10.5); Carbon Dioxide 23 mmol/L (22-29); Chloride 105 mmol/L (98-107); Globulin 3.2 g/dL (1.3-4.6); Glomerular Filtration Rate 45.4 mL/min (90-130); Glucose 101 mg/dL (65-115); Osmolality Calculated 287 mOsm/kg (285-295); Sodium 138 mmol/L (136-145); Total Bilirubin 0.4 mg/dL (0.15-1.2); Total Protein 7.3 g/dL (6.6-8.7)
== END 2023-12-16 23:59 | disposition home or self-care (01) ==
LOC: ONCMED 14:18
PROVIDERS: Nurse Practitioner Family; PCP Internal Medicine; Visit Provider Nurse Practitioner Family
DX: C92.10 Chronic myeloid leukemia, BCR/ABL-positive, not having achieved remission
CPT/HCPCS: 36415; 80053; 85025

== ENCOUNTER 2024-01-11 12:44 | Oncology outpatient (recurring) (ONCR) | payer MEDICAID, SELFPAY ==
[2024-01-11 13:19] LABS: Basophils # 0.1 10^3/uL (0.0-0.1); Eosinophils # 0.3 10^3/uL (0.0-0.8); Eosinophils % 5.6 %; Hematocrit 39.4 % (37-53); Lymphocytes # 1.5 10^3/uL (0.8-4.8); Lymphocytes % 25.4 %; Mean Corpuscular HGB Conc 31.5 g/dL (30-55); Mean Corpuscular Volume 88.9 fl (82-101); Mean Platelet Volume 10.4 fL (7.4-10.4); Monocytes # 0.3 10^3/uL (0.2-0.9); Monocytes % 4.9 %; Neutrophils # 3.67 10^3/uL (1.8-7.7); Neutrophils % 62.6 %; Nucleated Red Blood Cells % 0 %; Platelet Count 147 10^3/cmm (157-399); Red Blood Count 4.43 10^6/uL (3.85-5.65); Red Cell Distribution Width 15.7 % (12.1-15.1); White Blood Count 5.87 10^3/uL (3.29-11.43)
[2024-01-11 13:37] LABS: Alanine Aminotransferase 18 U/L (0-41); Alkaline Phosphatase 147 U/L (40-130); Anion Gap 13.9 (5-19); Aspartate Amino Transferase 17 U/L (0-40); Blood Urea Nitrogen 17 mg/dL (6-20); Carbon Dioxide 21 mmol/L (22-29); Chloride 106 mmol/L (98-107); Creatinine Clr Calc Pharmacy 67.5208; Globulin 2.7 g/dL (1.3-4.6); Glomerular Filtration Rate 45.3 mL/min (90-130); Glucose 132 mg/dL (65-115); Lactate Dehydrogenase 126 U/L (135-225); Osmolality Calculated 287 mOsm/kg (285-295); Potassium 3.9 mmol/L (3.5-5.1); Sodium 137 mmol/L (136-145); Total Bilirubin 0.3 mg/dL (0.15-1.2); Total Protein 6.7 g/dL (6.6-8.7)
== END 2024-01-15 23:59 | disposition home or self-care (01) ==
LOC: ONCMED 12:45
PROVIDERS: Nurse Practitioner Family; PCP Internal Medicine; Visit Provider Internal Medicine Medical Oncology
DX: C92.10 Chronic myeloid leukemia, BCR/ABL-positive, not having achieved remission; Z79.899 Other long term (current) drug therapy
CPT/HCPCS: 36415; 80053; 83615; 85025; 99214

== ENCOUNTER 2024-01-26 14:29 | Outpatient (CLI) | payer MEDICAID, SELFPAY ==
[2024-01-26 14:57] LABS: Basophils # 0.1 10^3/uL (0.0-0.1); Eosinophils # 0.3 10^3/uL (0.0-0.8); Eosinophils % 4.8 %; Hematocrit 42.5 % (37-53); Lymphocytes # 1.3 10^3/uL (0.8-4.8); Lymphocytes % 22.8 %; Mean Corpuscular HGB Conc 31.1 g/dL (30-55); Mean Corpuscular Hemoglobin 28.5 pg (27-33); Mean Corpuscular Volume 91.8 fl (82-101); Mean Platelet Volume 9.7 fL (7.4-10.4); Monocytes # 0.3 10^3/uL (0.2-0.9); Monocytes % 5.5 %; Neutrophils # 3.82 10^3/uL (1.8-7.7); Neutrophils % 65.6 %; Nucleated Red Blood Cells % 0 %; Platelet Count 152 10^3/cmm (157-399); Red Blood Count 4.63 10^6/uL (3.85-5.65); Red Cell Distribution Width 15.9 % (12.1-15.1); White Blood Count 5.83 10^3/uL (3.29-11.43)
[2024-01-26 15:22] LABS: Urine Creatinine 408 mg/dL (39-259)
[2024-01-26 15:23] LABS: UPRO/UCREAT Ratio 0.13 mg/mg CR; Urine Protein Random 52 mg/dL
[2024-01-26 15:23] LABS: Albumin Level 4.1 g/dL (3.5-5.2); Anion Gap 13.3 (5-19); Blood Urea Nitrogen 16 mg/dL (6-20); Calcium 9.1 mg/dL (8.5-10.5); Carbon Dioxide 21 mmol/L (22-29); Chloride 108 mmol/L (98-107); Glomerular Filtration Rate 45.3 mL/min (90-130); Glucose 110 mg/dL (65-115); Potassium 4.3 mmol/L (3.5-5.1); Sodium 138 mmol/L (136-145)
[2024-01-26 15:27] LABS: Parathyroid Hormone 86.6 pg/mL (15-65)
== END 2024-01-26 14:30 | disposition home or self-care (01) ==
LOC: LAB 14:31
PROVIDERS: PCP Internal Medicine; Visit Provider Registered Nurse
DX: N18.32 Chronic kidney disease, stage 3b (principal)
CPT/HCPCS: 36415; 80069; 82310; 82570; 83970; 84156; 85025

== ENCOUNTER 2024-04-12 13:06 | Oncology outpatient (recurring) (ONCR) | payer MEDICAID, SELFPAY ==
[2024-04-12 13:23] LABS: Basophils # 0.1 10^3/uL (0.0-0.1); Basophils % 1.2 %; Eosinophils # 0.4 10^3/uL (0.0-0.8); Eosinophils % 5.5 %; Hematocrit 42.8 % (37-53); Lymphocytes # 1.7 10^3/uL (0.8-4.8); Lymphocytes % 24.5 %; Mean Corpuscular HGB Conc 30.6 g/dL (30-55); Mean Corpuscular Volume 88.2 fl (82-101); Mean Platelet Volume 9.5 fL (7.4-10.4); Monocytes # 0.4 10^3/uL (0.2-0.9); Monocytes % 6.1 %; Neutrophils # 4.33 10^3/uL (1.8-7.7); Neutrophils % 62.3 %; Nucleated Red Blood Cells % 0 %; Platelet Count 170 10^3/cmm (157-399); Red Blood Count 4.85 10^6/uL (3.85-5.65); Red Cell Distribution Width 14.6 % (12.1-15.1); White Blood Count 6.94 10^3/uL (3.29-11.43)
[2024-04-12 13:41] LABS: Alanine Aminotransferase 17 U/L (0-41); Albumin Level 4.1 g/dL (3.5-5.2); Alkaline Phosphatase 157 U/L (40-130); Aspartate Amino Transferase 16 U/L (0-40); Blood Urea Nitrogen 15 mg/dL (6-20); Calcium 8.5 mg/dL (8.5-10.5); Carbon Dioxide 25 mmol/L (22-29); Chloride 107 mmol/L (98-107); Globulin 3.1 g/dL (1.3-4.6); Glomerular Filtration Rate 48.8 mL/min (90-130); Glucose 129 mg/dL (65-115); Lactate Dehydrogenase 149 U/L (135-225); Osmolality Calculated 293 mOsm/kg (285-295); Sodium 140 mmol/L (136-145); Total Bilirubin 0.3 mg/dL (0.15-1.2); Total Protein 7.2 g/dL (6.6-8.7)
[2024-04-15 22:54] LABS: P210 BCR ALB1 NOT DETECTED; P210 BCR ALB1 Yes Test Yes; Prior Results NG; Source serum
== END 2024-04-14 23:59 | disposition home or self-care (01) ==
PROVIDERS: Nurse Practitioner; PCP Internal Medicine; Visit Provider Internal Medicine
DX: C92.10 Chronic myeloid leukemia, BCR/ABL-positive, not having achieved remission (principal); F17.210 Nicotine dependence, cigarettes, uncomplicated; T45.1X5A Adverse effect of antineoplastic and immunosuppressive drugs, initial encounter; R19.7 Diarrhea, unspecified; Z79.899 Other long term (current) drug therapy
CPT/HCPCS: 36415; 80053; 81206; 83615; 85025; 99213

== ENCOUNTER 2024-08-10 13:00 | Oncology outpatient (recurring) (ONCR) | payer MEDICAID, SELFPAY ==
[2024-08-03 13:31] LABS: Basophils # 0.1 10^3/uL (0.0-0.1); Basophils % 1.2 %; Eosinophils # 0.2 10^3/uL (0.0-0.8); Hematocrit 42.5 % (37-53); Lymphocytes # 1.6 10^3/uL (0.8-4.8); Lymphocytes % 21.3 %; Mean Corpuscular HGB Conc 31.3 g/dL (30-55); Mean Corpuscular Hemoglobin 27.2 pg (27-33); Mean Corpuscular Volume 86.9 fl (82-101); Mean Platelet Volume 10.3 fL (7.4-10.4); Monocytes # 0.5 10^3/uL (0.2-0.9); Neutrophils # 5.21 10^3/uL (1.8-7.7); Neutrophils % 68.2 %; Nucleated Red Blood Cells % 0 %; Platelet Count 161 10^3/cmm (157-399); Red Blood Count 4.89 10^6/uL (3.85-5.65); Red Cell Distribution Width 16.9 % (12.1-15.1); White Blood Count 7.64 10^3/uL (3.29-11.43)
[2024-08-03 13:52] LABS: Alanine Aminotransferase 18 U/L (0-41); Albumin Level 4.2 g/dL (3.5-5.2); Alkaline Phosphatase 172 U/L (40-130); Anion Gap 15.8 (5-19); Aspartate Amino Transferase 17 U/L (0-40); Blood Urea Nitrogen 19 mg/dL (6-20); Calcium 9.4 mg/dL (8.5-10.5); Carbon Dioxide 25 mmol/L (22-29); Chloride 104 mmol/L (98-107); Globulin 3.6 g/dL (1.3-4.6); Glomerular Filtration Rate 42.2 mL/min (90-130); Glucose 104 mg/dL (65-115); Lactate Dehydrogenase 159 U/L (135-225); Magnesium 2.3 mg/dL (1.7-2.3); Osmolality Calculated 293 mOsm/kg (285-295); Phosphorus 2.6 mg/dL (2.5-4.5); Potassium 4.8 mmol/L (3.5-5.1); Sodium 140 mmol/L (136-145); Total Bilirubin 0.4 mg/dL (0.15-1.2); Total Protein 7.8 g/dL (6.6-8.7); Uric Acid 4.4 mg/dL (3.4-7.0)
[2024-08-04 11:37] LABS: Leukemia Profile (BBPL) See Report
[2024-08-15 21:45] LABS: P210 BCR ALB1 NOT DETECTED; P210 BCR ALB1 Yes Test Yes; Prior Results NG; Source blood
== END 2024-08-14 23:59 | disposition home or self-care (01) ==
PROVIDERS: PCP Internal Medicine; Visit Provider Internal Medicine
DX: C92.10 Chronic myeloid leukemia, BCR/ABL-positive, not having achieved remission; Z53.9 Procedure and treatment not carried out, unspecified reason
CPT/HCPCS: 36415; 80053; 81206; 83615; 83735; 84100; 84550; 85025; 88184; 88185

== ENCOUNTER → 2024-11-22 13:44 | Outpatient (BNVA) | payer MEDICAID, SELFPAY | PROVIDERS: PCP Internal Medicine; Visit Provider Podiatrist Foot & Ankle Surgery | DX: E11.40 Type 2 diabetes mellitus with diabetic neuropathy, unspecified (principal); L60.3 Nail dystrophy; L84 Corns and callosities; Z79.85 Long-term (current) use of injectable non-insulin antidiabetic drugs; L60.8 Other nail disorders | CPT/HCPCS: 99203 ==

== ENCOUNTER 2024-12-07 13:05 | Oncology outpatient (recurring) (ONCR) | payer MEDICAID, SELFPAY ==
[2024-11-30 13:10] LABS: Free T4 Free Thyroxine 1.13 ng/dL (0.82-1.77); Thyroid Stimulating Hormone 0.54 uIU/mL (0.27-4.20)
[2024-12-04 22:34] LABS: BCR ABL1 (IS) 0.000 (0.000); P210 BCR ALB1 NOT DETECTED; P210 BCR ALB1 Yes Test Yes; Source blood
== END 2024-12-15 23:59 | disposition home or self-care (01) ==
PROVIDERS: PCP Internal Medicine; Visit Provider Internal Medicine
DX: C92.10 Chronic myeloid leukemia, BCR/ABL-positive, not having achieved remission (principal); F17.210 Nicotine dependence, cigarettes, uncomplicated; Z79.899 Other long term (current) drug therapy
CPT/HCPCS: 36415; 81206; 84439; 84443; 99213